=== PATIENT | male | born 1980 ===

== ENCOUNTER 2018-01-29 03:29 | Inpatient (IN) | payer MEDICARE, MEDICAID, OTHER ==
--- NOTE | 2018-01-29 04:37 | ED PDOC ---
Arrival/HPI - General Chief Complaint: Medical Clearance Time Seen by Provider: 01/29/18 03:46 Historian: Patient - History of Present Illness Narrative History of Present Illness (Text): 01/29/18 04:15 37 year old male, whose past medical history includes anxiety, bipolar disorder , depression, hepatitis, and schizophrenia, presents to the emergency department via EMS complaining of feeling weak. Patient was walking around and states that he felt weak. He reports he was suppose to be on Iron pills, but ran out around a month ago. Patient does not recall which clinic he goes to. Patient denies any fever, chills, chest pain, shortness of breath, black/dark stool, nausea, vomiting, diarrhea, urinary symptoms, back pain, neck pain, headache, dizziness, or any other complaints. PMD: None. Symptom Onset: Gradual Symptom Course: Unchanged Activities at Onset: Light Context: Walking Past Medical History - Provider Review Nursing Documentation Reviewed: Yes - Infectious Disease Hx of Infectious Diseases: None - Past Medical History Past Medical History: No Previous - Cardiac Hx Hypertension: No - Pulmonary Hx Respiratory Disorders: No - Neurological Hx Seizures: No - HEENT Hx HEENT Disorder: No - Renal Hx Renal Disorder: No - Endocrine/Metabolic Hx Endocrine Disorders: No - Hematological/Oncological Hx Blood Disorders: No - Integumentary Hx Dermatological Disorder: No - Musculoskeletal/Rheumatological Hx Musculoskeletal Disorders: No - Gastrointestinal Hx Gastrointestinal Disorders: No - Genitourinary/Gynecological Hx Sexually Transmitted Diseases: No - Psychiatric Hx Anxiety: Yes Hx Bipolar Disorder: Yes Hx Depression: Yes Hx Schizophrenia: Yes Hx Substance Use: No - Surgical History Hx Appendectomy: Yes - Anesthesia Hx Anesthesia: Yes Hx Anesthesia Reactions: No - Suicidal Assessment Feels Threatened In Home Enviroment: No Family/Social History - Physician Review Nursing Documentation Reviewed: Yes Family/Social History: No Known Family HX Smoking Status: Never Smoked Hx Alcohol Use: No Hx Substance Use: No Hx Substance Use Treatment: Yes Allergies/Home Meds Allergies/Adverse Reactions: Allergies No Known Allergies Allergy (Verified 01/29/18 03:35) per patient Home Medications: Home Meds Medication Instructions Recorded Confirmed Risperidone [Risperdal] 2 mg PO BID 12/11/16 01/29/18 Benztropine [Cogentin] 1 mg PO DAILY 01/29/18 01/29/18 Review of Systems - Physician Review All systems were reviewed & negative as marked: Yes - Review of Systems Constitutional: absent: Fevers, Other (Chills) Respiratory: absent: SOB Cardiovascular: absent: Chest Pain Gastrointestinal: absent: Diarrhea, Nausea, Vomiting Genitourinary Male: absent: Dysuria, Frequency, Hematuria Musculoskeletal: absent: Back Pain, Neck Pain Neurological: Other (Weakness). absent: Headache, Dizziness Physical Exam Vital Signs Reviewed: Yes Vital Signs Temp Pulse Resp BP Pulse Ox 01/29/18 03:40 98.1 F 81 17 112/57 L 100 Temperature: Afebrile Blood Pressure: Normal Pulse: Regular Respiratory Rate: Normal Appearance: Positive for: Well-Appearing, Non-Toxic, Comfortable Pain Distress: None Mental Status: Positive for: Alert and Oriented X 3 - Systems Exam Head: Present: Atraumatic, Normocephalic Pupils: Present: PERRL Extroacular Muscles: Present: EOMI Conjunctiva: Present: Normal Mouth: Present: Moist Mucous Membranes Neck: Present: Normal Range of Motion Respiratory/Chest: Present: Clear to Auscultation, Good Air Exchange. No: Respiratory Distress, Accessory Muscle Use Cardiovascular: Present: Regular Rate and Rhythm, Normal S1, S2. No: Murmurs Abdomen: Present: Normal Bowel Sounds. No: Tenderness, Distention, Peritoneal Signs Back: Present: Normal Inspection Upper Extremity: Present: Normal Inspection. No: Cyanosis, Edema Lower Extremity: Present: Normal Inspection. No: Edema Neurological: Present: GCS=15, CN II-XII Intact, Speech Normal Skin: Present: Warm, Dry, Normal Color. No: Rashes Psychiatric: Present: Alert, Oriented x 3, Normal Insight, Normal Concentration Medical Decision Making ED Course and Treatment: 01/29/18 04:15 Impression: 37 year old male presents for feeling weak. Patient is suppose to be taking Iron pills, but ran out. Plan: -- Labs -- Reassess and disposition Progress Notes: - Lab Interpretations Lab Results: 01/29/18 05:30 01/29/18 05:30 Lab Results 01/29/18 05:30: Sodium 145, Potassium 3.9, Chloride 108 H, Carbon Dioxide 27, Anion Gap 13, BUN 12, Creatinine 0.7 L, Est GFR ( Amer) > 60, Est GFR ( Non-Af Amer) > 60, Random Glucose 93, Calcium 9.3, Total Bilirubin 0.4, AST 46, ALT 20, Alkaline Phosphatase 82, Total Protein 6.5, Albumin 3.7, Globulin 2.8, Albumin/Globulin Ratio 1.3 01/29/18 05:30: WBC 5.4, RBC 2.59 L, Hgb 3.1 L*, Hct 13.2 L*, MCV 51.0 L, MCH 12.0 L, MCHC 23.5 L, RDW 22.0 H, Plt Count 355, Gran % 67.6, Lymph % (Auto) 20.9 L, [place] % (Auto) 7.2 H, Eos % (Auto) 3.0, Baso % (Auto) 1.3, Gran # 3.65, Lymph # (Auto) 1.1 L, [place] # (Auto) 0.4, Eos # (Auto) 0.2, Baso # (Auto) 0.07 I have reviewed the lab results: Yes - Transfer of Care Patient signed out to Dr:: Adrianna Pending Labs:: labs - Scribe Statement The provider has reviewed the documentation as recorded by the Irina Roca Provider Scribe Attestation: All medical record entries made by the Khariibchris were at my direction and personally dictated by me. I have reviewed the chart and agree that the record accurately reflects my personal performance of the history, physical exam, medical decision making, and the department course for this patient. I have also personally directed, reviewed, and agree with the discharge instructions and disposition. Disposition/Present on Arrival - Present on Arrival Any Indicators Present on Arrival: No History of DVT/PE: No History of Uncontrolled Diabetes: No Urinary Catheter: No History of Decub. Ulcer: No History Surgical Site Infection Following: None - Disposition Have Diagnosis and Disposition been Completed?: Yes Diagnosis: Weakness Disposition: HOME/ ROUTINE Disposition Time: 07:00 Condition: UNKNOWN Discharge Instructions (ExitCare): Weakness (ED) Referrals: PCP,NO [Primary Care Provider] - Follow up with primary Forms: ADMET[employer] ([place]qi)
[2018-01-29 05:51] LABS: ALB/GLOB RATIO 1.3 (1.1-1.8); ALBUMIN 3.7 g/dL (3.0-4.8); ALT/SGPT 20 U/L (7-56); AST/SGOT 46 U/L (17-59); BLOOD UREA NITROGEN 12 mg/dL (7-21); CALCIUM 9.3 mg/dL (8.4-10.5); GFR AFRICAN-AMERICAN > 60; GFR NON-AFRICAN AMERICAN > 60
[2018-01-29 05:58] LABS: BASO # 0.07 K/mm3 (0.0-2.0); BASO % 1.3 % (0.0-3.0); EOS # 0.2 (0.0-0.7); GRAN # 3.65 (1.4-6.5); GRAN % 67.6 % (50.0-68.0); LYMPH # 1.1 (1.2-3.4); LYMPH % 20.9 % (22.0-35.0); MEAN CORPUSCULAR HGB CONC 23.5 g/dl (31.0-37.0); MONO # 0.4 (0.1-0.6); MONO % 7.2 % (1.0-6.0); PLATELET COUNT 355 10^3/uL (120.0-450.0); RBC 2.59 10^6/uL (3.5-6.1); WHITE BLOOD COUNT 5.4 10^3/ul (4.5-11.0)
[2018-01-29 06:09] LABS: HEMOGLOBIN 3.1 g/dL (14.0-18.0)
[2018-01-29 06:34] LABS: INR 1.1 (0.93-1.08); PARTIAL THROMBOPLASTIN TIME 26.8 Seconds (25.1-36.5); PROTHROMBIN TIME 12.7 SECONDS (9.4-12.5)
[2018-01-29 06:41] LABS: MEAN CELL VOLUME 50.7 fl (80.0-105.0); MEAN CORPUSCULAR HEMOGLOBIN 11.7 pg (25.0-35.0); MEAN CORPUSCULAR HGB CONC 23.1 g/dl (31.0-37.0); PLATELET COUNT 364 10^3/uL (120.0-450.0); RBC 2.82 10^6/uL (3.5-6.1); RED CELL DISTRIBUTION WIDTH 21.8 % (11.5-14.5); WHITE BLOOD COUNT 5.7 10^3/ul (4.5-11.0)
[2018-01-29] MEDS ORDERED: Sodium Chloride 0.9% 1,000 ML IV ONE (06:46)
[2018-01-29 06:49] LABS: HEMOGLOBIN 3.3 g/dL (14.0-18.0)
[2018-01-29 11:00] LABS: IRON < 10 ug/dL (45-180); TOTAL IRON BINDING CAPACITY 394 ug/dL (261-462)
[2018-01-29 12:25] LABS: FERRITIN 1.9 ng/mL
[2018-01-29 12:55] LABS: FOLATE 13.1 ng/mL
[2018-01-29 13:38] LABS: T4 6.8 ug/dL (5.5-11.0)
[2018-01-29 13:51] LABS: T3 1.41 ng/mL (0.97-1.69)
[2018-01-29 14:03] LABS: MEAN CELL VOLUME 60.1 fl (80.0-105.0); MEAN CORPUSCULAR HEMOGLOBIN 16.8 pg (25.0-35.0); MEAN CORPUSCULAR HGB CONC 27.9 g/dl (31.0-37.0); PLATELET COUNT 321 10^3/uL (120.0-450.0); RBC 3.28 10^6/uL (3.5-6.1); WHITE BLOOD COUNT 5.4 10^3/ul (4.5-11.0)
[2018-01-29 14:04] LABS: HEMOGLOBIN 5.5 g/dL (14.0-18.0)
[2018-01-29 15:40] VITALS: BMI 25.0
[2018-01-29] MEDS ORDERED: Influenza Vaccine 60 mcg/0.5 mL SYR (4YR UP) IM ONE (15:40)
[2018-01-29] MEDS ORDERED: Pneumococcal 23-Valent Vaccine IM ONE (15:40)
--- NOTE | 2018-01-29 16:48 | CARD ---
APPROVED REPORT EKG Measurement Heart [id number] <Conclusion> Normal sinus rhythm Normal ECG
[2018-01-29 22:03] LABS: BASO # 0.06 K/mm3 (0.0-2.0); BASO % 0.8 % (0.0-3.0); EOS # 0.2 (0.0-0.7); EOS % 2.5 % (1.5-5.0); GRAN # 5.13 (1.4-6.5); GRAN % 72.7 % (50.0-68.0); LYMPH % 13.9 % (22.0-35.0); MEAN CORPUSCULAR HEMOGLOBIN 18.8 pg (25.0-35.0); MEAN CORPUSCULAR HGB CONC 29.4 g/dl (31.0-37.0); MONO # 0.7 (0.1-0.6); MONO % 10.1 % (1.0-6.0); PLATELET COUNT 322 10^3/uL (120.0-450.0); RBC 3.72 10^6/uL (3.5-6.1); WHITE BLOOD COUNT 7.1 10^3/ul (4.5-11.0)
--- NOTE | 2018-01-29 23:59 | HP ---
DATE; 01/29/2018 HISTORY OF PRESENT ILLNESS: This 37-year-old male with longstanding history of schizophrenia and psychosis was admitted to the critical care unit earlier today with advanced anemia and weakness. He presented to the ER complaining of shortness of breath and fatigue and was noted to have a hemoglobin of 3.1 and a hematocrit of 13.2 that on repeat showed a hemoglobin of 3.3 and a hematocrit of 14.3. I discussed this case with Dr. Zackary Patel from the emergency room who performed a rectal exam and stated that the patient had guaiac-negative stool; however, given the severity of his anemia, he was admitted to critical care and is in the process of receiving packed red blood cell transfusion at this time. PAST MEDICAL HISTORY: The patient states past medical history is significant for longstanding anemia that was never further evaluated with either GI workup or blood testing for which he was simply told to take iron pills as an outpatient with which he was noncompliant. He also states he has a history of a fractured left jaw and has had a blood cell transfusion in the past for history for anemia as well. He also has a longstanding history of schizophrenia and psychosis and denied any history of IV drug misuse or abuse. FAMILY HISTORY: Noncontributory. SOCIAL HISTORY: He states he is a current nondrinker and nonsmoker. REVIEW OF SYSTEMS: Constitutional: Denied fever or chills. Head: Denied any headache or seizures. Eye review: No change in visual acuity. Ear review: No hearing loss. Throat review: No swallowing difficulty. Neck review: No stiffness. Cardiac review: No knowledge of myocardial infarction. No knowledge of hypertension. Pulmonary: No cough. No hemoptysis. GI: No hematemesis. No melena. : No dysuria. Skin: No rash. Vascular: No claudication. Psychological: Chronic schizophrenia and psychosis. MEDICATIONS: He states outpatient medications included Cogentin and Risperdal. PHYSICAL EXAMINATION: GENERAL: The patient was lying in ICU, bed 6. VITAL SIGNS: Temperature of 98.4, respirations 18, pulse 85 and blood pressure 103/48 with a pulse ox of 100% on room air. HEENT: Head normocephalic, atraumatic. Eyes: No icterus. Ears: Clear. Throat: Noninjected. NECK: Supple. HEART: Regular S1, S2. LUNGS: Clear. ABDOMEN: Soft. EXTREMITIES: No edema. SKIN: Without rash. NEUROLOGICAL: Intact. PSYCHOLOGICAL: Alert. VASCULAR: Legs warm to touch. LABORATORY DATA: White count 5400, hemoglobin 5.5, hematocrit 19.7, platelets 221,000. PT/INR 1.1, PTT 26.8. Sodium 145, K 3.9, chloride 108, bicarb 27, BUN 12, creatinine 0.7, random blood sugar 93. Iron level less than 10, TIBC 394. Ferritin level 1.9, low. Bilirubin 0.4, AST 46, ALT 20 and alk phos 82. Vitamin B12 level 214. Folic acid level 13.1, T4 of 6.8, T3 of 1.41, TSH 1.45 normal. IMPRESSION: A 37-year-old male with severe anemia, most likely iron deficiency and history of psychosis and schizophrenia in his past. PLAN: The plan at the present time will be to maintain this patient in critical care while continuing blood cell transfusion and the patient is scheduled to have Cogentin 1 mg p.o. daily and Risperdal 2 mg p.o. b.i.d. while awaiting psychiatric evaluation from Dr. Vasques and hematological evaluation with Dr. Geo Trivedi. The patient is scheduled for a repeat CBC in a.m. He has been ordered to receive Venofer 200 mg IV daily x3 days as per Dr. Geo Trivedi from Hematology. He will continue on Pepcid 40 mg p.o. at bedtime and is ordered to have a soft bland diet. Once the patient is stabilized with a sufficient hemoglobin and hematocrit, he will be ordered to have consultation with GI, Dr. Louise Butcher for scheduling of endoscopy and colonoscopy. Greater than 75 minutes was spent in the care and management, review of x-rays, labs and medication for this patient today in critical care. This case was also reviewed with Dr. Rodger Hernandez, lone lead lineman. Genia Pang MD [facility]
[2018-01-30 06:15] LABS: HEMOGLOBIN 8.6 g/dL (14.0-18.0); MEAN CELL VOLUME 65.7 fl (80.0-105.0); MEAN CORPUSCULAR HEMOGLOBIN 19.8 pg (25.0-35.0); MEAN CORPUSCULAR HGB CONC 30.1 g/dl (31.0-37.0); PLATELET COUNT 288 10^3/uL (120.0-450.0); RBC 4.35 10^6/uL (3.5-6.1); WHITE BLOOD COUNT 8.1 10^3/ul (4.5-11.0)
--- NOTE | 2018-01-30 09:19 | PN ---
DATE: 01/30/2018 PAINTER SPRAY NOTE SUBJECTIVE: The patient is resting comfortably with O2 via nasal cannula. He has less shortness of breath and has been given several units of packed red blood cells. Latest hemoglobin is approximately 8.9. The patient had no complaints of pain, nausea, vomiting or diarrhea. No abdominal pain. No fever, chills. PHYSICAL EXAMINATION VITAL SIGNS: Note that his temperature is 98.5, his pulse is 62, respirations are 22 and BP is 112/70. SKIN: Warm and dry. HEENT: Head, atraumatic and normocephalic. Eyes, reactive to light. Ear, nose and throat seemed to be within normal limits. NECK: Supple. No JVD. No thyroid enlargement, no lymph nodes. HEART: Has regular rate and rhythm. Normal S1, S2. LUNGS: Reveal good breath sounds bilaterally. ABDOMEN: Soft. Decreased bowel sounds. GENITALIA: Deferred. RECTAL: Deferred. MUSCULOSKELETAL: No joint deformities. EXTREMITIES: Reveal slight lower extremity edema. NEUROLOGIC: He seemed to be grossly intact. DATA: As far as his laboratories are concerned, his white count is 8.1, hemoglobin is 8.6, hematocrit 28.6 with platelets of 288,000 and this patient's CMP is pending. IMPRESSION: As far as my impression, this patient presented with symptomatic anemia, etiology unclear. The patient has a history of schizophrenia and bipolar disease as well as hepatitis. PLAN: As far as our plan, we will follow up with Psychiatry as well as GI and Hematology/Oncology. The patient is getting Cogentin as well as iron. He is on Pepcid, Risperdal, Tylenol and Zofran. We will continue to treat aggressively along with the other consultants and the primary care doctor. Rodger Hernandez MD
[2018-01-30 11:24] LABS: MCH 13.1 pg (27.0-33.0); MCV 48.2 fL (80.0-100.0)
--- NOTE | 2018-01-30 19:36 | PN ---
DATE: 01/30/2018 SUBJECTIVE: This on 37-year-old male was examined in ICU, critical care bed #6, and this case was reviewed in detail with his nurse, Ginger, and himself. The patient to date has had multiple blood cell transfusions and remains persistently anemic. On further questioning of the patient, he states several months ago, he did have bright red blood per rectum and melena but did not pursue any medical intervention at that time. At present, his blood work is showing severe iron-deficiency anemia and he is receiving both packed red blood cell transfusions and IV Venofer under the direction of Dr. Goe Trivedi from Oncology. At present, he denies any fever, chills, chest pain, or shortness of breath, and is wearing nasal O2. PHYSICAL EXAMINATION: VITAL SIGNS: His temperature is 98.6, respirations 21, pulse 68, and blood pressure 109/51 with a pulse ox of 99%. HEENT: Head: Normocephalic, atraumatic. Eyes: No icterus. Ears: Clear. Throat: Noninjected. NECK: Supple. HEART: Regular S1, S2. LUNGS: Clear. ABDOMEN: Soft. EXTREMITIES: No edema. SKIN: Without rash. NEUROLOGICAL: Intact. PSYCHOLOGICAL: Alert. VASCULAR: Legs warm to touch. LABORATORY DATA: White count 8100, hemoglobin 8.6, hematocrit 28.6, platelets 288,000. On admission, hemoglobin 3.1, hematocrit 13.2, and platelets 355,000. PT/INR 1.10, PTT 26.8. Sodium 145, K 3.9, chloride 108, bicarb 27, BUN 12, creatinine 0.7, random blood sugar 93. Iron level less than 10, percent saturation test not performed, ferritin 1.9, low. Bilirubin 0.4, AST 46, ALT 20, and alkaline phosphatase 82. Vitamin B12 level low, 214. Folic acid 13.1, normal. TFTs normal including TSH 1.45, T3 of 1.41, and T4 of 6.8. IMPRESSION: This is a 37-year-old male with severe iron-deficiency anemia who presented with weakness and shortness of breath, history of psychosis and longstanding schizophrenia, now with advanced anemia despite multiple packed red blood cell transfusions. 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 daily, Risperdal 2 mg p.o. b.i.d. while awaiting psychiatric evaluation by Dr. Vasques from Psychiatry. The patient is ordered to receive 1000 mcg intramuscularly of B12 and also 1000 mcg p.o. daily of B12. He is ordered to have Zofran 4 mg IV q. 6 hours p.r.n. nausea or vomiting, Venofer 200 mg IV daily for a total of 3 doses, Pepcid 40 mg p.o. at bedtime. Ultimate plan will be to have full endoscopy and colonoscopy scheduled by GI when medically stable. The patient is tolerating a soft bland hepatic diet. Stool for occult blood has been requested and the patient is ordered to have CBC in the a.m. Greater than 60 minutes was spent in the care, management, review of labs, meds, orders, and discussion with the patient at his bedside today with intensive care nursing present. All questions were answered. Genia Pang MD [facility]
--- NOTE | 2018-01-31 05:19 | CON ---
DATE: HISTORY OF PRESENT ILLNESS: Patient is a single 37-year-old male with a history of schizoaffective disorder and multiple hospitalizations most recently at [facility] about two years ago, who is in outpatient treatment with Dr. Cruz and prescribed Risperdal and Cogentin, which patient reports he has been compliant with, who was admitted to ICU after he presented to the ER complaining about weakness. Laboratory work revealed profoundly low hemoglobin and hematocrit in the range of 3.1 and 13.2 respectively. Patient was admitted in the ICU as a precaution, and Psychiatry was called, consulted as patient has a history of schizophrenia. I met this patient at bedside, and he is cooperative and well oriented to circumstances, month, and year. This provider took care of the patient a few years ago at [facility] and patient remembers this provider from that hospitalization. Patient is consistent and coherent and responses to relevant questions. He indicates that he has been taking his medications, Risperdal and Cogentin, and denies any current side effects from them and has been following up with Dr. Cruz most recently last month at [facility]. He denies any major stressors except for current homelessness. He lives at a residential; however, he does have a voucher for section 8 housing, and I think the patient will be able to move into own apartment within a month. Patient is looking forward to this move. He denies feeling depressed, feels hopeful. He denies any conflicts with anybody or thoughts to harm anybody. Patient does not appear paranoid or hypervigilant. Delusions were not elicited, and he is not hallucinating. Presently, the patient is in good control and denies any major concerns. Patient reports that he will cooperate with treatment team regarding their recommendations while he is hospitalized on the unit as he wants to get better and be discharged. PSYCHIATRIC HISTORY: Patient reports that his first hospitalization occurred about three to four years ago at [facility] after he had a suicide attempt. Patient was treated by this provider at that time. Patient also reports that he was admitted two years ago at [facility] as that was the most recent hospitalization. Patient is currently following up with Dr. Cruz at [facility] and most recent followup this last month. Patient reports that he is prescribed Risperdal and Cogentin for his symptoms. SOCIAL HISTORY: Patient was born and raised in [place]. He is single. He denies having any children. He lives in a residential but is in the process of getting voucher for a section 8 housing, and indicates that he should get his own apartment within a month. He is not working and he is on social security, disability. Regarding legal history, patient reports that he was actually in half-way recently for supposedly making the terrorist threats at the residential. Patient indicates that he was cutting a steak and cheeses down with his knife, security systems technician saw him with the knife, thought that the patient was threatening or might be a danger because he had a knife on his purse, and police were called. Patient was arrested, but released on probation for "terrorist threat;" however, patient returned to half-way after he was caught on the right rail without a ticket and was recently released a few months ago. Patient denies having any plan to harm anybody or kill anybody and does not appear to be particularly angry or irritable or edgy or guarded during my interview today. VITAL SIGNS: Vital signs were reviewed at 5:00 p.m. [facility]. Today they are temperature 98.6, pulse 91, blood pressure 111/63, and respirations 22. LABORATORY DATA: Labs were also reviewed, and most recent labs at 6:00 a.m. this morning show hemoglobin and hematocrit of 8.6 and 28.6 respectively. This is much improved from presenting values of 3.1 and 13.2 yesterday at 5:30 a.m. Of course, the patient had transfusions in the interim. Hemoglobin workup is pending. CURRENT PSYCHIATRIC MEDICATIONS: Include Cogentin 1 mg daily, Risperdal 2 mg p.o. b.i.d. IMPRESSION: Schizoaffective disorder in control, currently asymptomatic. RECOMMENDATION: Patient to continue with current medications. He does not appear to show any acute symptoms at this time, and there is no indication for change his medication. Review of history does not indicate that Risperdal is associated with anemia and unlikely cause of patient's presentation. Psychiatry will follow up one more time tomorrow to ensure stability; and if he continues to remain stable, we will sign off for patient to follow up with his outpatient psychiatrist, Dr. Cruz at the time. Carlos Marx MD [facility] # [id number]
[2018-01-31 06:14] LABS: MEAN CORPUSCULAR HEMOGLOBIN 21.3 pg (25.0-35.0); MEAN CORPUSCULAR HGB CONC 30.6 g/dl (31.0-37.0); PLATELET COUNT 329 10^3/uL (120.0-450.0); RBC 5.22 10^6/uL (3.5-6.1); WHITE BLOOD COUNT 9.3 10^3/ul (4.5-11.0)
[2018-01-31 06:27] LABS: HEMOGLOBIN 11.1 g/dL (14.0-18.0); MEAN CELL VOLUME 69.5 fl (80.0-105.0)
--- NOTE | 2018-01-31 09:15 | CON ---
DATE: 01/29/2018 NURSE PRIVATE DUTY CONSULTATION REQUESTING PHYSICIAN: Genia Pang MD CHIEF COMPLAINT: The patient presented with weakness and shortness of breath. HISTORY OF PRESENT ILLNESS: The patient is a 37-year-old male with a history of anxiety, bipolar disease, depression, and hepatitis as well as schizophrenia. The patient states that he has been feeling weak as well as some shortness of breath with mild exertion. He also states that he has been on iron pills and he has not taken his iron pills over the last month because he ran out. He has had one episode of anemia in the past where he needed transfusions that was fairly severe episode as per the patient. No fever or chills. No nausea or vomiting. No diarrhea. No chest pain. No abdominal pain. No cough or congestion. PAST MEDICAL HISTORY: Is as above. ALLERGIES: HE HAS NO KNOWN ALLERGIES. MEDICATIONS: His current medications can be evaluated as per the nurse's intake form. SOCIAL HISTORY: He is a nonsmoker. No alcohol. No present history of substance abuse. He does have a history of substance use and treatment in the past. REVIEW OF SYSTEMS: CONSTITUTIONAL: All negative. HEENT: All negative. RESPIRATORY: The patient did present with some shortness of breath on exertion. CARDIOVASCULAR: All negative. GASTROINTESTINAL: All negative. GENITOURINARY: All negative. MUSCULOSKELETAL: All negative. NEUROPSYCHIATRIC: All negative. HEMATOLOGIC: The patient presents with severe anemia. IMMUNOLOGIC: All negative. INTEGRITY: All negative. ENDOCRINE: All negative. PHYSICAL EXAMINATION: VITAL SIGNS: Temperature is 98.1, his pulse is 81, respirations are 17 and BP is 112/57. O2 saturation is 100%. HEENT: Head is atraumatic, normocephalic. Eyes reactive to light. Ears, nose and throat seem to be within normal limits. NECK: Supple. No JVD. No thyroid enlargement. No lymph nodes. HEART: Has regular rate and rhythm. Normal S1 and S2. LUNGS: Reveal good breath sounds bilaterally. ABDOMEN: Abdomen is soft, nontender. Normal bowel sounds. No organomegaly noted. GENITALIA AND RECTAL: Deferred. MUSCULOSKELETAL: No joint deformities. EXTREMITIES: Reveal 1+ lower extremity edema. NEUROLOGICALLY: He seemed to be grossly intact. LABORATORY DATA: As far as his laboratories are concerned, his white count is 5.4, hemoglobin is 3.1, hematocrit 13.2, with platelets of 355,000. Sodium is 145, potassium 4.9, chloride is 108, CO2 of 27, with a BUN of 12, creatinine of 0.7, and a glucose 93. IMPRESSION: As far as my impression, this patient has symptomatic anemia with weakness and shortness of breath on exertion. He has a history of bipolar disease with anxiety and depression as well as schizophrenia. The patient has a history of hepatitis as well. He does have a past history of anemia and requiring blood transfusions as well. PLAN: The patient has been typed and crossmatched for 4 units, and when available, he will get the transfusion. He is on IV fluids, O2 support as well. Hematology Oncology consult has been called with Dr. Trivedi, and Psychiatry consult has been called as well. We will monitor closely and continue to treat aggressively along with the other consultants and the primary care doctor. Rodger Hernandez MD
--- NOTE | 2018-01-31 10:25 | CP.CCUPN ---
<Calderon Tompkins - Last Filed: 01/31/18 10:31> CCU Subjective - Physician Review Subjective (Free Text): Patient seen and evaluated bedside in the ICU. patient says he is doing better. no acute issues overnight. No acute complaints at this time. Denies shortness of breath, weakness, chest pain or dizziness. 01/31/18 10:22 Critical Care Time Spent (in minutes): 35 CCU Objective - Vital Signs / Intake & Output Intake and Output (Last 8hrs): Intake & Output 01/30/18 01/31/18 01/31/18 22:59 06:59 14:59 Intake Total 2535 Output Total 2650 Balance -115 Intake: IV 750 Right Antecubital 750 Oral 1080 Blood Product 650 Red Blood Cells Cpd As1 325 Lr Unit [id number] Red Blood Cells Cpd As1 325 Lr Unit [id number] Other 55 Red Blood Cells Cpd As1 55 Lr Unit [id number] Output: Urine 2650 Urine, Voided 2650 - Physical Exam Head: Positive for: Atraumatic, Normocephalic Pupils: Positive for: PERRL Extroacular Muscles: Positive for: EOMI Conjunctiva: Positive for: Normal Mouth: Positive for: Moist Mucous Membranes. Negative for: Drooling Neck: Positive for: Normal Range of Motion Respiratory/Chest: Positive for: Clear to Auscultation, Good Air Exchange. Negative for: Respiratory Distress, Accessory Muscle Use Cardiovascular: Positive for: Regular Rate and Rhythm, Normal S1, S2. Negative for: Murmurs Abdomen: Positive for: Normal Bowel Sounds. Negative for: Tenderness, Distention, Peritoneal Signs Back: Positive for: Normal Inspection Upper Extremity: Positive for: Normal Inspection. Negative for: Cyanosis, Edema Lower Extremity: Positive for: Normal Inspection. Negative for: Edema Neurological: Positive for: GCS=15, CN II-XII Intact, Speech Normal Skin: Positive for: Warm, Dry, Normal Color. Negative for: Rashes Psychiatric: Positive for: Alert, Oriented x 3, Normal Insight, Normal Concentration - Medications Active Medications: Active Medications Generic Name Dose Route Start Last Admin Trade Name Freq PRN Reason Stop Dose Admin Acetaminophen 650 mg 01/29/18 07:13 Tylenol 325mg Tab PO Q6H PRN Fever >100.4 F Benztropine Mesylate 1 mg 01/29/18 10:00 01/30/18 09:46 Cogentin PO 1 mg DAILY DARREN Administration Cyanocobalamin 1,000 mcg 01/31/18 10:00 Vitamin B12 1000 Mcg Tab PO DAILY DARREN Famotidine 40 mg 01/29/18 22:00 01/31/18 05:14 Pepcid PO Not Given HS DARREN Iron Sucrose 200 mg/ Sodium 110 mls @ 110 mls/hr 01/29/18 12:30 01/30/18 09: 46 Chloride IVPB 01/31/18 10:59 110 mls/hr DAILY DARREN Administration Ondansetron HCl 4 mg 01/29/18 07:13 Zofran Inj IVP Q6H PRN Nausea/Vomiting Risperidone 2 mg 01/29/18 10:00 01/30/18 17:22 Risperdal Tab PO 2 mg BID DARREN Administration Protocol - Patient Studies Lab Studies: Microbiology Studies 01/29/18 08:35 MRSA Culture (Admit) - Final Naris MRSA NOT DETECTED Lab Studies 01/31/18 Range/Units 05:16 WBC 9.3 (4.5-11.0) 10^3/ul RBC 5.22 (3.5-6.1) 10^6/uL Hgb 11.1 L D (14.0-18.0) g/dL Hct 36.3 L (42.0-52.0) % MCV 69.5 L D (80.0-105.0) fl MCH 21.3 L (25.0-35.0) pg MCHC 30.6 L (31.0-37.0) g/dl Plt Count 329 (120.0-450.0) 10^3/uL Laboratory Results - last 24 hr 01/31/18 05:16 WBC 9.3 RBC 5.22 Hgb 11.1 L D Hct 36.3 L MCV 69.5 L D MCH 21.3 L MCHC 30.6 L Plt Count 329 EKG/Cardiology Studies: Cardiology / EKG Studies 01/30/18 16:17 EKG [ELECTROCARDIOGRAM] Urgent Comment: Reason For Exam: questionable junctional beats? Review of Systems - Constitutional Constitutional: absent: Chills - EENT Eyes: UNREMARKABLE - Cardiovascular Cardiovascular: UNREMARKABLE - Respiratory Respiratory: UNREMARKABLE - Gastrointestinal Gastrointestinal: UNREMARKABLE - Genitourinary Genitourinary: UNREMARKABLE - Neurological Neurological: UNREMARKABLE Critical Care Progress Note - Nutrition Nutrition: Nutrition Category Date Time Status Altered GI/Hepatic Diet [DIET] Diets 01/29/18 Breakfast Ordered Assessment/Plan - Assessment and Plan (Free Text) Assessment: 37 year old male with past medical history of anemia, schizophrenia and psychosis presented with anemia. Patient was monitored and treated for anemia. Plan: 1. Anemia -currently stable continue to monitor -Hgb: 11.1, Hct 36.3 -venofer -B12 -continue to monitor 2. Schizophrenia/ Psychosis -management per psyche GI Prophylaxis: Pepcid <Alhaji Luevano - Last Filed: 01/31/18 12:37> CCU Objective - Vital Signs / Intake & Output Intake and Output (Last 8hrs): Intake & Output 01/30/18 01/31/18 01/31/18 22:59 06:59 14:59 Intake Total 2535 Output Total 2650 Balance -115 Intake: IV 750 Right Antecubital 750 Oral 1080 Blood Product 650 Red Blood Cells Cpd As1 325 Lr Unit [id number] Red Blood Cells Cpd As1 325 Lr Unit [id number] Other 55 Red Blood Cells Cpd As1 55 Lr Unit [id number] Output: Urine 2650 Urine, Voided 2650 - Medications Active Medications: Active Medications Generic Name Dose Route Start Last Admin Trade Name Freq PRN Reason Stop Dose Admin Acetaminophen 650 mg 01/29/18 07:13 Tylenol 325mg Tab PO Q6H PRN Fever >100.4 F Benztropine Mesylate 1 mg 01/29/18 10:00 01/31/18 10:30 Cogentin PO 1 mg DAILY DARREN Administration Cyanocobalamin 1,000 mcg 01/31/18 10:00 01/31/18 10:30 Vitamin B12 1000 Mcg Tab PO 1,000 mcg DAILY DARREN Administration Famotidine 40 mg 01/29/18 22:00 01/31/18 05:14 Pepcid PO Not Given HS DARREN Ondansetron HCl 4 mg 01/29/18 07:13 Zofran Inj IVP Q6H PRN Nausea/Vomiting Risperidone 2 mg 01/29/18 10:00 01/31/18 10:30 Risperdal Tab PO 2 mg BID DARREN Administration Protocol - Patient Studies Lab Studies: Microbiology Studies 01/29/18 08:35 MRSA Culture (Admit) - Final Naris MRSA NOT DETECTED Lab Studies 01/31/18 Range/Units 05:16 WBC 9.3 (4.5-11.0) 10^3/ul RBC 5.22 (3.5-6.1) 10^6/uL Hgb 11.1 L D (14.0-18.0) g/dL Hct 36.3 L (42.0-52.0) % MCV 69.5 L D (80.0-105.0) fl MCH 21.3 L (25.0-35.0) pg MCHC 30.6 L (31.0-37.0) g/dl Plt Count 329 (120.0-450.0) 10^3/uL Laboratory Results - last 24 hr 01/31/18 05:16 WBC 9.3 RBC 5.22 Hgb 11.1 L D Hct 36.3 L MCV 69.5 L D MCH 21.3 L MCHC 30.6 L Plt Count 329 EKG/Cardiology Studies: Cardiology / EKG Studies 01/30/18 16:17 EKG [ELECTROCARDIOGRAM] Urgent Comment: Reason For Exam: questionable junctional beats? Critical Care Progress Note - Nutrition Nutrition: Nutrition Category Date Time Status Altered GI/Hepatic Diet [DIET] Diets 01/29/18 Breakfast Ordered Assessment/Plan - Assessment and Plan (Free Text) Plan: Patient seen and examined on rounds with resident, agree with note with following additions/exceptions: Pt is 37yo male presented with symptomatic anemia, s/p PRBC transfusion, with appropriate response in HH. Hgb stable, afebrile, HD stable, comfortable in NAD. Folow up GI, PPI. Transfer to floor.
--- NOTE | 2018-01-31 14:56 | PN ---
DATE: 01/31/2018 CRITICAL CARE PROGRESS NOTE SUBJECTIVE: This 37-year-old male who was examined in ICU bed 6 where he is receiving an IV Venofer iron infusion for severe iron-deficiency anemia. The patient was admitted with a hemoglobin of 3.1 and required approximately 8 units of blood cell transfusion. At present, his hemoglobin is 11.1 with a hematocrit of 36.3. He is out of bed to chair. He is calm. He was seen by Psychiatry and they concur with the continued use of Risperdal and Cogentin for his longstanding history of paranoid schizophrenia. PHYSICAL EXAMINATION: VITAL SIGNS: At present, he remains in a normal sinus rhythm on the child monitor. Temperature is 98.5, respirations 19, pulse 62 and blood pressure 106/64 with pulse ox 98% on room air. HEENT: Head normocephalic, atraumatic. Eyes: No icterus. Ears: Clear. Throat: Noninjected. NECK: Supple. HEART: Regular S1, S2. LUNGS: Clear. ABDOMEN: Soft. EXTREMITIES: No edema. SKIN: Without ulcers. VASCULAR: Legs warm to touch. NEURO: Intact. PSYCHOLOGICAL: Calm. LABORATORY DATA: White count 9300, hemoglobin 11.1, hematocrit 36.3, platelets 329,000. PT/INR 1.10, PTT 26.8. Sodium 145, K 3.9, chloride 108, bicarb 27, BUN 12, creatinine 0.7, random blood sugar 93. Iron level less than 10. Ferritin level low 1.9. Bilirubin 0.4, AST 46, ALT 20 and alk phos 82. B12 low 214. Folic acid normal 13.1. All thyroid function testing was normal including TSH 1.45, T3 of 1.41 and T4 of 6.8. Nasal swab, no MRSA detected. IMPRESSION: A 37-year-old male with severe iron-deficiency anemia, admitted with shortness of breath and marked weakness, history of longstanding paranoid schizophrenia and psychosis and low levels of vitamin B12. PLAN: The plan as discussed with the patient, nursing, hematology, Dr. Geo Trivedi and lighting engineer will be to continue IV iron infusion. The patient was admitted with stools that were guaiac negative, but he will still need a GI evaluation for endoscopy and colonoscopy when medically stable. He is ordered to have Cogentin 1 mg p.o. daily, Pepcid 40 mg p.o. at bedtime, Risperdal 2 mg p.o. b.i.d., vitamin B12 of 1000 mcg p.o. daily and Zofran 4 mg IV q. 6 hours p.r.n. nausea, vomiting. He is tolerating a soft bland diet. I will order a consultation with GI and a 2-D echocardiogram for completeness sake. Greater than 35 minutes was spent in the critical care management, review of labs, orders and discussion of this patient's care today. All questions were answered. Genia Pang MD MTDD
--- NOTE | 2018-01-31 16:59 | CON ---
DATE: HEMATOLOGY CONSULTATION HISTORY OF PRESENT ILLNESS: This is a 37-year-old man with severe anemia. The patient gives a poor history. He states that he was noted to be iron deficient before and ran out of his iron pills. PHYSICAL EXAMINATION: SKIN: No petechiae. No bruises. HEENT: Anicteric. NODES: Nonpalpable in axillary, cervical, supraclavicular, or inguinal regions. LUNGS: Clear at present. HEART: S1, S2. ABDOMEN: Shows no liver, no spleen, no tenderness, no rebound, no ascites. EXTREMITIES: No edema. CENTRAL NERVOUS SYSTEMS: No focal findings. LABORATORY DATA: On admission, the patient's hemoglobin is 3.3 with an MCV of 50 and ferritin was less than 2. His hemoglobin is now up to 11. He was given IV iron as well as transfusions and he says he feels better. The second thing is the B12 was 214 which was slightly low and when I reordered the B12 with homocysteine level, anti-parietal antibodies just to recheck before we decide to treat him. So at this point, he needs the GI workup to evaluate for the iron deficiency and could be on iron pills, I would suggest ferrous fumarate with Kira-Sequels to be given to him as an outpatient for at least six months to build back his iron levels and his bone marrow or as an outpatient could be arranged for him to get the iron infusions. Geo Trivedi MD
--- NOTE | 2018-01-31 17:05 | PCM.PYCHPN ---
Psychiatric Progress Note - Psychiatric Progress Note Patient seen today, length of contact: 25 Patient Chief Complaint: Patient had been admitted to the ICU in a weakened condition after being significantly anemic. He has a psychiatric history of an apparent schizoaffective disorder. Initial psychiatric consultation of Dr. michaels twice a day and reviewed. Chart reviewed. Patient interviewed. The patient has been under the care of his private psychiatrist, Dr. finn STEWART for none defined period of time. Indicates that this is not a [facility]. Patient has been hospitalized approximately 5 times. Presently does not appear to be in any acute distress. Has long here and bearded. He also has multiple tattoos. Patient indicates that he is a participant in the [facility] program and attends an [facility] 2 hours a day 2 days a week. Lives also in a assisted living situation. Does not presently appear to be in any acute distress. Not overtly homicidal suicidal or psychotic. Problems Identified/Issues Discussed: As noted above. Patient has a psychiatric history of approximately 5-6 years duration ( according to the patient). His maintained on Pep[place] and Cogentin by his psychiatrist Dr. suarez Medical Problems: Patient admitted with significant anemia. His hemoglobin and hematocrit have increased significantly since admission. Laboratory results reviewed. Diagnostic Results: Hemoglobin now 11.1 hematocrit 36.3. This is a significant improvement from his time of admission. 0. A urine drug screen was negative. DSM 5 Symptoms Update: Alert, oriented to 3 spheres. Somewhat constricted in affect. Here long, ritually Brown. Bearded. Multiple he tattooed. Denies homicidal or suicidal thoughts. Denies auditory or visual hallucinations at this time. Insight and judgment debatable. Medication Change: No Medical Record Reviewed: Yes Consults ordered or reviewed: Reviewed Mental Status Examination - Cognitive Function Orientation: Person, Place, Situation, Time Memory: Intact Attention: WNL Concentration: WNL Association: WNL Fund of Knowledge: [facility] Decription of patient's judgement and insights: Aware of reasons why he is presently hospitalized. Presents a reasonably concise psychiatric history. - Mood Mood: Neutral - Affect Affect: Constricted - Speech Speech: Appropriate, Soft - Formal Thought Process Formal Thought Process: No Impairment - Suicidal Ideation Suicidal Ideation: No - Homicidal Ideation Homicidal Ideation: No Goal/Treatment Plan - Goal/Treatment Plan Progress Toward Problem(s) and Goals/Treatment Plan: Will have social work contact his rash worker with regard to informing them of his present status and preparation for his ultimate discharge and return to their IOP program. - Smoking Cessation Smoking Cessation Initiated: No Reason for not providing: Dealing with multiple medical problems presently.
[2018-02-01 06:46] LABS: HEMOGLOBIN 11.5 g/dL (14.0-18.0); MEAN CELL VOLUME 71.8 fl (80.0-105.0); MEAN CORPUSCULAR HEMOGLOBIN 21.5 pg (25.0-35.0); MEAN CORPUSCULAR HGB CONC 29.9 g/dl (31.0-37.0); PLATELET COUNT 328 10^3/uL (120.0-450.0); RBC 5.35 10^6/uL (3.5-6.1); WHITE BLOOD COUNT 10.2 10^3/ul (4.5-11.0)
[2018-02-01] MEDS ORDERED: Sodium Chloride 0.9% 1,000 ML IV SCH (14:00)
[2018-02-01] MEDS ORDERED: Propofol 10 mg/ml Inj (20 ML) ONE ×2 (14:43→15:07)
--- NOTE | 2018-02-01 15:53 | CARD ---
APPROVED REPORT EXAM: Two-dimensional and M-mode echocardiogram with Doppler and color Doppler. INDICATION CARDIAC FUNCTION 2D DIMENSIONS Left Atrium (2D)3.8 (1.6-4.0cm)IVSd1.2 (0.7-1.1cm) LVDd5.3 (3.9-5.9cm)PWd1.2 (0.7-1.1cm) LVDs3.9 (2.5-4.0cm)FS (%) 26.8 % LVEF (%)51.8 (>50%) M-Mode DIMENSIONS Aortic Root2.70 (2.2-3.7cm)Aortic Cusp Exc.2.00 (1.5-2.0cm) Aortic Valve AoV Peak Tkxzqqog601.0cm/Sudha Peak GR.12mmHg Mitral Valve E/A ratio0.0 TDI E/Lateral E'0.0E/Medial E'0.0 Tricuspid Valve TR Peak [id number]/sRAP [id number] Peak Gr.23mmHg [id number] LEFT VENTRICLE The left ventricle is normal size. There is mild concentric left ventricular hypertrophy. The left ventricular function is normal. The left ventricular ejection fraction is within the normal range. There is normal LV segmental wall motion. RIGHT VENTRICLE The right ventricle is normal size. The right ventricular systolic function is normal. ATRIA The left atrium size is normal. The right atrium size is normal. The interatrial septum is intact with no evidence for an atrial septal defect. AORTIC VALVE The aortic valve is normal in structure. No aortic regurgitation is present. There is no aortic valvular stenosis. MITRAL VALVE The mitral valve is normal in structure. Mitral regurgitation is trace. TRICUSPID VALVE The tricuspid valve is normal in structure. There is mild tricuspid regurgitation. PULMONIC VALVE The pulmonary valve is normal in structure. GREAT VESSELS The aortic root is normal in size. The IVC is normal in size and collapses >50% with inspiration. PERICARDIAL EFFUSION There is no pleural effusion. There is no pericardial effusion. <Conclusion> Normal chamber size. Mild concentric LVH. Normal LV systolic function. Mild TR.
--- NOTE | 2018-02-01 17:37 | PN ---
DATE: 02/01/2018 SUBJECTIVE: This 37-year-old male is on schedule for upper endoscopy in the setting of severe iron-deficiency anemia which required multiple blood cell transfusions and parenteral Venofer infusion. At present, the patient remains calm despite longstanding history of paranoid schizophrenia and is cooperative with his psychotropic medication as outlined including Risperdal and Cogentin. The patient denies any fever, chills, chest pain, shortness of breath, although he was admitted with marked fatigue and shortness of breath. Of note, his 2D echocardiogram remains pending. PHYSICAL EXAMINATION: VITAL SIGNS: Temperature is 97.9, respirations 20, pulse 55, and blood pressure 103/52 with a pulse ox of 97%. HEENT: Head: Normocephalic, atraumatic. Eyes: No icterus. Ears: Clear. Throat: Noninjected. NECK: Supple. HEART: Regular, S1 and S2. LUNGS: Clear. ABDOMEN: Soft. EXTREMITIES: No edema. SKIN: Without rash. NEUROLOGIC: Intact. PSYCHOLOGIC: Calm. VASCULAR: Legs warm to touch. LABORATORY DATA: Show white count 10,200, hemoglobin 11.5, hematocrit 38.4, and platelets 328,000. PT/INR 1.10, PTT 26.8. Sodium 145, K 3.9, chloride 108, bicarb 27. BUN 12, creatinine 0.7. Random blood sugar 93. Iron level less than 10, ferritin low at 1.9. All liver function testing was normal including bilirubin 0.4, AST 46, ALT 20, and alk phos 82. Vitamin B12 level after B12 administration 996. Folic acid 13.1. All TFTs were normal and homocysteine level is normal at 10.7. IMPRESSION: A 37-year-old male with longstanding history of paranoid schizophrenia, now admitted with pronounced iron-deficiency anemia with history of gastrointestinal bleeding in his past, who has completed a successful blood transfusion and IV Venofer protocol infusion. He is on schedule to undergo endoscopy, colonoscopy, and additional testings as deemed necessary by GI. He is scheduled to receive Cogentin 1 mg p.o. daily, Pepcid 40 mg p.o. at bedtime, Risperdal 2 mg p.o. b.i.d., vitamin B12 of 1000 mcg p.o. daily, and is being followed by Dr. Vasques from Psychiatry, Dr. Butcher from GI, and Dr. Trivedi from Hematology/Oncology. Greater than 35 minutes was spent in the care management, review of labs, orders, and outlining of medication and treatment for this patient today as well as discussion with his nurse, Jackie. All questions were answered. Genia Pang MD MTDSanya
[2018-02-01] MEDS ORDERED: Peg-Electrolyte Oral Soln 4L (Golytely) PO ONE (20:03)
--- NOTE | 2018-02-02 01:29 | PN ---
DATE: SUBJECTIVE: Patient is a 37-year-old male with a prior psychiatric history that appears to be of a schizoaffective disorder, who is admitted in a state of anemia. He has been under the care of his private psychiatrist, Dr. Cruz. He has been maintained on risperidone and Cogentin in the past. Presently, psychotropically, he is being maintained on Cogentin 1 mg daily and Risperdal 2 mg b.i.d. He is alert, oriented to three spheres, cooperative, soft spoken, and provides little insight into his thought, but denies suicidality, homicidality or psychotic ideation. Nursing notes that the patient has been comfortable. The patient is scheduled for colonoscopy tomorrow under the care of Dr. Butcher. Dr. Pang's note has been reviewed. His case was reviewed with his nurse. Blood pressure 93/57, pulse 53, temperature 98.5, respiratory rate 18. His hemoglobin today has been 11.5, hematocrit 38.4. We will continue to monitor with you. Andrew Vasques MD/ PhD
--- NOTE | 2018-02-02 05:18 | PN ---
DATE: 02/01/2018 SUBJECTIVE: This is a 37-year-old patient with a past medical history of schizoaffective disorder, admitted with severe anemia, with a hemoglobin of 3.3, patient did have transfusions. He is now with hemoglobin stable at 11.5. He did not have any melena or bleeding per rectum while in the hospital. No complaints of any abdominal pain. Patient underwent an upper GI endoscopy, which showed multiple antral ulcers and also pyloric channel ulcer. PHYSICAL EXAMINATION: VITAL SIGNS: Stable. ABDOMEN: Soft. There is no tenderness. HEART si s2 heard regular LUNG Bilateral air entry present normal vesicular EXTREMITIES: No edema. No cyanosis. NEUROLOGIC: Alert. Oriented. IMPRESSION: 1. Gastric ulcers and pyloric channel ulcers. 2. Severe anemia, status post transfusion. Other comorbidities include schizoaffective disorder. The likely cause for this patient with severe anemia could be the gastrointestinal bleeding from the ulcerations. However, in view of the severity of the anemia, it is reasonable to consider colonoscopic evaluation. He may also benefit from CT evaluation of the abdomen and pelvis after the colonoscopic evaluation. I will continue the high dose proton pump inhibitor. We will continue to closely follow up his care and suggest further management based on the clinical course. Louise Butcher MD MTDSanya
[2018-02-02 06:57] LABS: HEMOGLOBIN 11.3 g/dL (14.0-18.0)
[2018-02-02 07:11] LABS: BLOOD UREA NITROGEN 12 mg/dL (7-21); CALCIUM 9.6 mg/dL (8.4-10.5); GFR AFRICAN-AMERICAN > 60; GFR NON-AFRICAN AMERICAN > 60
[2018-02-02] MEDS ORDERED: Magnesium Citrate Oral SOL (300 ml) PO STA (08:28)
[2018-02-02] MEDS ORDERED: Bisacodyl 5mg EC Tab PO STA (08:28)
--- NOTE | 2018-02-02 09:49 | CP.PCM.CON ---
History of Present Illness - History of Present Illness History of Present Illness: 02/01/18 GI Consult Note CC: Weakness Fatgiue HPI: 37 year old male with past medical history of anemia, schizophrenia and psychosis presented to [facility] with complaints of weakness. Patient states he was trying to ambulate when he became short of breath and profoundly exhausted and weak. Pt does take iron supplements at home for anemia, but has been without medications for approximately a month ago. Patient denies any fever, chills, chest pain, shortness of breath, black/dark stool, nausea, vomiting, diarrhea, urinary symptoms, back pain, neck pain, headache, dizziness, or any other complaints. In ED, pt was found to be profoundly anemic. PMHx: As above PSHx: appendectomy, jaw reduction FamHx: Denied SHx: + tobacco, +etoh socially, denied illicit substances Meds; MAR reviewed Allergies: NKDA Review of Systems - Review of Systems Review of Systems: as per HPI otherwise negative Past Patient History - Infectious Disease Hx of Infectious Diseases: None - Past Medical History & Family History Past Medical History?: No - Past Social History Smoking Status: Light Smoker < 10 Cigarettes Daily - CARDIAC Hx Hypertension: No - PULMONARY Hx Respiratory Disorders: No - NEUROLOGICAL Hx Seizures: No - HEENT Hx HEENT Problems: No - RENAL Hx Chronic Kidney Disease: No - ENDOCRINE/METABOLIC Hx Endocrine Disorders: No - HEMATOLOGICAL/ONCOLOGICAL Hx Blood Transfusions: Yes Hx Blood Transfusion Reaction: No - INTEGUMENTARY Hx Dermatological Problems: No - MUSCULOSKELETAL/RHEUMATOLOGICAL Hx Falls: Yes - GASTROINTESTINAL Hx Gastrointestinal Disorders: No - GENITOURINARY/GYNECOLOGICAL Hx Sexually Transmitted Disorders: No - PSYCHIATRIC Hx Anxiety: Yes Hx Bipolar Disorder: Yes Hx Depression: Yes Hx Schizophrenia: Yes - SURGICAL HISTORY Hx Surgeries: Yes (REPAIR FX OF RIGHT ORBIT; APPENDECTOMY; FX JAW S/P CLOSED REDUCTION ) - ANESTHESIA Hx Anesthesia Reactions: No Hx Malignant Hyperthermia: No Meds Allergies/Adverse Reactions: Allergies Allergy/AdvReac Type Severity Reaction Status Date / Time No Known Allergies Allergy Verified 01/29/18 03:35 - Medications Medications: Current Medications Acetaminophen (Tylenol 325mg Tab) 650 mg PO Q6H PRN PRN Reason: Fever >100.4 F Benztropine Mesylate (Cogentin) 1 mg PO DAILY [facility] Last Admin: 02/01/18 09:32 Dose: 1 mg Cyanocobalamin (Vitamin B12 1000 Mcg Tab) 1,000 mcg PO DAILY [facility] Last Admin: 02/01/18 09:32 Dose: 1,000 mcg Famotidine (Pepcid) 40 mg PO HS [facility] Last Admin: 02/01/18 21:36 Dose: 40 mg Ondansetron HCl (Zofran Inj) 4 mg IVP Q6H PRN PRN Reason: Nausea/Vomiting Risperidone (Risperdal Tab) 2 mg PO BID [facility] PRN Reason: Protocol Last Admin: 02/01/18 18:28 Dose: 2 mg Physical Exam - Constitutional Appears: No Acute Distress - Head Exam Head Exam: ATRAUMATIC, NORMAL INSPECTION, NORMOCEPHALIC - Eye Exam Eye Exam: EOMI, Normal appearance, PERRL Pupil Exam: NORMAL ACCOMODATION, PERRL - ENT Exam ENT Exam: Mucous Membranes Moist, Normal Exam - Neck Exam Neck exam: Positive for: Normal Inspection - Respiratory Exam Respiratory Exam: Clear to Auscultation Bilateral, NORMAL BREATHING PATTERN - Cardiovascular Exam Cardiovascular Exam: REGULAR RHYTHM, +S1, +S2 - GI/Abdominal Exam GI & Abdominal Exam: Normal Bowel Sounds, Soft. absent: Tenderness - Back Exam Back exam: NORMAL INSPECTION - Neurological Exam Neurological exam: Alert, CN II-XII Intact, Normal Gait, Oriented x3, Reflexes Normal - Psychiatric Exam Psychiatric exam: Normal Affect, Normal Mood - Skin Skin Exam: Dry, Intact, Normal Color, Warm Results - Vital Signs Recent Vital Signs: Last Vital Signs Temp 98.1 F 02/02/18 07:35 Pulse 51 L 02/02/18 07:35 Resp 20 02/02/18 07:35 BP 108/59 L 02/02/18 07:35 Pulse Ox 99 02/02/18 07:35 - Labs Result Diagrams: 02/02/18 06:15 02/02/18 06:15 Labs: Laboratory Results - last 24 hr 01/31/18 02/02/18 02/02/18 06:30 06:15 06:15 Hgb 11.3 L Hct 38.0 L Sodium 140 Potassium 4.4 Chloride 105 Carbon Dioxide 23 Anion Gap 17 BUN 12 Creatinine 0.8 Est GFR ( Amer) > 60 Est GFR (Non-Af Amer) > 60 Random Glucose 87 Calcium 9.6 Anti-Parietal Cell Ab Negative Assessment & Plan - Assessment and Plan (Free Text) Assessment: profound anemia schizoaffective disorder anxiety hepatitis Plan: Transfuse hgb of 3.3, 8 total units, stable currently EGD planned high dose ppi eventual colonoscopy diet as tolerated, npo prior to colonoscopy
[2018-02-02] MEDS ORDERED: Sodium Chloride 0.9% 1,000 ML IV SCH (13:45)
[2018-02-02] MEDS ORDERED: Propofol 10 mg/ml Inj (20 ML) ONE ×2 (13:46→14:03)
--- NOTE | 2018-02-02 14:23 | PN ---
DATE: 02/02/2018 SUBJECTIVE: This 37-year-old male was examined at the bedside and this case was reviewed in detail with him and his nurse, Deuce Dumont, registered nurse present. The patient is being readied for colonoscopy. He completed an endoscopy that was yesterday with Dr. Louise Butcher that was consistent with gastric ulcers. The patient is being followed by Dr. Andrew Vasques from Psychiatry because of chronic paranoid schizophrenia. He does take his Risperdal and Cogentin and remains calm. PHYSICAL EXAMINATION: VITAL SIGNS: Temperature is 98.1, respirations 20, pulse 51 and blood pressure 108/59 with a pulse ox of 99% on room air. HEENT: Head normocephalic, atraumatic. Eyes: No icterus. Ears: Clear. Throat: Noninjected. NECK: Supple. HEART: Regular S1, S2. LUNGS: Clear. ABDOMEN: Soft. EXTREMITIES: No edema. SKIN: Without rash. NEUROLOGICAL: Intact. PSYCHOLOGICAL: Alert and calm. VASCULAR: Legs warm to touch. LABORATORY DATA: Hemoglobin 11.3, hematocrit 38.0. Sodium 140, K 4.4, chloride 105, bicarb 23, BUN 12, creatinine 0.8, random blood sugar 87. B12 level 996. Homocysteine 10.7, normal. All thyroid function testing was normal including T4 6.8, T3 of 1.41, TSH 1.45, ferritin level low at 1.9. Antiparietal cell antibody negative. IMPRESSION: A 37-year-old male admitted with severe iron-deficiency anemia, who required blood cell transfusion and now is being readied for colonoscopy and was found to have gastric ulcers on upper endoscopy. PLAN: The plan will be to continue Cogentin 1 mg p.o. daily, Risperdal 2 mg p.o. b.i.d. He continues on 40 mg of Pepcid at bedtime, vitamin B12 of 1000 mcg p.o. daily and will need ferrous gluconate 324 mg p.o. t.i.d. upon discharge. I have discussed with the patient and nurse, Deuce Dumont to clarify if the patient is to be discharged with Dr. Louise Butcher, what H2 sedrick and dose he wants and what duration and for him to outline followup regarding his gastric ulcer findings on endoscopy. Also, the patient will need to have psychotropic medication written until he gets back to his psychiatrist as an outpatient and also social service is arranging for him to return to his [facility] where he lived previously. The patient was also advised that he will need to take [id number] vitamin B12 of 1000 mcg p.o. daily along with ferrous gluconate 324 mg p.o. t.i.d. and to have his blood work monitored as an outpatient when he returns to his physician in [place], [place]. Hopefully, he will be compliant with the above recommendations and greater than 35 minutes was spent in the care and management, review of labs, medication and orders with his nurse present at the bedside. All questions were answered. Genia Pang MD MTDD
[2018-02-02 16:09] LABS: HEPATITIS B SURFACE AG Negative (NEGATIVE)
[2018-02-02 16:18] LABS: HEPATITIS A IGM NEGATIVE (NEGATIVE); HEPATITIS B CORE AB NEGATIVE (NEGATIVE)
[2018-02-02 16:26] LABS: HEPATITIS C ANTIBODY NEGATIVE (NEGATIVE)
--- NOTE | 2018-02-03 02:30 | PN ---
DATE: SUBJECTIVE: The patient is a 37-year-old white male with a schizoaffective disorder. His chart was reviewed and case discussed with Dr. Butcher. A medical/psychiatric problem is moving because the patient has been found to have a large gastrointestinal tumor. His social supports and medical supportive network could be further evaluated. He has been under the recent care of Dr. Cruz; I believe he has recently retired. He had also been treated at the [facility]. His psychiatric history requiring inpatient care started about 3 to 4 years ago at [facility] at which time he had made a suicide attempt. The patient, at the time of my present interview with him, seems unaware of the seriousness of his condition. He is flat in affect, without overt psychotic ideation or without overt mood disturbance. He remains on Cogentin 1 mg daily and Risperdal 2 mg b.i.d. Blood pressure 111/66, pulse 60, temperature 98.4, respiratory rate 20. Hemoglobin today has been 11.3 and hematocrit 38.0, certainly improvement from the severe anemia noted on 01/29/2018 (5.5/19.7). Will get social work involved with regard to the preparation for subsequent health decision making, physical and psychiatric care. Andrew Vasques MD/ PhD
[2018-02-03] MEDS ORDERED: Barium Sulfate Susp 2.1% w/v, 2.0% w/w 450 mL Bottle PO ONE (07:33)
--- NOTE | 2018-02-03 13:01 | CT ---
PROCEDURE: CT abdomen/ pelvis triple phase liver protocol HISTORY: anemia/colonic mass. R/O cancer. Liver protocol COMPARISON: None. TECHNIQUE: Axial images of the abdomen were obtained in the pre contrast, hepatic arterial and portal venous phases of enhancement. Coronal and sagittal reformats were generated. Contrast dose: 150 mL Omnipaque 350 1104.56 Radiation dose: Total exam DLP = 1104.56 mGy-cm. This CT exam was performed using one or more of the following dose reduction techniques: Automated exposure control, adjustment of the mA and/or kV according to patient size, and/or use of iterative reconstruction technique. FINDINGS: LOWER THORAX: Densely calcified 10 mm pleural-based nodule at extreme posterior left lung base. Nonspecific. Possibly granulomatous. LIVER: Normal size, contour and attenuation. Nonspecific 10 mm low-attenuation mass in the superior right hepatic lobe. The mass does not demonstrate enhancement. Possible cyst. No other hepatic mass identified. No abnormal arterial phase enhancement appreciated. Smooth contour. Normal attenuation. No biliary dilatation. GALLBLADDER AND BILE DUCTS: Gallbladder contracted. No calcified gallstones identified. No mural thickening or pericholecystic fluid. PANCREAS: Unremarkable. No gross lesion or ductal dilatation. SPLEEN: Minimal splenomegaly. The spleen measures approximately 13 cm in greatest dimension. No focal mass. ADRENALS: Unremarkable. No mass. KIDNEYS AND URETERS: Unremarkable. No hydronephrosis. No solid mass. VASCULATURE: Unremarkable. No aortic aneurysm. BOWEL: Questionable focal mural thickening of mid rectum, versus focal lack of distension. Correlate with colonoscopic findings. No other abnormal bowel loops identified. No bowel obstruction. APPENDIX: Normal appendixGo not visualized. No secondary findings of concern. . PERITONEUM: Unremarkable. No free fluid. No free air. LYMPH NODES: Unremarkable. No enlarged lymph nodes. BLADDER: Unremarkable. REPRODUCTIVE: Unremarkable prostate BONES: No acute fracture. OTHER FINDINGS: None. IMPRESSION: Nonspecific 10 mm low-density mass in right hepatic lobe. Possible cyst. Questionable focal mural thickening in the mid rectum. Please correlate with colonoscopic findings. Minimal splenomegaly. No additional abnormality identified.
--- NOTE | 2018-02-03 13:49 | PN ---
DATE: 02/03/2018. SUBJECTIVE: This 37-year-old male was examined at the bedside and this case was reviewed in detail with himself and nurse, Deuce Alejandre, registered nurse Dr. Louise Butcher from GI and Dr. Andrew Vasques from Psychiatry. The patient was diagnosed with a left descending colon carcinoma on yesterday's colonoscopy. At present, he is awaiting a triple-phase liver protocol CT to further evaluate this colonic mass and to rule out metastatic cancer. I have placed a consultation with Dr. Kem Oliver from Surgery regarding the above findings and at present, the patient was reevaluated by Dr. Vasques who has also counseled the patient regarding the above. PHYSICAL EXAMINATION: VITAL SIGNS: His temperature is 97.9, respirations 20, pulse 65 and blood pressure 101/40 with pulse ox of 97%. HEENT: Head: Normocephalic, atraumatic. Eyes: No icterus. Ears: Clear. Throat: Noninjected. NECK: Supple. HEART: Regular S1, S2. LUNGS: Clear. ABDOMEN: Soft. EXTREMITIES: No edema. SKIN: Without rash. NEUROLOGICAL: Unchanged. PSYCHOLOGICAL: Calm. VASCULAR: Legs warm to touch. LABORATORY DATA: Hemoglobin 11.3, hematocrit 38.0. Sodium 140, K 4.4, chloride 105, bicarb 23, BUN 12, creatinine 0.8, random blood sugar 87. Anti-parietal cell antibody negative. Hepatitis A, B, C serologies are negative. IMPRESSION: A 37-year-old male with colon cancer, gastric ulcers admitted with severe iron-deficiency anemia requiring multiple blood cell transfusions and comorbidities of paranoid schizophrenia. The plan at present as discussed with the patient, nursing, GI and Psychiatry and Hematology/Oncology will be to await surgical evaluation. He continues on heart healthy soft bland diet. He is ordered to have nasal O2 p.r.n. and is awaiting a triple-phase liver protocol CT. He continues on vitamin B12 1000 mcg p.o. daily, Risperdal 2 mg p.o. b.i.d., Cogentin 1 mg p.o. daily, Pepcid 40 mg p.o. at bedtime and ultimate plan will be to assess this patient for surgical intervention and then monitor his postoperative course and set up a social network for care upon discharge. All of the above was explained in detail to the patient, nursing and and discussed with co-consultants. Greater than 35 minutes was spent in the care management, review of labs, medicines and orders for this patient today. All questions were answered. Genia Pang MD MTDSanya
--- NOTE | 2018-02-03 13:52 | CP.PCM.CON ---
History of Present Illness - History of Present Illness History of Present Illness: Surgery consult note for Dr. Oliver Patient is a 37 year old male with a past medical history of schizophrenia and anemia. He presented to the ED with complaints of shortness of breath and weakness. The patient was brought to the ED by an ambulance after he found himself feeling week upon ambulation. In the ED the patient was found to be severely anemic with a Hgb of 3. The patient had an endoscopy procedure following admission and it was found that he has gastric ulcers.The patient also had a colonoscopy done and it was found that he has a mass in distal ascending colon. Surgery was consulted for colonic mass. Denies fevers, chills, nausea, vomiting,melena, hematemesis, hematochezia, abd pain. The patient reports a weight loss of 20 lbs over the last six months. Pt received 8 unites of PRBC and feel better PMH: schizophrenia, anemia PSH: appendectomy, facial surgery for fractured left jaw Family Hx: patient denies any history of cancer in the family Allergies: NKDA Social Hx: patient smokes 1-2 cigarettes a day since he was 19 yrs old, denies alcohol, denies illicit drug use Review of Systems - Review of Systems Review of Systems: See HPI - Constitutional Constitutional: Weight Loss Additional comments: patient reports 20 lb weight loss over the 6 months - Gastrointestinal Gastrointestinal: Constipation Past Patient History - Infectious Disease Hx of Infectious Diseases: None - Past Medical History & Family History Past Medical History?: No - Past Social History Smoking Status: Light Smoker < 10 Cigarettes Daily - CARDIAC Hx Hypertension: No - PULMONARY Hx Respiratory Disorders: No - NEUROLOGICAL Hx Seizures: No - HEENT Hx HEENT Problems: No - RENAL Hx Chronic Kidney Disease: No - ENDOCRINE/METABOLIC Hx Endocrine Disorders: No - HEMATOLOGICAL/ONCOLOGICAL Hx Blood Transfusions: Yes Hx Blood Transfusion Reaction: No - INTEGUMENTARY Hx Dermatological Problems: No - MUSCULOSKELETAL/RHEUMATOLOGICAL Hx Falls: Yes - GASTROINTESTINAL Hx Gastrointestinal Disorders: No - GENITOURINARY/GYNECOLOGICAL Hx Sexually Transmitted Disorders: No - PSYCHIATRIC Hx Anxiety: Yes Hx Bipolar Disorder: Yes Hx Depression: Yes Hx Schizophrenia: Yes - SURGICAL HISTORY Hx Surgeries: Yes (REPAIR FX OF RIGHT ORBIT; APPENDECTOMY; FX JAW S/P CLOSED REDUCTION ) - ANESTHESIA Hx Anesthesia Reactions: No Hx Malignant Hyperthermia: No Meds Allergies/Adverse Reactions: Allergies Allergy/AdvReac Type Severity Reaction Status Date / Time No Known Allergies Allergy Verified 01/29/18 03:35 - Medications Medications: Current Medications Acetaminophen (Tylenol 325mg Tab) 650 mg PO Q6H PRN PRN Reason: Fever >100.4 F Benztropine Mesylate (Cogentin) 1 mg PO DAILY [facility] Last Admin: 02/03/18 09:19 Dose: 1 mg Cyanocobalamin (Vitamin B12 1000 Mcg Tab) 1,000 mcg PO DAILY [facility] Last Admin: 02/03/18 09:19 Dose: 1,000 mcg Famotidine (Pepcid) 40 mg PO HS [facility] Last Admin: 02/02/18 22:01 Dose: 40 mg Ondansetron HCl (Zofran Inj) 4 mg IVP Q6H PRN PRN Reason: Nausea/Vomiting Risperidone (Risperdal Tab) 2 mg PO BID [facility] PRN Reason: Protocol Last Admin: 02/03/18 09:19 Dose: 2 mg Physical Exam - Constitutional Appears: No Acute Distress - Head Exam Head Exam: ATRAUMATIC, NORMAL INSPECTION, NORMOCEPHALIC - Eye Exam Eye Exam: EOMI, Normal appearance - ENT Exam ENT Exam: Mucous Membranes Moist, Normal Exam - Respiratory Exam Respiratory Exam: Clear to Auscultation Bilateral, NORMAL BREATHING PATTERN - Cardiovascular Exam Cardiovascular Exam: REGULAR RHYTHM - GI/Abdominal Exam GI & Abdominal Exam: Normal Bowel Sounds, Soft. absent: Distended, Firm, Guarding, Hernia, Pulsatile Mass, Rigid, Tenderness - Rectal Exam Rectal Exam: NORMAL INSPECTION Additional comments: normal sphincter tone. No rectal mass. no bleeding - Neurological Exam Neurological exam: Alert, CN II-XII Intact, Normal Gait, Oriented x3, Reflexes Normal - Psychiatric Exam Psychiatric exam: Normal Affect, Normal Mood - Skin Skin Exam: Dry, Intact, Normal Color, Warm Results - Vital Signs Recent Vital Signs: Last Vital Signs Temp 97.9 F 02/03/18 07:27 Pulse 65 02/03/18 07:27 Resp 20 02/03/18 07:27 BP 101/40 L 02/03/18 07:27 Pulse Ox 97 02/03/18 07:27 - Labs Result Diagrams: 02/02/18 06:15 02/02/18 06:15 Labs: Laboratory Results - last 24 hr 02/02/18 11:20 Hepatitis A IgM Ab Negative Hep Bs Antigen Negative Hep B Core IgM Ab Negative Hepatitis C Antibody Negative Assessment & Plan - Assessment and Plan (Free Text) Assessment: Patient is a 37 year old male with colon mass and anemia. Plan: Plan on OR on Mon F/u pathology results of biopsy Transfuse pRBCs GI on board hemeonc consulted Monitor CBC DW Dr. Oliver
--- NOTE | 2018-02-03 17:34 | CP.PCM.PN ---
Subjective - Date & Time of Evaluation Date of Evaluation: 02/03/18 Time of Evaluation: 10:00 - Subjective Subjective: Seen and examined at the bedside earlier this morning, chart review. No acute overnight events reported. Patient status post colonoscopy yesterday found to have a descending colon lesion, awaiting to go for CT scan with triple phase. Objective - Vital Signs/Intake and Output Vital Signs (last 24 hours): Temp Pulse Resp BP Pulse Ox 98.1 F 63 18 95/50 L 98 02/03/18 14:00 02/03/18 14:00 02/03/18 14:00 02/03/18 14:00 02/03/18 14:00 Intake and Output: 02/03/18 02/03/18 06:59 18:59 Intake Total 900 Output Total 4 Balance 896 - Medications Medications: Current Medications Acetaminophen (Tylenol 325mg Tab) 650 mg PO Q6H PRN PRN Reason: Fever >100.4 F Benztropine Mesylate (Cogentin) 1 mg PO DAILY [facility] Last Admin: 02/03/18 09:19 Dose: 1 mg Cyanocobalamin (Vitamin B12 1000 Mcg Tab) 1,000 mcg PO DAILY [facility] Last Admin: 02/03/18 09:19 Dose: 1,000 mcg Erythromycin (Erythromycin) 1,000 mg PO ONCE ONE PRN Reason: Protocol Stop: 02/06/18 13:01 Erythromycin (Erythromycin) 1,000 mg PO ONCE ONE PRN Reason: Protocol Stop: 02/06/18 21:01 Famotidine (Pepcid) 40 mg PO [facility] Last Admin: 02/02/18 22:01 Dose: 40 mg Neomycin Sulfate (Neomycin Tab) 1,000 mg PO ONCE ONE Stop: 02/06/18 14:01 Neomycin Sulfate (Neomycin Tab) 1,000 mg PO ONCE ONE Stop: 02/06/18 13:01 Neomycin Sulfate (Neomycin Tab) 1,000 mg PO ONCE ONE Stop: 02/06/18 21:01 Ondansetron HCl (Zofran Inj) 4 mg IVP Q6H PRN PRN Reason: Nausea/Vomiting Risperidone (Risperdal Tab) 2 mg PO BID [facility] PRN Reason: Protocol Last Admin: 02/03/18 09:19 Dose: 2 mg - Labs Labs: 02/02/18 06:15 02/02/18 06:15 PT 12.7 SECONDS (9.4-12.5) H 01/29/18 05:30 INR 1.10 (0.93-1.08) H 01/29/18 05:30 APTT 26.8 Seconds (25.1-36.5) 01/29/18 05:30 - Constitutional Appears: No Acute Distress - Head Exam Head Exam: NORMOCEPHALIC - Eye Exam Eye Exam: Normal appearance. absent: Scleral icterus - ENT Exam ENT Exam: Mucous Membranes Moist - Neck Exam Neck Exam: Normal Inspection - Respiratory Exam Respiratory Exam: NORMAL BREATHING PATTERN. absent: Respiratory Distress - Cardiovascular Exam Cardiovascular Exam: +S1, +S2 - GI/Abdominal Exam GI & Abdominal Exam: Soft, Normal Bowel Sounds. absent: Guarding, Tenderness, Organomegaly, Rebound - Extremities Exam Extremities Exam: Normal Capillary Refill. absent: Calf Tenderness, Pedal Edema - Neurological Exam Neurological Exam: Alert, Awake, Oriented x3 Assessment and Plan - Assessment and Plan (Free Text) Assessment: Assessment: Symptomatic anemia, status post EGD/colon, found to have peptic ulcer disease, ascending colonic lesion Schizoaffective disorder Anxiety Hepatitis C Plan: Monitor H&H and transfuse as necessary Follow-up: Pathology Pending CT scan with triple phase continue high-dose PPI Recommend surgical evaluation diet as tolerated Seen and discussed with Dr. Butcher
--- NOTE | 2018-02-03 21:36 | PCM.PYCHPN ---
Psychiatric Progress Note - Psychiatric Progress Note Patient seen today, length of contact: 25 Patient Chief Complaint: Patient had been admitted to the ICU in a weakened condition after being significantly anemic. He has a psychiatric history of an apparent schizoaffective disorder. Initial psychiatric consultation of Dr. michaels twice a day and reviewed. Chart reviewed. Patient interviewed. The patient has been under the care of his private psychiatrist, Dr. finn STEWART for none defined period of time. Indicates that [facility] not a [facility]. Patient has been hospitalized approximately 5 times. Presently does not appear to be in any acute distress. Has long here and bearded. He also has multiple tattoos. Patient indicates that he is a participant in the [facility] program and attends an IOP 2 hours a day 2 days a week. Lives also in a assisted living situation. Does not presently appear to be in any acute distress. Not overtly homicidal suicidal or psychotic. Problems Identified/Issues Discussed: As noted above. Patient has a psychiatric history of approximately 5-6 years duration ( according to the patient). His maintained on [facility] by his psychiatrist Dr. suarez On February 03 discussed with patient with patient who is recently diagnosed colon cancer. Patient appears appropriate and concerned. Discussed with him the probable need for postsurgical care greater than is presently available to him has no family around. Does have siblings in the area but is not speaking to them. That is homeless and living in a homeless halfway. I think the patient will need to be in some sort of a convalescent or supervised or assisted living situation during the recovery phase of his surgery for his abdominal tumor. The patient is surprisingly accepting and appropriately dealing with this new diagnosis. Medical Problems: Patient admitted with significant anemia. His hemoglobin and hematocrit have increased significantly since admission. Laboratory results reviewed. Diagnostic Results: Hemoglobin now 11.1 hematocrit 36.3. This is a significant improvement from his time of admission. 0. A urine drug screen was negative. DSM 5 Symptoms Update: Alert, oriented to 3 spheres, quiet as is his nature. Not overtly homicidal suicidal or psychotic. Reviewed with patient the probable attempt that we will make to facilitate whatever social work services he needs it would regarding his dealing with the any legal problems he may be having A, and for supervised/assisted recuperative services. Medication Change: No Medical Record Reviewed: Yes Mental Status Examination - Cognitive Function Orientation: Person, Place, Situation, Time Memory: Intact Attention: WNL Concentration: WNL Association: WNL Fund of Knowledge: [facility] Decription of patient's judgement and insights: Aware of reasons why he is presently hospitalized. Presents a reasonably concise psychiatric history. - Mood Mood: Neutral - Affect Affect: Blunted - Speech Speech: Appropriate, Soft - Formal Thought Process Formal Thought Process: No Impairment - Suicidal Ideation Suicidal Ideation: No - Homicidal Ideation Homicidal Ideation: No Goal/Treatment Plan - Goal/Treatment Plan Progress Toward Problem(s) and Goals/Treatment Plan: Will have social work contact his rash worker with regard to informing them of his present status and preparation for his ultimate discharge and return to their IOP program. We'll redouble efforts to get social work involved in case management feeling with his postsurgical recovery. A. Otherwise he will be going to a halfway living by himself and not able to care for himself.
--- NOTE | 2018-02-04 04:45 | CON ---
DATE: Byron Garnica is seen on the floor at the request of Dr. Pang. HISTORY OF PRESENT ILLNESS: This is a healthy 37-year-old who felt weak, tired and short of breath when he came into the hospital. Hemoglobin was noted to be markedly low at 5, with indices that were low at MCV of 60, platelet count of normal. The patient received a total of 8 units of packed cells to bring it up to normal. Colonoscopy was done today that showed a large mass in the ascending colon. Biopsies are pending. Reviewed and examined the patient, never been operated. ALLERGIES: NO ALLERGIES. MEDICATIONS: No medications, except for his I believe the psychiatric medication. PHYSICAL EXAMINATION: The abdomen is soft. CAT scan of the liver is unremarkable. PLAN: We will plan laparoscopic right hemicolectomy pending pathology, thereafter. This will probably done on Wednesday, although the timing is unclear at this time. Bowel prep is started. Kem Oliver MD
--- NOTE | 2018-02-04 09:43 | CP.PCM.PN ---
Subjective - Date & Time of Evaluation Date of Evaluation: 02/04/18 Time of Evaluation: 09:39 - Subjective Subjective: Surgery: Dr. Oliver Patient doing well today. Denies n/v/f/c. Denies bloody bowel movements. Denies SOB or chest pain. Objective - Vital Signs/Intake and Output Vital Signs (last 24 hours): Temp Pulse Resp BP Pulse Ox 97.8 F 52 L 20 104/60 97 02/04/18 07:55 02/04/18 07:55 02/04/18 07:55 02/04/18 07:55 02/04/18 07:55 Intake and Output: 02/04/18 02/04/18 06:59 18:59 Intake Total 1140 Balance 1140 - Medications Medications: Current Medications Acetaminophen (Tylenol 325mg Tab) 650 mg PO Q6H PRN PRN Reason: Fever >100.4 F Benztropine Mesylate (Cogentin) 1 mg PO DAILY [facility] Last Admin: 02/03/18 09:19 Dose: 1 mg Cyanocobalamin (Vitamin B12 1000 Mcg Tab) 1,000 mcg PO DAILY [facility] Last Admin: 02/03/18 09:19 Dose: 1,000 mcg Erythromycin (Erythromycin) 1,000 mg PO ONCE ONE PRN Reason: Protocol Stop: 02/06/18 13:01 Erythromycin (Erythromycin) 1,000 mg PO ONCE ONE PRN Reason: Protocol Stop: 02/06/18 21:01 Famotidine (Pepcid) 40 mg PO HS [facility] Last Admin: 02/03/18 22:37 Dose: 40 mg Neomycin Sulfate (Neomycin Tab) 1,000 mg PO ONCE ONE Stop: 02/06/18 14:01 Neomycin Sulfate (Neomycin Tab) 1,000 mg PO ONCE ONE Stop: 02/06/18 13:01 Neomycin Sulfate (Neomycin Tab) 1,000 mg PO ONCE ONE Stop: 02/06/18 21:01 Ondansetron HCl (Zofran Inj) 4 mg IVP Q6H PRN PRN Reason: Nausea/Vomiting Risperidone (Risperdal Tab) 2 mg PO BID [facility] PRN Reason: Protocol Last Admin: 02/03/18 17:33 Dose: 2 mg - Labs Labs: 02/02/18 06:15 02/02/18 06:15 PT 12.7 SECONDS (9.4-12.5) H 01/29/18 05:30 INR 1.10 (0.93-1.08) H 01/29/18 05:30 APTT 26.8 Seconds (25.1-36.5) 01/29/18 05:30 - Constitutional Appears: Non-toxic, No Acute Distress - Head Exam Head Exam: ATRAUMATIC, NORMOCEPHALIC - Eye Exam Eye Exam: EOMI, Normal appearance - ENT Exam ENT Exam: Mucous Membranes Moist - Respiratory Exam Respiratory Exam: NORMAL BREATHING PATTERN. absent: Respiratory Distress - Cardiovascular Exam Cardiovascular Exam: REGULAR RHYTHM. absent: Tachycardia - GI/Abdominal Exam GI & Abdominal Exam: Soft. absent: Distended, Tenderness - Extremities Exam Extremities Exam: Normal Inspection. absent: Calf Tenderness - Neurological Exam Neurological Exam: Alert, Awake, Oriented x3 - Skin Skin Exam: Dry, Normal Color, Warm Assessment and Plan - Assessment and Plan (Free Text) Assessment: 37 y/o male with right sided colon mass s/p scope with biopsy Plan: -plan for surgical resection on Wednesday -can cont reg diet for now -CLD on wednesday with Golytely bowel prep -cont bowel prep on Wednesday and NPO PMN -will start oral ABX, Neomycin and Erythromycin on Wednesday preoperatively -f/u pathology results -medical management per primary -further recs per Dr. Benito Lockhart PGY3
[2018-02-04 10:46] LABS: HEMOGLOBIN A 97.7 Percent (>96.0); HEMOGLOBIN A2 1.3 Percent (1.8-3.5)
--- NOTE | 2018-02-04 11:30 | CP.PCM.PN ---
Subjective - Date & Time of Evaluation Date of Evaluation: 02/04/18 Time of Evaluation: 10:10 - Subjective Subjective: Seen and examined at the bedside this morning, chart review. Patient denies nausea, vomiting, or abdominal pain. Reports having BMs but reports they are loose. No reports of melena or bright red blood per rectum. Tolerating oral intake. He went for liver CT scan yesterday, the report was reviewed, showed 10 mm [id number] mass in the right hepatic lobe probable cyst, questionable mural thickening in the mid rectum, minimal splenomegaly, no enlarged lymph nodes, and 2 mm nonobstructing calculi in the left renal pole. Patient was evaluated by surgical team and plans for right hemicolectomy on Wednesday. Patient is aware of plan. Objective - Vital Signs/Intake and Output Vital Signs (last 24 hours): Temp Pulse Resp BP Pulse Ox 97.8 F 52 L 20 104/60 97 02/04/18 07:55 02/04/18 07:55 02/04/18 07:55 02/04/18 07:55 02/04/18 07:55 Intake and Output: 02/04/18 02/04/18 06:59 18:59 Intake Total 1140 Balance 1140 - Medications Medications: Current Medications Acetaminophen (Tylenol 325mg Tab) 650 mg PO Q6H PRN PRN Reason: Fever >100.4 F Benztropine Mesylate (Cogentin) 1 mg PO DAILY [facility] Last Admin: 02/04/18 10:40 Dose: 1 mg Cyanocobalamin (Vitamin B12 1000 Mcg Tab) 1,000 mcg PO DAILY [facility] Last Admin: 02/04/18 10:40 Dose: 1,000 mcg Erythromycin (Erythromycin) 1,000 mg PO ONCE ONE PRN Reason: Protocol Stop: 02/06/18 13:01 Erythromycin (Erythromycin) 1,000 mg PO ONCE ONE PRN Reason: Protocol Stop: 02/06/18 21:01 Famotidine (Pepcid) 40 mg PO HS [facility] Last Admin: 02/03/18 22:37 Dose: 40 mg Neomycin Sulfate (Neomycin Tab) 1,000 mg PO ONCE ONE Stop: 02/06/18 14:01 Neomycin Sulfate (Neomycin Tab) 1,000 mg PO ONCE ONE Stop: 02/06/18 13:01 Neomycin Sulfate (Neomycin Tab) 1,000 mg PO ONCE ONE Stop: 02/06/18 21:01 Ondansetron HCl (Zofran Inj) 4 mg IVP Q6H PRN PRN Reason: Nausea/Vomiting Polyethylene Glycol/Electrolytes (Golytely) 4,000 ml PO ONCE ONE Stop: 02/05/18 08:01 Risperidone (Risperdal Tab) 2 mg PO BID [facility] PRN Reason: Protocol Last Admin: 02/04/18 10:40 Dose: 2 mg - Labs Labs: 02/02/18 06:15 02/02/18 06:15 PT 12.7 SECONDS (9.4-12.5) H 01/29/18 05:30 INR 1.10 (0.93-1.08) H 01/29/18 05:30 APTT 26.8 Seconds (25.1-36.5) 01/29/18 05:30 - Constitutional Appears: No Acute Distress - Head Exam Head Exam: NORMOCEPHALIC - Eye Exam Eye Exam: Normal appearance. absent: Scleral icterus - ENT Exam ENT Exam: Mucous Membranes Moist - Neck Exam Neck Exam: Normal Inspection - Respiratory Exam Respiratory Exam: NORMAL BREATHING PATTERN. absent: Respiratory Distress - Cardiovascular Exam Cardiovascular Exam: +S1, +S2 - GI/Abdominal Exam GI & Abdominal Exam: Soft, Normal Bowel Sounds. absent: Guarding, Tenderness, Organomegaly, Rebound - Extremities Exam Extremities Exam: Normal Capillary Refill. absent: Calf Tenderness, Pedal Edema - Neurological Exam Neurological Exam: Alert, Awake, Oriented x3 - Skin Skin Exam: Dry, Warm Assessment and Plan - Assessment and Plan (Free Text) Assessment: Assessment: Symptomatic anemia, status post EGD/colon, found to have peptic ulcer disease, ascending colonic lesion, s/p ct scan report rectal was thickening NOn obstructing 2mm calculi 10 mm non low density mass right hepatic lobe, possible cyst Schizoaffective disorder Anxiety Hepatitis C?, hepatitis panel negative Plan: Monitor H&H and transfuse as necessary Follow-up Pathology continue high-dose PPI diet as tolerated surgical team plan for hemicolectomy Wednesday, prep as per surgery. Seen and discussed with Dr. Butcher
--- NOTE | 2018-02-04 16:02 | PN ---
DATE: 02/04/2018 SUBJECTIVE: This 37-year-old male remains hospitalized. He was noted to have a colon cancer on recent colonoscopy and is being readied for colon cancer surgery with Dr. Kem Oliver on 02/07/2018. The patient at present remains weak and deconditioned and was admitted with shortness of breath and fatigue in the setting of advanced iron-deficiency anemia that required approximately 8 units of packed red blood cell transfusion. At present, he remains calm. He is being followed by Dr. Andrew Vasques from Psychiatry and denies any fever, chills, chest pain or shortness of breath. 2-D echocardiogram was reviewed and shows normal wall motion and no significant valvular pathology. PHYSICAL EXAMINATION: VITAL SIGNS: Temperature is 97.8, respirations 20, pulse 52 and blood pressure 104/60 with a pulse ox of 97% on room air. HEENT: Head normocephalic, atraumatic. Eyes: No icterus. Ears: Clear. Throat: Noninjected. NECK: Supple. HEART: Regular S1, S2. LUNGS: Clear. ABDOMEN: Soft. EXTREMITIES: No edema. SKIN: Without rash. NEUROLOGICAL: Intact. PSYCHOLOGICAL: Alert and calm. VASCULAR: Legs warm to touch. NEURO: Intact. LABORATORY DATA: Hemoglobin 11.3, hematocrit 38.0. PT/INR 1.10. Sodium 140, K 4.4, chloride 105, bicarb 23, BUN 12, creatinine 0.8, random blood sugar 87. Hepatitis A, B, C serology negative. Antiparietal cell antibody negative. IMPRESSION: A 37-year-old male admitted with shortness of breath, fatigue, weakness in the setting of advanced iron-deficiency anemia that required packed red blood cell transfusion and that on endoscopy, he was noted to have gastric ulcers and on colonoscopy colon cancer. PLAN: The plan as discussed with the patient and nursing including nurse, Jackie Rahman, registered nurse will be to continue orders of Cogentin 1 mg p.o. daily, GoLYTELY to start on 02/05/2018; Pepcid 40 mg p.o. at bedtime, Risperdal 2 mg p.o. b.i.d., vitamin B12 of 1000 mcg p.o. daily, 2 L of nasal O2 p.r.n. Heart healthy diet at present and a clear liquid diet to start on 02/06/2018. The patient will be monitored by oncology and GI perioperatively and all of the above was reviewed in detail with the patient, co-consultants and nursing. Greater than 35 minutes was spent in the care and review of orders, labs, medication and testings for this patient today. All questions were answered. Genia Pang MD MTDD
--- NOTE | 2018-02-04 17:04 | CP.PCM.CON ---
History of Present Illness - History of Present Illness History of Present Illness: 37 yo man readmitted with weakness, found to have severe anemia, work up showing right colon mass, scheduled for surgery, path still pending. The patient is aware of the possibility of malignancy. Denies any family history that he is aware of. Past Patient History - Infectious Disease Hx of Infectious Diseases: None - Past Medical History & Family History Past Medical History?: No - Past Social History Smoking Status: Light Smoker < 10 Cigarettes Daily - CARDIAC Hx Hypertension: No - PULMONARY Hx Respiratory Disorders: No - NEUROLOGICAL Hx Seizures: No - HEENT Hx HEENT Problems: No - RENAL Hx Chronic Kidney Disease: No - ENDOCRINE/METABOLIC Hx Endocrine Disorders: No - HEMATOLOGICAL/ONCOLOGICAL Hx Blood Transfusions: Yes Hx Blood Transfusion Reaction: No - INTEGUMENTARY Hx Dermatological Problems: No - MUSCULOSKELETAL/RHEUMATOLOGICAL Hx Falls: Yes - GASTROINTESTINAL Hx Gastrointestinal Disorders: No - GENITOURINARY/GYNECOLOGICAL Hx Sexually Transmitted Disorders: No - PSYCHIATRIC Hx Anxiety: Yes Hx Bipolar Disorder: Yes Hx Depression: Yes Hx Schizophrenia: Yes - SURGICAL HISTORY Hx Surgeries: Yes (REPAIR FX OF RIGHT ORBIT; APPENDECTOMY; FX JAW S/P CLOSED REDUCTION ) - ANESTHESIA Hx Anesthesia Reactions: No Hx Malignant Hyperthermia: No Meds Allergies/Adverse Reactions: Allergies Allergy/AdvReac Type Severity Reaction Status Date / Time No Known Allergies Allergy Verified 01/29/18 03:35 - Medications Medications: Current Medications Acetaminophen (Tylenol 325mg Tab) 650 mg PO Q6H PRN PRN Reason: Fever >100.4 F Benztropine Mesylate (Cogentin) 1 mg PO DAILY [facility] Last Admin: 02/04/18 10:40 Dose: 1 mg Cyanocobalamin (Vitamin B12 1000 Mcg Tab) 1,000 mcg PO DAILY [facility] Last Admin: 02/04/18 10:40 Dose: 1,000 mcg Erythromycin (Erythromycin) 1,000 mg PO ONCE ONE PRN Reason: Protocol Stop: 02/06/18 13:01 Erythromycin (Erythromycin) 1,000 mg PO ONCE ONE PRN Reason: Protocol Stop: 02/06/18 21:01 Famotidine (Pepcid) 40 mg PO HS [facility] Last Admin: 02/03/18 22:37 Dose: 40 mg Neomycin Sulfate (Neomycin Tab) 1,000 mg PO ONCE ONE Stop: 02/06/18 14:01 Neomycin Sulfate (Neomycin Tab) 1,000 mg PO ONCE ONE Stop: 02/06/18 13:01 Neomycin Sulfate (Neomycin Tab) 1,000 mg PO ONCE ONE Stop: 02/06/18 21:01 Ondansetron HCl (Zofran Inj) 4 mg IVP Q6H PRN PRN Reason: Nausea/Vomiting Polyethylene Glycol/Electrolytes (Golytely) 4,000 ml PO ONCE ONE Stop: 02/05/18 08:01 Risperidone (Risperdal Tab) 2 mg PO BID [facility] PRN Reason: Protocol Last Admin: 02/04/18 10:40 Dose: 2 mg Results - Vital Signs Recent Vital Signs: Last Vital Signs Temp 97.7 F 02/04/18 14:00 Pulse 57 L 02/04/18 14:00 Resp 20 02/04/18 14:00 BP 139/60 02/04/18 14:00 Pulse Ox 97 02/04/18 14:00 - Labs Result Diagrams: 02/02/18 06:15 02/02/18 06:15 Assessment & Plan (1) Colonic mass Assessment and Plan: 37 yo man with ascending colon mass, seemingly localized, found as part of work up for severe anemia, scheduled for surgery, testing for microsatellite instability pending, patient not aware of any family history. Briefly discussed with patient regarding genetic testing for Cuello syndrome and staging of disease, if pathology shows adenocarcinoma. Will follow, check CEA level once path available Status: Acute
[2018-02-05] MEDS ORDERED: Peg-Electrolyte Oral Soln 4L (Golytely) PO ONE (08:00)
--- NOTE | 2018-02-05 08:31 | CP.PCM.PN ---
Subjective - Date & Time of Evaluation Date of Evaluation: 02/05/18 Time of Evaluation: 08:26 - Subjective Subjective: Surgery: Dr. Oliver Pt seen and examined. Resting comfortably in bed. No acute events overnight. No complaints. Objective - Vital Signs/Intake and Output Vital Signs (last 24 hours): Temp Pulse Resp BP Pulse Ox 98 F 52 L 20 99/56 L 96 02/04/18 23:08 02/04/18 23:08 02/04/18 23:08 02/04/18 23:08 02/04/18 23:08 Intake and Output: 02/05/18 02/05/18 06:59 18:59 Intake Total 960 Balance 960 - Medications Medications: Current Medications Acetaminophen (Tylenol 325mg Tab) 650 mg PO Q6H PRN PRN Reason: Fever >100.4 F Benztropine Mesylate (Cogentin) 1 mg PO DAILY [facility] Last Admin: 02/04/18 10:40 Dose: 1 mg Cyanocobalamin (Vitamin B12 1000 Mcg Tab) 1,000 mcg PO DAILY [facility] Last Admin: 02/04/18 10:40 Dose: 1,000 mcg Erythromycin (Erythromycin) 1,000 mg PO ONCE ONE PRN Reason: Protocol Stop: 02/06/18 13:01 Erythromycin (Erythromycin) 1,000 mg PO ONCE ONE PRN Reason: Protocol Stop: 02/06/18 21:01 Famotidine (Pepcid) 40 mg PO HS [facility] Last Admin: 02/04/18 22:10 Dose: 40 mg Neomycin Sulfate (Neomycin Tab) 1,000 mg PO ONCE ONE Stop: 02/06/18 14:01 Neomycin Sulfate (Neomycin Tab) 1,000 mg PO ONCE ONE Stop: 02/06/18 13:01 Neomycin Sulfate (Neomycin Tab) 1,000 mg PO ONCE ONE Stop: 02/06/18 21:01 Ondansetron HCl (Zofran Inj) 4 mg IVP Q6H PRN PRN Reason: Nausea/Vomiting Risperidone (Risperdal Tab) 2 mg PO BID [facility] PRN Reason: Protocol Last Admin: 02/04/18 17:04 Dose: 2 mg - Labs Labs: 02/02/18 06:15 02/02/18 06:15 PT 12.7 SECONDS (9.4-12.5) H 01/29/18 05:30 INR 1.10 (0.93-1.08) H 01/29/18 05:30 APTT 26.8 Seconds (25.1-36.5) 01/29/18 05:30 - Constitutional Appears: Non-toxic, No Acute Distress - Head Exam Head Exam: ATRAUMATIC, NORMOCEPHALIC - Eye Exam Eye Exam: EOMI - ENT Exam ENT Exam: Mucous Membranes Moist - Neck Exam Neck Exam: Full ROM - Respiratory Exam Respiratory Exam: NORMAL BREATHING PATTERN. absent: Accessory Muscle Use, Respiratory Distress - GI/Abdominal Exam GI & Abdominal Exam: Soft. absent: Distended, Firm, Guarding, Rigid, Tenderness , Rebound - Extremities Exam Extremities Exam: absent: Calf Tenderness, Pedal Edema - Neurological Exam Neurological Exam: Alert, Awake, Oriented x3 - Psychiatric Exam Psychiatric exam: Normal Affect, Normal Mood - Skin Skin Exam: Dry, Intact Assessment and Plan - Assessment and Plan (Free Text) Assessment: 37M w. R side colon mass Plan: -f/u AM labs -Plan on OR wednesday for colectomy -CLD starting tomorrow -Bowel prep to start tomorrow, Golytely / neomycin / erythromycin -d/w attending Zemaitis PGY3
[2018-02-05 08:37] LABS: MEAN CELL VOLUME 73.2 fl (80.0-105.0); MEAN CORPUSCULAR HGB CONC 30.1 g/dl (31.0-37.0); PLATELET COUNT 340 10^3/uL (120.0-450.0); RBC 5.45 10^6/uL (3.5-6.1); WHITE BLOOD COUNT 6.8 10^3/ul (4.5-11.0)
[2018-02-05 09:18] LABS: BLOOD UREA NITROGEN 19 mg/dL (7-21); CALCIUM 10.1 mg/dL (8.4-10.5); GFR AFRICAN-AMERICAN > 60; GFR NON-AFRICAN AMERICAN > 60
--- NOTE | 2018-02-06 | PN ---
DATE: 02/05/2018 SUBJECTIVE: This patient was seen and evaluated earlier today. The patient is comfortable. No complaints of any abdominal pain. PHYSICAL EXAMINATION: VITAL SIGNS: Temperature is 97.8, pulse is 60, blood pressure 128/66, respirations 20, O2 saturation 97%. HEENT: Atraumatic, anicteric. NECK: Supple. HEART: S1 and S2 heard. LUNGS: Bilateral air entry present. ABDOMEN: Soft. There is no mass palpable. EXTREMITIES: No edema. No cyanosis. LABORATORY DATA: Hemoglobin 12, hematocrit 39.9, WBC 6.8, platelets 340. The patient has a B12 deficiency. Serum B12 was only 214. The duodenal biopsy shows villous blunting. There is a focal increase in intraepithelial lymphocytes noticed. IMPRESSION: 1. History of iron-deficiency anemia. 2. B12 deficiency. 3. Duodenal biopsy showed a focal increase in CD3 lymphocytes. Rule out celiac disease. 4. Gastric ulcers. 5. Helicobacter pylori positive gastritis. 6. Ulcerated mass lesion in the right colon, in the distal ascending colon. RECOMMENDATIONS: 1. Elective treatment for H. pylori. 2. Request for a celiac disease profile. 3. Abnormal CAT scan showing some focal thickening in the rectum, which was not visualized during the colonoscopy. We will discuss with the surgical team regarding the sigmoidoscopic examination just before the scheduled colon resection. Thank you very much for allowing us to participate in the care of the patient. Louise Butcher MD [facility]
--- NOTE | 2018-02-06 07:29 | CP.PCM.PN ---
Subjective - Date & Time of Evaluation Date of Evaluation: 02/06/18 Time of Evaluation: 07:26 - Subjective Subjective: Surgery: Dr. Oliver Pt seen and examined. Resting comfortably in bed. Pain controlled. No complaints. Objective - Vital Signs/Intake and Output Vital Signs (last 24 hours): Temp Pulse Resp BP Pulse Ox 97.8 F 80 18 108/60 96 02/05/18 22:00 02/05/18 22:00 02/05/18 22:00 02/05/18 22:00 02/05/18 22:00 Intake and Output: 02/06/18 02/06/18 06:59 18:59 Intake Total 900 Balance 900 - Medications Medications: Current Medications Acetaminophen (Tylenol 325mg Tab) 650 mg PO Q6H PRN PRN Reason: Fever >100.4 F Benztropine Mesylate (Cogentin) 1 mg PO DAILY [facility] Last Admin: 02/05/18 10:12 Dose: 1 mg Cyanocobalamin (Vitamin B12 1000 Mcg Tab) 1,000 mcg PO DAILY [facility] Last Admin: 02/05/18 10:12 Dose: 1,000 mcg Erythromycin (Erythromycin) 1,000 mg PO ONCE ONE PRN Reason: Protocol Stop: 02/06/18 13:01 Erythromycin (Erythromycin) 1,000 mg PO ONCE ONE PRN Reason: Protocol Stop: 02/06/18 21:01 Famotidine (Pepcid) 40 mg PO [facility] Last Admin: 02/05/18 21:27 Dose: 40 mg Neomycin Sulfate (Neomycin Tab) 1,000 mg PO ONCE ONE Stop: 02/06/18 14:01 Neomycin Sulfate (Neomycin Tab) 1,000 mg PO ONCE ONE Stop: 02/06/18 13:01 Neomycin Sulfate (Neomycin Tab) 1,000 mg PO ONCE ONE Stop: 02/06/18 21:01 Ondansetron HCl (Zofran Inj) 4 mg IVP Q6H PRN PRN Reason: Nausea/Vomiting Polyethylene Glycol/Electrolytes (Golytely) 4,000 ml PO ONCE ONE Stop: 02/06/18 08:01 Risperidone (Risperdal Tab) 2 mg PO BID [facility] PRN Reason: Protocol Last Admin: 02/05/18 17:06 Dose: 2 mg - Labs Labs: 02/05/18 08:27 02/05/18 08:27 PT 12.7 SECONDS (9.4-12.5) H 01/29/18 05:30 INR 1.10 (0.93-1.08) H 01/29/18 05:30 APTT 26.8 Seconds (25.1-36.5) 01/29/18 05:30 - Constitutional Appears: Non-toxic, No Acute Distress - Head Exam Head Exam: ATRAUMATIC, NORMOCEPHALIC - Eye Exam Eye Exam: EOMI - ENT Exam ENT Exam: Mucous Membranes Moist - Neck Exam Neck Exam: Full ROM - Respiratory Exam Respiratory Exam: NORMAL BREATHING PATTERN. absent: Accessory Muscle Use, Respiratory Distress - GI/Abdominal Exam GI & Abdominal Exam: Soft. absent: Distended, Firm, Guarding, Rigid, Tenderness , Rebound - Extremities Exam Extremities Exam: absent: Calf Tenderness, Pedal Edema - Neurological Exam Neurological Exam: Alert, Awake, Oriented x3 Assessment and Plan - Assessment and Plan (Free Text) Assessment: 37M w. R colon mass Plan: -Will plan for OR tomorrow pending path results for microsatellite instability which will determine type of surgery -bowel prep today -CLD during the day -npo at midnight -d/w attending Zemaitis PGY3
[2018-02-06] MEDS ORDERED: Magnesium Citrate Oral SOL (300 ml) PO ONE ×2 (07:58→16:00)
[2018-02-06] MEDS ORDERED: Peg-Electrolyte Oral Soln 4L (Golytely) PO ONE (08:00)
[2018-02-06] MEDS ORDERED: ERYthromycin Base 250 MG DR Cap PO ONE (14:00)
--- NOTE | 2018-02-06 22:01 | RAD ---
HISTORY: pre op COMPARISON: No prior. TECHNIQUE: Chest PA and lateral FINDINGS: LUNGS: No active pulmonary disease. PLEURA: No significant pleural effusion identified. No pneumothorax apparent. CARDIOVASCULAR: Normal. OSSEOUS STRUCTURES: No significant abnormalities. VISUALIZED UPPER ABDOMEN: Normal. OTHER FINDINGS: None. IMPRESSION: No active disease.
--- NOTE | 2018-02-06 23:54 | PN ---
DATE: 02/06/2018 SUBJECTIVE: This 37-year-old male who was examined at the bedside and this case was reviewed with himself and his nurse, Tanisha Nelson, registered nurse. The patient is being bowel prepped for elective partial colectomy tomorrow a.m. for recently diagnosed colon carcinoma. The patient at present denies any fever, chills, chest pain or shortness of breath. PHYSICAL EXAMINATION: VITAL SIGNS: On physical exam, he was noted to have a temperature of 98, respirations 20, pulse 56 and blood pressure 109/56 with a pulse ox 97% room air. HEENT: Head, normocephalic and atraumatic. Eyes, no icterus. Ears, clear. Throat, noninjected. NECK: Supple. HEART: Regular. S1, S2. LUNGS: Clear. ABDOMEN: Soft. EXTREMITIES: No edema. SKIN: Without rash. NEUROLOGIC: Intact. PSYCHOLOGIC: Calm. VASCULAR: Legs warm to touch. LABORATORY DATA: White count is 6800, hemoglobin 12, hematocrit 39.9, platelets 340,000. PT/INR 1.10. PTT 26.8. Sodium 138, K 4.3, chloride 103, bicarb 26, BUN 19, creatinine 0.9, random blood sugar 69 and calcium level 10.1. Hepatitis A, B, C serology negative. A 2D echocardiogram was reviewed and shows adequate left ventricular ejection fraction and normal wall motion. Liver CT was reviewed. There was no evidence of metastatic colon cancer to the liver. It showed a probable right hepatic liver cyst. A chest x-ray has been ordered preop and is pending. IMPRESSION: This is a 37-year-old male with longstanding history of paranoid schizophrenia, admitted with marked advanced anemia, which was found to be secondary to iron-deficiency with gastric ulcer on upper endoscopy and colon cancer on colonoscopy. The patient continues on bowel prep, will be monitored closely perioperatively and all of the above was reviewed in detail with the patient, nursing, Dr. Vasques from Psychiatry, Dr. Kem Oliver from Surgery and Dr. Louise Butcher from GI as well as Dr. Geo Trivedi from Hematology/Oncology. Greater than 35 minutes was spent in the care management, review of x-rays, labs and medication for this patient preoperatively. All questions were answered. Genia Pang MD [facility] # [id number] ALESHA
--- NOTE | 2018-02-07 05:27 | PN ---
DATE: 02/06/2018 SUBJECTIVE: This patient was seen and evaluated earlier today. The patient is comfortable. Tolerating the bowel preparation. PHYSICAL EXAMINATION: VITAL SIGNS: Pulse 99, blood pressure is 121/58, respirations 18. HEENT: Atraumatic and anicteric. NECK: Supple. HEART: S1 and S2 heard. LUNGS: Bilateral air entry present. ABDOMEN: Soft. There is no tenderness. EXTREMITIES: No edema. No cyanosis. LABORATORY DATA: No recent labs today. IMPRESSION: This is a 37-year-old patient with large ulcerated mass in the proximal ascending colon, clinically suspected of adenocarcinoma, status post biopsy, final path pending. But in view of his age, the patient also had a normal colon biopsy taken for a microsatellite instability. The normal tissue biopsy was also sent. This is pending. IMPRESSION: 1. Iron deficiency anemia. 2. B12 deficiency. 3. Rule out celiac disease. There is some focal increase in CD3, lymphocytes present with mild blending of the mucosa. 4. Gastric ulcer. The patient has a history of prepyloric gastric ulcers. The patient's endoscopy showed it. The abnormal CAT scan shows some focal abnormalities in the rectum area, which I did not see during the colonoscopy. PLAN: The patient is cleared for an OR tomorrow. We will discuss with surgical team regarding the intraoperative sigmoidoscopy and evaluate. Would recommend celiac disease profile. The patient is scheduled for an OR tomorrow. flexible sigmoidoscopic examination at that time. The patient had some questionable focal abnormalities in the rectum. We will request the surgical team to consider a sigmoidoscopy prior to the colon resection. Discussed with the nursing staff. We will continue to closely follow up his care and suggest further management based on the clinical course. Thank you very much for allowing me to participate in the care of the patient. Louise Butcher MD
[2018-02-07 07:11] LABS: BASO # 0.04 K/mm3 (0.0-2.0); BASO % 0.6 % (0.0-3.0); EOS # 0.2 (0.0-0.7); EOS % 2.4 % (1.5-5.0); GRAN # 5.67 (1.4-6.5); GRAN % 80.1 % (50.0-68.0); HEMOGLOBIN 12.1 g/dL (14.0-18.0); LYMPH # 0.6 (1.2-3.4); MEAN CELL VOLUME 73.3 fl (80.0-105.0); MEAN CORPUSCULAR HEMOGLOBIN 22.2 pg (25.0-35.0); MEAN CORPUSCULAR HGB CONC 30.3 g/dl (31.0-37.0); MONO # 0.6 (0.1-0.6); MONO % 7.9 % (1.0-6.0); PLATELET COUNT 320 10^3/uL (120.0-450.0); RBC 5.46 10^6/uL (3.5-6.1); WHITE BLOOD COUNT 7.1 10^3/ul (4.5-11.0)
[2018-02-07 07:24] LABS: INR 1.12 (0.93-1.08); PARTIAL THROMBOPLASTIN TIME 28.6 Seconds (25.1-36.5); PROTHROMBIN TIME 12.9 SECONDS (9.4-12.5)
[2018-02-07 07:53] LABS: ALB/GLOB RATIO 1.3 (1.1-1.8); ALBUMIN 4.2 g/dL (3.0-4.8); ALT/SGPT 26 U/L (7-56); AST/SGOT 31 U/L (17-59); BLOOD UREA NITROGEN 17 mg/dL (7-21); CALCIUM 9.9 mg/dL (8.4-10.5); GFR AFRICAN-AMERICAN > 60; GFR NON-AFRICAN AMERICAN > 60
[2018-02-07 08:40] LABS: ANISOCYTOSIS 2+; EOSINOPHIL 3 % (0.0-3.0); LYMPHOCYTE 10 % (22.0-35.0); MICROCYTOSIS 3+; MONOCYTE 3 % (1.0-6.0); NEUTROPHIL 84 % (50.0-70.0); POIKILOCYTOSIS 3+
[2018-02-07 08:41] LABS: OVALOCYTES 1+; TEAR DROP CELLS SLIGHT
[2018-02-07 08:42] LABS: LARGE PLATELETS PRESENT; PLATELET ESTIMATE NORMAL (NORMAL)
--- NOTE | 2018-02-07 08:43 | PN ---
DATE: 02/05/2018 SUBJECTIVE: This 37-year-old male was examined at his bedside and this case was reviewed in detail with his nurse, Lizzette Barfield, registered nurse. The patient is being readied for elective colon surgery for recently diagnosed colon cancer. This will be scheduled for 02/07/2018. The patient denies any fever, chills, chest pain or shortness of breath and recent 2-D echocardiogram showed no significant wall motion abnormalities, nor valvular disturbances. PHYSICAL EXAMINATION: VITAL SIGNS: At present, his temperature is 97.8, respirations 20, pulse 60 and blood pressure 128/66 with a pulse ox of 97% on room air. HEENT: Head: Normocephalic, atraumatic. Eyes: No icterus. Ears: Clear. Throat: Noninjected. NECK: Supple. HEART: Regular S1, S2. LUNGS: Clear. ABDOMEN: Soft. EXTREMITIES: No edema. SKIN: Without rash. NEUROLOGICAL: Intact. PSYCHOLOGICAL: Alert. VASCULAR: Legs warm to touch. LABORATORY DATA: White count 6800, hemoglobin 12, hematocrit 39.9, platelets 340,000. PT/INR 1.10, PTT 26.8. Sodium 138, K 4.3, chloride 103, bicarb 26, BUN 19, creatinine 0.9, random blood sugar 69. Calcium normal 10.1. Antiparietal cell antibody negative. Hepatitis A, B, C serology negative. Liver CT was reviewed. The patient was noted to have a left kidney stone, nonobstructive and a probable right hepatic lobe cyst. Also on surgical specimen obtained during endoscopy, he was noted to have moderate chronic active gastritis with H. pylori positive on further evaluation. This most likely will require Prevpac that will need to be discussed regarding timing given surgery planning for Wednesday a.m. At present, the plan is to continue his heart-healthy bland diet and tomorrow morning, he will be started on clear liquid diet and be made n.p.o. after midnight. At present, he continues on Zofran p.r.n. nausea, vomiting, oral vitamin B12 1000 mcg daily, Risperdal 2 mg p.o. b.i.d. and Cogentin 1 mg daily with Pepcid 40 mg p.o. at bedtime and Tylenol 650 p.o. q.6 hours p.r.n. pain or temperature greater than 101. All of the above was discussed in detail with the patient, Dr. Louise Butcher from GI, Dr. Kem Oliver from Surgery and Dr. Andrew Vasques from Psychiatry. The patient is aware, calm and in agreement with elective surgery. All of the above was discussed in detail with him at bedside. Genia Pang MD [facility]TD[facility]
[2018-02-07] MEDS ORDERED: cefTRIAXone (Rocephin) 1 gm Inj ONE (10:01)
[2018-02-07] MEDS ORDERED: metroNIDAZOLE IV 500 mg/100 ml 500 MG/100 ML BAG ONE (10:01)
[2018-02-07] MEDS ORDERED: Bupivacaine 0.5% Inj(30mL) ONE (10:01)
[2018-02-07] MEDS ORDERED: Propofol 10 mg/ml Inj (20 ML) ONE ×2 (10:23→12:46)
[2018-02-07] MEDS ORDERED: Midazolam 2 MG/2 ML VIAL ONE (10:23)
[2018-02-07] MEDS ORDERED: Succinylcholine 200 mg/10 ml Inj IV ONE (10:24)
[2018-02-07] MEDS ORDERED: Rocuronium 10 mg/ml (5 ml) ONE ×2 (10:24→11:13)
[2018-02-07] MEDS ORDERED: Bupivacaine-Epi 0.25%-1:200,000 PF Inj ONE (10:41)
--- NOTE | 2018-02-07 10:47 | CP.PCM.PN ---
<Ruddy Goode - Last Filed: 02/07/18 10:42> Subjective - Date & Time of Evaluation Date of Evaluation: 02/07/18 Time of Evaluation: 10:43 - Subjective Subjective: Gastroenterology Progress note for Dr. Butcher This 37M was seen and examined this AM at bedside. No acute events reported overnight. Pt has no complaints at this time denies any nausea vomiting chest pain. He is to go for surgery today. Objective - Vital Signs/Intake and Output Vital Signs (last 24 hours): Temp Pulse Resp BP Pulse Ox 97.9 F 74 20 119/60 94 L 02/07/18 07:30 02/07/18 07:30 02/07/18 07:30 02/07/18 07:30 02/07/18 07:30 Intake and Output: 02/07/18 02/07/18 06:59 18:59 Intake Total 960 Balance 960 - Medications Medications: Current Medications Acetaminophen (Tylenol 325mg Tab) 650 mg PO Q6H PRN PRN Reason: Fever >100.4 F Benztropine Mesylate (Cogentin) 1 mg PO DAILY [facility] Last Admin: 02/07/18 09:24 Dose: Not Given Cyanocobalamin (Vitamin B12 1000 Mcg Tab) 1,000 mcg PO DAILY [facility] Last Admin: 02/07/18 09:23 Dose: Not Given Famotidine (Pepcid) 40 mg PO HS [facility] Last Admin: 02/06/18 21:18 Dose: 40 mg Ondansetron HCl (Zofran Inj) 4 mg IVP Q6H PRN PRN Reason: Nausea/Vomiting Risperidone (Risperdal Tab) 2 mg PO BID [facility] PRN Reason: Protocol Last Admin: 02/07/18 09:24 Dose: Not Given - Labs Labs: 02/07/18 06:30 02/07/18 06:30 PT 12.9 SECONDS (9.4-12.5) H 02/07/18 06:30 INR 1.12 (0.93-1.08) H 02/07/18 06:30 APTT 28.6 Seconds (25.1-36.5) 02/07/18 06:30 - Constitutional Appears: Non-toxic, No Acute Distress - Head Exam Head Exam: ATRAUMATIC, NORMOCEPHALIC - Eye Exam Eye Exam: EOMI - ENT Exam ENT Exam: Mucous Membranes Moist - Neck Exam Neck Exam: Full ROM - Respiratory Exam Respiratory Exam: NORMAL BREATHING PATTERN. absent: Accessory Muscle Use, Respiratory Distress - GI/Abdominal Exam GI & Abdominal Exam: Soft. absent: Distended, Firm, Guarding, Rigid, Tenderness , Rebound - Extremities Exam Extremities Exam: absent: Calf Tenderness, Pedal Edema - Neurological Exam Neurological Exam: Alert, Awake, Oriented x3 Assessment and Plan - Assessment and Plan (Free Text) Assessment: Symptomatic anemia, status post EGD/colon, found to have peptic ulcer disease, ascending colonic lesion, s/p ct scan report rectal was thickening NOn obstructing 2mm calculi 10 mm non low density mass right hepatic lobe, possible cyst Schizoaffective disorder Anxiety Hepatitis C?, hepatitis panel negative Plan: Followup MSI testing further recommendations dependent on results Followup possible OR today D/W Dr. Hadley Goode PGY2 <Louise Butcher V - Last Filed: 02/07/18 23:53> Objective - Vital Signs/Intake and Output Vital Signs (last 24 hours): Temp Pulse Resp BP Pulse Ox 97.9 F 61 17 124/73 97 02/07/18 14:45 02/07/18 14:45 02/07/18 14:45 02/07/18 14:45 02/07/18 14:45 - Medications Medications: Current Medications Acetaminophen (Tylenol 325mg Tab) 650 mg PO Q6H PRN PRN Reason: Fever >100.4 F Benztropine Mesylate (Cogentin) 1 mg PO DAILY [facility] Last Admin: 02/07/18 09:24 Dose: Not Given Cyanocobalamin (Vitamin B12 1000 Mcg Tab) 1,000 mcg PO DAILY [facility] Last Admin: 02/07/18 09:23 Dose: Not Given Enoxaparin Sodium (Lovenox) 30 mg SC DAILY [facility] PRN Reason: Protocol Famotidine (Pepcid) 40 mg PO HS [facility] Last Admin: 02/07/18 22:01 Dose: 40 mg Lactated Ringer's (Lactated Ringer's) 1,000 mls @ 120 mls/hr IV .Q8H20M [facility] Ceftriaxone Sodium (Rocephin 1 Gram Ivpb) 1 gm in 100 mls @ 100 mls/hr IVPB DAILY [facility] PRN Reason: Protocol Metronidazole (Flagyl) 250 mg in 50 mls @ 100 mls/hr IVPB Q8 [facility] PRN Reason: Protocol Stop: 02/12/18 22:01 Last Admin: 02/07/18 22:00 Dose: 100 mls/hr Morphine Sulfate (Morphine) 4 mg IVP Q4H PRN PRN Reason: Pain, severe (8-10) Last Admin: 02/07/18 22:09 Dose: 4 mg Ondansetron HCl (Zofran Inj) 4 mg IVP Q6H PRN PRN Reason: Nausea/Vomiting Oxycodone HCl (Oxycodone Immediate Release Tab) 5 mg PO Q4 PRN PRN Reason: Pain, moderate (4-7) Risperidone (Risperdal Tab) 2 mg PO BID [facility] PRN Reason: Protocol Last Admin: 02/07/18 18:32 Dose: Not Given - Labs Labs: 02/07/18 15:20 02/07/18 06:30 PT 12.9 SECONDS (9.4-12.5) H 02/07/18 06:30 INR 1.12 (0.93-1.08) H 02/07/18 06:30 APTT 28.6 Seconds (25.1-36.5) 02/07/18 06:30 Attending/Attestation - Attestation I have personally seen and examined this patient.: Yes I have fully participated in the care of the patient.: Yes I have reviewed all pertinent clinical information, including history, physical exam and plan: Yes Notes (Text): p 02/07/18 23:53
[2018-02-07] MEDS ORDERED: MetroNIDAZOLE 500 mg/100 ml IVPB ONE (11:05)
[2018-02-07] MEDS ORDERED: Bupivacaine 0.25% Inj(30mL) ONE (11:30)
[2018-02-07] MEDS ORDERED: Neostigmine Methylsulfate 3mg/3ml Syringe IV ONE (11:41)
[2018-02-07] MEDS ORDERED: Sevoflurane - Inhalation Anesthetic Liq (250 ml) ONE (12:24)
[2018-02-07] MEDS ORDERED: Morphine 4 mg/ml ISec ONE ×2 (12:45→12:54)
[2018-02-07] MEDS ORDERED: HYDROmorphone 0.5 mg/0.5 ml ISec IVP PRN (13:27)
--- NOTE | 2018-02-07 13:29 | PCM.SURG1 ---
Surgeon's Initial Post Op Note - Surgeon's Notes Surgeon: Dr. Oliver Certified Recreational Therapist: Dr. Arreaga, Dr. King Type of Anesthesia: General Endo Pre-Operative Diagnosis: Ascending Colon Mass Operative Findings: Ascending Colon Mass Post-Operative Diagnosis: Ascending Colon Mass Operation Performed: Right hemicolectomy with anastomosis and sigmoidoscopy Specimen/Specimens Removed: Right Colon Estimated Blood Loss: EBL {In ML}: 100 Blood Products Given: N/A Drains Used: No Drains Post-Op Condition: Good Date of Surgery/Procedure: 02/07/18 Time of Surgery/Procedure: 13:28
[2018-02-07] MEDS ORDERED: Lactated Ringer's 1,000 ML IV SCH (13:30)
[2018-02-07] MEDS ORDERED: Morphine 4 mg/ml ISec IVP PRN (13:37)
[2018-02-07] MEDS ORDERED: Oxycodone/Acetaminophen 5/325 mg Tab PO PRN (13:38)
[2018-02-07] MEDS ORDERED: HYDROmorphone 0.5 mg/0.5 ml ISec ONE (13:49)
[2018-02-07] MEDS ORDERED: metroNIDAZOLE IV 250mg/50 ml 250 MG/50 ML BAG IVPB SCH (14:00)
[2018-02-07 15:31] LABS: HEMOGLOBIN 11.4 g/dL (14.0-18.0); MEAN CELL VOLUME 72.4 fl (80.0-105.0); MEAN CORPUSCULAR HEMOGLOBIN 22.5 pg (25.0-35.0); MEAN CORPUSCULAR HGB CONC 31.1 g/dl (31.0-37.0); PLATELET COUNT 267 10^3/uL (120.0-450.0); RBC 5.07 10^6/uL (3.5-6.1)
--- NOTE | 2018-02-07 19:33 | PN ---
DATE: 02/07/2018 SUBJECTIVE: This 37-year-old male is on schedule for colon cancer surgery with Dr. Kem Oliver today in the setting of severe iron-deficiency anemia after he presented with shortness of breath, weakness and a markedly depressed hemoglobin/hematocrit, that on further workup revealed epigastric ulcer and a colon cancer. PHYSICAL EXAMINATION: VITAL SIGNS: At present, the patient has a temperature of 97.9, respirations 20, pulse 74 and blood pressure 119/60 with pulse ox 94% on room air. HEENT: Head: Normocephalic, atraumatic. Eyes: No icterus. Ears: Clear. Throat: Noninjected. NECK: Supple. HEART: Regular S1, S2. LUNGS: Clear. ABDOMEN: Soft. EXTREMITIES: No edema. SKIN: Without rash. NEUROLOGICAL: Intact. PSYCHOLOGICAL: Alert and calm. VASCULAR: Legs warm to touch. LABORATORY DATA: White count 7100, hemoglobin 12.1, hematocrit 40, platelets 320,000. PT/INR 1.12, PTT 28.6. Sodium 137, K 4.4, chloride 100, bicarb 26, BUN 17, creatinine 0.8, random blood sugar 95. Bilirubin 0.7, AST 31, ALT 26, alkaline phosphatase 93. CEA level was elevated at 4.6. Hepatitis A, B, C panels were negative. Chest x-ray was reviewed from February 06, 2018. It showed no active pulmonary disease, no infiltrate, no effusion, no pneumothorax. IMPRESSION: A 37-year-old male on schedule for partial colectomy for recently diagnosed colon cancer in the setting of advanced iron-deficiency anemia and admission for shortness of breath and weakness with markedly depressed hemoglobin/hematocrit on admission that was treated with blood cell transfusion and GI workup revealing gastric ulcer and colon cancer. PLAN: To proceed with partial colectomy and to monitor the patient's postoperative progress. He will require blood testing perioperatively. Pathology reporting and then follow up with Dr. Geo Trivedi from Oncology regarding treatment plan as outpatient for a newly diagnosed colon cancer. All of the above was discussed in detail with the patient, nursing and co-consultants. All questions were answered. Genia Pang MD [facility] # [id number]
[2018-02-07] MEDS: metroNIDAZOLE IV 250mg/50 ml 250 MG/50 ML BAG IVPB SCH (22:00)
[2018-02-07] MEDS: Morphine 4 mg/ml ISec IVP PRN (22:09)
[2018-02-08] MEDS: Lactated Ringer's 1,000 ML IV SCH ×3 (00:30→23:29)
[2018-02-08] MEDS: Morphine 4 mg/ml ISec IVP PRN ×4 (02:44→23:30)
[2018-02-08] MEDS: metroNIDAZOLE IV 250mg/50 ml 250 MG/50 ML BAG IVPB SCH ×3 (05:47→21:31)
[2018-02-08 07:00] LABS: HEMOGLOBIN 7.7 g/dL (14.0-18.0); MEAN CELL VOLUME 71.7 fl (80.0-105.0); MEAN CORPUSCULAR HEMOGLOBIN 21.8 pg (25.0-35.0); MEAN CORPUSCULAR HGB CONC 30.4 g/dl (31.0-37.0); PLATELET COUNT 276 10^3/uL (120.0-450.0); RBC 3.53 10^6/uL (3.5-6.1); WHITE BLOOD COUNT 9.7 10^3/ul (4.5-11.0)
[2018-02-08 07:51] LABS: BLOOD UREA NITROGEN 23 mg/dL (7-21); CALCIUM 8.8 mg/dL (8.4-10.5); GFR AFRICAN-AMERICAN > 60; GFR NON-AFRICAN AMERICAN > 60
[2018-02-08] MEDS ORDERED: Lactated Ringer's 1,000 ML IV SCH ×2 (08:45)
--- NOTE | 2018-02-08 08:58 | PCM.RRT ---
<Ramiro Lennon - Last Filed: 02/08/18 08:50> API DEVELOPER Nurse Assessment - Situation Date: 02/08/18 Time API DEVELOPER was called: 08:30 API DEVELOPER Responder Arrival Time: 08:32 API DEVELOPER Location:: [address] [place] [address] Room Number: [id number] API DEVELOPER Reason for Call: Change in Mental Status API DEVELOPER Called By: RN - IV IV Inserted during API DEVELOPER?: No - Respiratory Oxygen Delivery Method: Nasal Cannula @L/min Oxygen Flow Rate: 2 Received Nebulizer Treatments:: No Was the Patient Ventilated with Bag/Mask 100% O2?: No Secretions Suctioned?: No Was the Patient Intubated?: No Was the Patient Placed on a Ventilator?: No - Medication Medications Administered During API DEVELOPER: Lactated Ringer bolus - Diagnostic Test Ordered EKG: Yes Chest X-Ray: No CT Scan: No - Stat Labs Ordered API DEVELOPER Stat Labs Ordered: CBC, BMP, PT/PTT, LACTIC ACID, ABG CPR started during API DEVELOPER?: No - Vital Signs Vital Sign: Rapid Response Vital Sign Blood Pressure 130/70 Pulse Rate 120 Respiratory Rate 16 Oxygen Saturation 98 - Finger Stick Blood Glucose Finger Stick Blood Glucose: 178 - [place] Coma Scale Coma Scale Eye Opening: No response - Time API DEVELOPER Ended Time API DEVELOPER Ended: 08:45 - Vital Signs at end of API DEVELOPER Vital Signs at end of API DEVELOPER: Rapid Response End Vital Sign Blood Pressure 120/77 Pulse Rate 86 Respiratory Rate 18 O2 Sat by Pulse Oximetry 98 - Recommendations Notifications: Attending Physician I.Reason for API DEVELOPER - A) Acute Change in Patient: (Select all that apply): Acute change in mental status Subjective: Pt is s/p right hemicolectomy POD #1 for an ascending colon mass. Pt was being assisted by nurse in transferring from bed to chair when patient experienced an acute, sharp onset of abdominal pain. Pt cannot recall events in-between his abdominal pain and being transferred back into bed. According to nurse, after patient experienced abdominal pain, he became unresponsive. Rapid response was called at 8:30 am. On response, patient's eyes were open, but was not responsive to verbal stimuli. Pulses were intact. However, after about a minute of verbal stimuli patient started to become responsive. Pt responded to commands and questioning appropriately. - Neurological Status (Select all that apply): Alert, Responsive, Oriented, Verbal, Follows Commands - Respiratory Oxygen Delivery Method: Nasal Cannula @L/min Oxygen Flow Rate: 2 - Constitutional Additional Comments: Pale - Head Head Exam: NORMAL INSPECTION - Eyes Eye Exam: Normal appearance - Respiratory Exam Respiratory Exam: Clear to Ausculation Bilateral. absent: Rales, Rhonchi, Wheezes, Respiratory Distress - Cardiovascular Exam Cardiovascular Exam: RRR, +S1, +S2. absent: Gallop, Rubs, Murmur - GI/Abdominal Exam GI & Abdominal Exam: Soft. absent: Distended, Guarding, Tenderness, Rebound - Neurological Exam Neurological Exam: Alert, Awake, Oriented x3 - Extremities Exam Extremities Exam: Full ROM Plan - Assessment of Findings&Treatment Plan Assessment: 37 yo male is s/p right hemicolectomy POD #1, API DEVELOPER called due patient being found unresponsive. Plan: - Vital signs stable - Glucose 178 - Labs - 2 units pRBC ordered per surgery - LR bolus - EKG showed inverted T-waves in lateral leads, changed from previous EKG - Cardiac iso ordered - Orthostatics - Transfer to remote telemetry <Erica Villagomez - Last Filed: 02/08/18 15:00> API DEVELOPER Nurse Assessment - Vital Signs Vital Sign: Rapid Response Vital Sign Blood Pressure 130/70 Pulse Rate 120 Respiratory Rate 16 Oxygen Saturation 98 - Vital Signs at end of API DEVELOPER Vital Signs at end of API DEVELOPER: Rapid Response End Vital Sign Blood Pressure 120/77 Pulse Rate 86 Respiratory Rate 18 O2 Sat by Pulse Oximetry 98 Attending/Attestation - Attestation I have personally seen and examined this patient.: Yes I have fully participated in the care of the patient.: Yes I have reviewed all pertinent clinical information, including history, physical exam and plan: Yes Notes (Text): 02/08/18 14:56 Medical record note made by the resident after discussion with my direction and input after the patient was personally seen and examined by me. I have reviewed the chart and agree that the record accurately reflects by personal performance of the history, physical exam, data review, and medical decision-making, in the course for the patient. I have also personally directed the plan of care. Patient was seen and examined during rapid response.He has episode of Presyncope likely due to orthostatic hypotension to anemia, H/O recent surgery, .Patient does not has any focal deficit.He is alert, awake and oriented.He will be getting PRBC and will be transferred to the telemetry floor for close monitoring. 02/08/18 15:00
[2018-02-08 08:59] LABS: BASO # 0.01 K/mm3 (0.0-2.0); BASO % 0.1 % (0.0-3.0); GRAN % 85.9 % (50.0-68.0); HEMOGLOBIN 7.3 g/dL (14.0-18.0); LYMPH # 0.4 (1.2-3.4); LYMPH % 4.6 % (22.0-35.0); MEAN CELL VOLUME 72.2 fl (80.0-105.0); MEAN CORPUSCULAR HEMOGLOBIN 22.1 pg (25.0-35.0); MEAN CORPUSCULAR HGB CONC 30.5 g/dl (31.0-37.0); MONO # 0.8 (0.1-0.6); MONO % 9.4 % (1.0-6.0); PLATELET COUNT 240 10^3/uL (120.0-450.0); RBC 3.31 10^6/uL (3.5-6.1); WHITE BLOOD COUNT 8.9 10^3/ul (4.5-11.0)
[2018-02-08 09:08] LABS: INR 1.27 (0.93-1.08); PARTIAL THROMBOPLASTIN TIME 23.9 Seconds (25.1-36.5); PROTHROMBIN TIME 14.7 SECONDS (9.4-12.5)
[2018-02-08 09:11] LABS: BLOOD UREA NITROGEN 24 mg/dL (7-21); CALCIUM 8.6 mg/dL (8.4-10.5); GFR AFRICAN-AMERICAN > 60; GFR NON-AFRICAN AMERICAN > 60
--- NOTE | 2018-02-08 09:27 | CP.PCM.PN ---
Subjective - Date & Time of Evaluation Date of Evaluation: 02/08/18 Time of Evaluation: 09:23 - Subjective Subjective: Surgery: Dr. Oliver Pt seen and examined this morning and he was resting comfortably in bed w. mild abd pain. Later this morning while pt was trying to go to bed to chair, he passed out and became unresponsive. [employer]WAY [employer] REPAIRER was called and pt was found to be normotensive and tachycardic. Objective - Vital Signs/Intake and Output Vital Signs (last 24 hours): Temp Pulse Resp BP Pulse Ox 97.9 F 80 18 125/74 98 02/07/18 14:45 02/08/18 09:16 02/08/18 09:16 02/08/18 09:16 02/08/18 09:16 Intake and Output: 02/08/18 02/08/18 06:59 18:59 Intake Total 0 Balance 0 - Medications Medications: Current Medications Acetaminophen (Tylenol 325mg Tab) 650 mg PO Q6H PRN PRN Reason: Fever >100.4 F Benztropine Mesylate (Cogentin) 1 mg PO DAILY [facility] Last Admin: 02/07/18 09:24 Dose: Not Given Cyanocobalamin (Vitamin B12 1000 Mcg Tab) 1,000 mcg PO DAILY [facility] Last Admin: 02/07/18 09:23 Dose: Not Given Enoxaparin Sodium (Lovenox) 30 mg SC DAILY [facility] PRN Reason: Protocol Famotidine (Pepcid) 40 mg PO HS [facility] Last Admin: 02/07/18 22:01 Dose: 40 mg Lactated Ringer's (Lactated Ringer's) 1,000 mls @ 120 mls/hr IV .Q8H20M [facility] Last Admin: 02/08/18 06:28 Dose: 120 mls/hr Ceftriaxone Sodium (Rocephin 1 Gram Ivpb) 1 gm in 100 mls @ 100 mls/hr IVPB DAILY [facility] PRN Reason: Protocol Metronidazole (Flagyl) 250 mg in 50 mls @ 100 mls/hr IVPB Q8 [facility] PRN Reason: Protocol Stop: 02/12/18 22:01 Last Admin: 02/08/18 05:47 Dose: 100 mls/hr Lactated Ringer's (Lactated Ringer's) 1,000 mls @ 999 mls/hr IV .Q1H1M [facility] Stop: 02/08/18 09:45 Last Admin: 02/08/18 09:14 Dose: 999 mls/hr Morphine Sulfate (Morphine) 4 mg IVP Q4H PRN PRN Reason: Pain, severe (8-10) Last Admin: 02/08/18 02:44 Dose: 4 mg Ondansetron HCl (Zofran Inj) 4 mg IVP Q6H PRN PRN Reason: Nausea/Vomiting Oxycodone HCl (Oxycodone Immediate Release Tab) 5 mg PO Q4 PRN PRN Reason: Pain, moderate (4-7) Risperidone (Risperdal Tab) 2 mg PO BID [facility] PRN Reason: Protocol Last Admin: 02/07/18 18:32 Dose: Not Given - Labs Labs: 02/08/18 08:50 02/08/18 08:50 PT 14.7 SECONDS (9.4-12.5) H 02/08/18 08:50 INR 1.27 (0.93-1.08) H 02/08/18 08:50 APTT 23.9 Seconds (25.1-36.5) L 02/08/18 08:50 - Constitutional Appears: Non-toxic, No Acute Distress - Eye Exam Eye Exam: EOMI - ENT Exam ENT Exam: Mucous Membranes Moist - Neck Exam Neck Exam: Full ROM - Respiratory Exam Respiratory Exam: NORMAL BREATHING PATTERN. absent: Accessory Muscle Use, Respiratory Distress - Cardiovascular Exam Cardiovascular Exam: Tachycardia - GI/Abdominal Exam GI & Abdominal Exam: Soft, Tenderness (emanuel-incisional). absent: Distended, Firm, Guarding, Rigid, Rebound Additional comments: midline incision C/D/I w. dressing in place and On-Q ball present - Neurological Exam Neurological Exam: Alert, Awake, Oriented x3 - Psychiatric Exam Psychiatric exam: Normal Affect, Normal Mood - Skin Skin Exam: Dry, Intact, Warm Assessment and Plan - Assessment and Plan (Free Text) Assessment: 37M w. R colon mass s/p R hemicolectomy POD#1 w. [employer]AY [employer] REPA[employer]ER this AM Plan: -Drop in H/H, will transfuse 2U PRBC -Repeat CBC later today, if persistent decrease in hgb will order CT -f/u stat labs -c/w pain management -Encourage Is use -d/w attending Gibson PGY3
[2018-02-08 09:38] LABS: TROPONIN I 0.17 ng/mL
--- NOTE | 2018-02-08 09:47 | CARD ---
APPROVED REPORT EKG Measurement Heart [id number] <Conclusion> Normal sinus rhythm ST & T wave abnormality, consider lateral ischemia [facility].
[2018-02-08] MEDS ORDERED: cefTRIAXone 1 gm 1 GM/100 ML BAG IVPB SCH (10:00)
[2018-02-08] MEDS ORDERED: Enoxaparin 30 mg Syringe SC SCH ×2 (10:00)
[2018-02-08 10:17] LABS: ARTERIAL BLOOD GAS HCO3 24.6 mmol/L (21-28); ARTERIAL BLOOD GAS O2 SAT 99.1 % (95-98); ARTERIAL BLOOD GAS PCO2 38 mm/Hg (35-45); ARTERIAL BLOOD GAS PH 7.42 (7.35-7.45); ARTERIAL BLOOD GAS TCO2 25.8 mmol.L (22-28)
--- NOTE | 2018-02-08 11:25 | CP.PCM.PN ---
<Brooke Viveros - Last Filed: 02/08/18 11:21> Subjective - Date & Time of Evaluation Date of Evaluation: 02/08/18 Time of Evaluation: 10:00 - Subjective Subjective: GI Progress Note Dr Butcher Pt was seen and examined at bedside. Pt is s/p rt hemicolectomy POD#1. Pt feeling weak and fatigued. GUIDE [employer]EIGN TOUR was called this morning on account of transient unresponsiveness. Pt was ordered to receive 2units pRBCs. Abdomen dressing clear dry and intact, mild tenderness at site. Pt denied fever, chills, sob, chest pains, nausea, vomiting, dysuria. Objective - Vital Signs/Intake and Output Vital Signs (last 24 hours): Temp Pulse Resp BP Pulse Ox 98.6 F 80 18 125/74 98 02/08/18 07:30 02/08/18 09:16 02/08/18 09:16 02/08/18 09:16 02/08/18 09:16 Intake and Output: 02/08/18 02/08/18 06:59 18:59 Intake Total 0 Balance 0 - Medications Medications: Current Medications Acetaminophen (Tylenol 325mg Tab) 650 mg PO Q6H PRN PRN Reason: Fever >100.4 F Benztropine Mesylate (Cogentin) 1 mg PO DAILY [facility] Last Admin: 02/08/18 11:00 Dose: Not Given Cyanocobalamin (Vitamin B12 1000 Mcg Tab) 1,000 mcg PO DAILY [facility] Last Admin: 02/08/18 11:00 Dose: Not Given Famotidine (Pepcid) 40 mg PO HS [facility] Last Admin: 02/07/18 22:01 Dose: 40 mg Lactated Ringer's (Lactated Ringer's) 1,000 mls @ 120 mls/hr IV .Q8H20M [facility] Last Admin: 02/08/18 06:28 Dose: 120 mls/hr Ceftriaxone Sodium (Rocephin 1 Gram Ivpb) 1 gm in 100 mls @ 100 mls/hr IVPB DAILY [facility] PRN Reason: Protocol Last Admin: 02/08/18 10:12 Dose: 100 mls/hr Metronidazole (Flagyl) 250 mg in 50 mls @ 100 mls/hr IVPB Q8 [facility] PRN Reason: Protocol Stop: 02/12/18 22:01 Last Admin: 02/08/18 05:47 Dose: 100 mls/hr Morphine Sulfate (Morphine) 4 mg IVP Q4H PRN PRN Reason: Pain, severe (8-10) Last Admin: 02/08/18 02:44 Dose: 4 mg Ondansetron HCl (Zofran Inj) 4 mg IVP Q6H PRN PRN Reason: Nausea/Vomiting Oxycodone HCl (Oxycodone Immediate Release Tab) 5 mg PO Q4 PRN PRN Reason: Pain, moderate (4-7) Risperidone (Risperdal Tab) 2 mg PO BID [facility] PRN Reason: Protocol Last Admin: 02/08/18 11:00 Dose: Not Given - Labs Labs: 02/08/18 08:50 02/08/18 08:50 PT 14.7 SECONDS (9.4-12.5) H 02/08/18 08:50 INR 1.27 (0.93-1.08) H 02/08/18 08:50 APTT 23.9 Seconds (25.1-36.5) L 02/08/18 08:50 - Constitutional Appears: No Acute Distress - Head Exam Head Exam: ATRAUMATIC, NORMAL INSPECTION, NORMOCEPHALIC - Eye Exam Eye Exam: EOMI, Normal appearance, PERRL Pupil Exam: NORMAL ACCOMODATION, PERRL - ENT Exam ENT Exam: Mucous Membranes Dry - Respiratory Exam Respiratory Exam: Clear to Ausculation Bilateral, NORMAL BREATHING PATTERN - Cardiovascular Exam Cardiovascular Exam: REGULAR RHYTHM, +S1, +S2. absent: Murmur - GI/Abdominal Exam GI & Abdominal Exam: Soft, Tenderness, Normal Bowel Sounds Additional comments: dressing CDI - Extremities Exam Extremities Exam: Full ROM, Normal Capillary Refill, Normal Inspection. absent : Joint Swelling, Pedal Edema - Neurological Exam Neurological Exam: Alert, Awake, CN II-XII Intact, Normal Gait, Oriented x3 - Psychiatric Exam Psychiatric exam: Normal Affect, Normal Mood - Skin Skin Exam: Dry, Intact, Normal Color, Warm Assessment and Plan - Assessment and Plan (Free Text) Assessment: s/p Rt Hemicolectomy POD1 Symptomatic anemia status post EGD/colon peptic ulcer disease ascending colonic lesion s/p ct scan report rectal was thickening Non obstructing 2mm calculi 10 mm non low density mass right hepatic lobe, possible cyst Schizoaffective disorder Anxiety Hepatitis C?, hepatitis panel negative Plan: transfuse 2u pRBCs Monitor H&H on q ball for pain incentive spirometry Fu MSI testing for further recommendations NPO Rocephin/flagyl D/W Dr. Butcher <Louise Butcher V - Last Filed: 02/08/18 23:39> Objective - Vital Signs/Intake and Output Vital Signs (last 24 hours): Temp Pulse Resp BP Pulse Ox 98.1 F 83 19 142/74 100 02/08/18 19:56 02/08/18 19:56 02/08/18 19:56 02/08/18 19:56 02/08/18 16:00 Intake and Output: 02/08/18 02/09/18 18:59 06:59 Intake Total 325 325 Output Total 200 500 Balance 125 -175 - Medications Medications: Current Medications Acetaminophen (Tylenol 325mg Tab) 650 mg PO Q6H PRN PRN Reason: Fever >100.4 F Benztropine Mesylate (Cogentin) 1 mg PO DAILY [facility] Last Admin: 02/08/18 11:00 Dose: Not Given Cyanocobalamin (Vitamin B12 1000 Mcg Tab) 1,000 mcg PO DAILY [facility] Last Admin: 02/08/18 11:00 Dose: Not Given Famotidine (Pepcid) 40 mg PO HS [facility] Last Admin: 02/08/18 21:26 Dose: 40 mg Lactated Ringer's (Lactated Ringer's) 1,000 mls @ 120 mls/hr IV .Q8H20M [facility] Last Admin: 02/08/18 23:29 Dose: 120 mls/hr Ceftriaxone Sodium (Rocephin 1 Gram Ivpb) 1 gm in 100 mls @ 100 mls/hr IVPB DAILY [facility] PRN Reason: Protocol Last Admin: 02/08/18 10:12 Dose: 100 mls/hr Morphine Sulfate (Morphine) 4 mg IVP Q4H PRN PRN Reason: Pain, severe (8-10) Last Admin: 02/08/18 23:30 Dose: 4 mg Ondansetron HCl (Zofran Inj) 4 mg IVP Q6H PRN PRN Reason: Nausea/Vomiting Oxycodone HCl (Oxycodone Immediate Release Tab) 5 mg PO Q4 PRN PRN Reason: Pain, moderate (4-7) Risperidone (Risperdal Tab) 2 mg PO BID [facility] PRN Reason: Protocol Last Admin: 02/08/18 17:48 Dose: 2 mg - Labs Labs: 02/08/18 22:40 02/08/18 08:50 PT 14.7 SECONDS (9.4-12.5) H 02/08/18 08:50 INR 1.27 (0.93-1.08) H 02/08/18 08:50 APTT 23.9 Seconds (25.1-36.5) L 02/08/18 08:50 Attending/Attestation - Attestation I have personally seen and examined this patient.: Yes I have fully participated in the care of the patient.: Yes I have reviewed all pertinent clinical information, including history, physical exam and plan: Yes Notes (Text): This is an addendum to GI progress report dictated by Leila London APN.The patient was seen and examined earlier. Medical records, lab studies, imagings were reviewed. Last 24 hours events reviewed. Agreed with the above treatment plan as outlined in Leila London APN's notes the with the addition of the following Status post 2 units packed RBC Status post a right hemicolectomy Follow-up with a hemoglobin hematocrit Rule celiac disease follow-up hemoglobin 02/08/18 23:39
--- NOTE | 2018-02-08 21:02 | PN ---
DATE: 02/08/2018 SUBJECTIVE: This 37-year-old male had a rapid response called earlier this morning when he had a near syncopal event after trying to walk in his room postoperatively. He is status post partial colectomy yesterday for colon cancer. Initially postoperatively, he had a hemoglobin of 11.4 and then this morning he was noted to have a hemoglobin of 7.3. Patient was seen by the rapid response team. He was placed back in bed, found to be alert and oriented and was immediately typed and crossed for packed red blood cell transfusion. He was given fluid resuscitation and at present is actively denying any fever, chills, chest pain or shortness of breath and is cooperating with the medical team and is in agreement for blood cell transfusion. PHYSICAL EXAMINATION: VITAL SIGNS: Temperature 97.6, respirations 18, pulse 80, blood pressure 125/74 and pulse ox 98% on room air. HEENT: Head: Normocephalic, atraumatic. Eyes: No icterus. Ears: Clear. Throat: Non-injected. NECK: Supple. HEART: Regular S1 and S2. LUNGS: Clear. ABDOMEN: Soft. EXTREMITIES: No edema. SKIN: Without rash. NEUROLOGIC: Able to move all four extremities. Grossly intact. PSYCHOLOGICAL: Alert and oriented x3. SKIN: No rash. LABORATORY DATA: White count 8900, hemoglobin 7.3, hematocrit 23.9, platelets 240,000. PT/INR 1.27, PTT 23.9. ABG; pH of 7.42, pCO2 of 38, pO2 of 120, bicarb 24.6 on 24% FiO2. Sodium 135, potassium 4.7, chloride 103, bicarbonate 23, BUN 24, creatinine 1.0, random blood sugar 153, calcium 8.6, phosphorus 4.7, magnesium 2.0, CPK normal at 93. CEA 4.6 high. Hepatitis A, B, C serology negative. IMPRESSION: A 37-year-old male status post rapid response where he was found to be markedly anemic after having a near syncopal episode after recent partial colectomy for colon cancer in the setting of longstanding iron deficiency anemia with history of gastrointestinal bleeding and paranoid schizophrenia. PLAN: The plan as discussed with patient, surgical first assistant and nursing will be to maintain this patient on the cardiac unit. He is ordered to have 3 units of packed red blood cells transfused. He continues on Cogentin 1 mg p.o. daily, Pepcid 40 mg p.o. at bedtime, Risperdal 2 mg p.o. b.i.d., Rocephin 1 g IV q. 24, Flagyl 250 mg IV q. 8, Tylenol 650 p.o. q. 6 hours p.r.n. fever, vitamin B12 1000 mcg p.o. daily, and Zofran 4 mg IV q. 6 hours p.r.n. nausea and vomiting. He was instructed as to the use of incentive spirometry; has nasal O2 p.r.n. Remains n.p.o. and will have blood count monitored during blood cell transfusions. He is ordered to have orthostatic vital signs. He is ordered to have physical therapy for bedside range of motion and reconditioning and gait training. He will be scheduled for a basic metabolic panel and CBC for the a.m. and continues to be monitored by Dr. Kem Oliver from Surgery, Dr. Geo Trivedi from Hematology and Dr. Louise Butcher from GI as well as Dr. Andrew Vasques from Psychiatry. Greater than 35 units was spent in the care, management, review of labs, orders and discussion of this patient's care with co-consultants today. All questions were answered. Genia Pang MD MTDSanya
[2018-02-08 22:44] LABS: HEMOGLOBIN 7.2 g/dL (14.0-18.0); MEAN CELL VOLUME 75.5 fl (80.0-105.0); MEAN CORPUSCULAR HEMOGLOBIN 23.8 pg (25.0-35.0); MEAN CORPUSCULAR HGB CONC 31.6 g/dl (31.0-37.0); PLATELET COUNT 211 10^3/uL (120.0-450.0); RBC 3.02 10^6/uL (3.5-6.1); WHITE BLOOD COUNT 8.3 10^3/ul (4.5-11.0)
[2018-02-09] MEDS: Morphine 4 mg/ml ISec IVP PRN ×5 (03:47→20:18)
[2018-02-09 06:40] LABS: MEAN CORPUSCULAR HEMOGLOBIN 24.1 pg (25.0-35.0); MEAN CORPUSCULAR HGB CONC 31.4 g/dl (31.0-37.0); PLATELET COUNT 225 10^3/uL (120.0-450.0); RBC 2.91 10^6/uL (3.5-6.1); WHITE BLOOD COUNT 7.2 10^3/ul (4.5-11.0)
[2018-02-09 06:53] LABS: BLOOD UREA NITROGEN 11 mg/dL (7-21); CALCIUM 8.7 mg/dL (8.4-10.5); GFR AFRICAN-AMERICAN > 60; GFR NON-AFRICAN AMERICAN > 60
[2018-02-09 07:21] LABS: TROPONIN I 0.33 ng/mL
--- NOTE | 2018-02-09 08:11 | CP.PCM.PN ---
Subjective - Date & Time of Evaluation Date of Evaluation: 02/09/18 Time of Evaluation: 08:07 - Subjective Subjective: Surgery: Dr. Oliver Patient appears better today. He reports pain controlled with morphine. Denies n /v/f/c. Denies SOB or chest pain. Denies flatus or BM. Per nursing no acute events overnight. Objective - Vital Signs/Intake and Output Vital Signs (last 24 hours): Temp Pulse Resp BP Pulse Ox 98.1 F 74 19 142/74 100 02/08/18 19:56 02/09/18 06:00 02/08/18 19:56 02/08/18 19:56 02/08/18 16:00 Intake and Output: 02/09/18 02/09/18 06:59 18:59 Intake Total 2725 0 Output Total 500 975 Balance 2225 -975 - Medications Medications: Current Medications Acetaminophen (Tylenol 325mg Tab) 650 mg PO Q6H PRN PRN Reason: Fever >100.4 F Benztropine Mesylate (Cogentin) 1 mg PO DAILY [facility] Last Admin: 02/08/18 11:00 Dose: Not Given Cyanocobalamin (Vitamin B12 1000 Mcg Tab) 1,000 mcg PO DAILY [facility] Last Admin: 02/08/18 11:00 Dose: Not Given Famotidine (Pepcid) 40 mg PO [facility] Last Admin: 02/08/18 21:26 Dose: 40 mg Lactated Ringer's (Lactated Ringer's) 1,000 mls @ 120 mls/hr IV .Q8H20M [facility] Last Admin: 02/08/18 23:29 Dose: 120 mls/hr Morphine Sulfate (Morphine) 4 mg IVP Q4H PRN PRN Reason: Pain, severe (8-10) Last Admin: 02/09/18 03:47 Dose: 4 mg Ondansetron HCl (Zofran Inj) 4 mg IVP Q6H PRN PRN Reason: Nausea/Vomiting Oxycodone HCl (Oxycodone Immediate Release Tab) 5 mg PO Q4 PRN PRN Reason: Pain, moderate (4-7) Risperidone (Risperdal Tab) 2 mg PO BID [facility] PRN Reason: Protocol Last Admin: 02/08/18 17:48 Dose: 2 mg - Labs Labs: 02/09/18 06:10 02/09/18 06:10 PT 14.7 SECONDS (9.4-12.5) H 02/08/18 08:50 INR 1.27 (0.93-1.08) H 02/08/18 08:50 APTT 23.9 Seconds (25.1-36.5) L 02/08/18 08:50 - Constitutional Appears: Non-toxic, No Acute Distress - Head Exam Head Exam: ATRAUMATIC, NORMOCEPHALIC - Eye Exam Eye Exam: EOMI, Normal appearance - Respiratory Exam Respiratory Exam: NORMAL BREATHING PATTERN. absent: Respiratory Distress - Cardiovascular Exam Cardiovascular Exam: REGULAR RHYTHM. absent: Tachycardia - GI/Abdominal Exam GI & Abdominal Exam: Soft. absent: Distended, Tenderness, Rebound - Extremities Exam Extremities Exam: Normal Inspection. absent: Calf Tenderness - Neurological Exam Neurological Exam: Alert, Awake - Psychiatric Exam Psychiatric exam: Normal Affect, Normal Mood - Skin Skin Exam: Dry, Warm Assessment and Plan - Assessment and Plan (Free Text) Assessment: 37 y/o male s/p right hemicolectomy POD2 Plan: Hgb 7.0 today, VSS repeat CBC at noon today -transfuse prn -cont sips and chips until repeat Hgb stabilized -OOB as tolerated -IS use -cont VS Q 4hr -Q4hr output monitoring -monitor for bowel function -SCDs for DVT -further recs per DR. Benito Lockhart PGY3
--- NOTE | 2018-02-09 08:34 | OP ---
PROCEDURE DATE: 02/07/2018 PREOPERATIVE DIAGNOSIS: Carcinoma of the ascending colon. POSTOPERATIVE DIAGNOSIS: Carcinoma of the ascending colon. OPERATION PERFORMED: Right hemicolectomy, radical. SURGEON: Kem Oliver MD ASSISTANTS: Dr. Alexsander DO and Dr. Fernando DO Sigmoidoscopy was obtained in the beginning of the case. It was occluded by stool and was unremarkable and noting that there was a rectal issue seen on the CAT scan, this was not seen by colonoscopy. DESCRIPTION OF PROCEDURE: In any case, the abdomen was prepped and draped in usual manner. After the time-out was consistent, the abdomen was entered through the prepped and then draped skin. Midline incision was made through the skin and subcutaneous tissues and to the fascia and opened. The abdomen was entered and was unremarkable. The entire colon was examined from cecum to rectosigmoid and except for a cecal or ascending colon lesion, there was nothing else untoward. The liver was unremarkable as was the peritoneum and the omentum. Line of Toldt was taken down by sharp dissection followed by cautery. There were lot of adhesions in the right lower quadrant that required lysis and the distal ileum was stuck in the pelvis that required lysis, this was done expeditiously. The appendix could not be visualized, although he claims never operation. Ultimately, I could not find the appendix and could not see this when I open the specimen. In any case, the omentum was pulled up to the transverse colon, which is very mobile and entering the space, it was dissected laterally followed by the line of Toldt. The area after the entire right colon was up in the air and examined both the right colic and middle colic are identified. Going to the right of the middle colic, the mesentery was divided followed by the colon and the omentum. The colon was divided with STAR as was the distal ileum at the point of . The colon was then resected with using harmonic scalpel, the specimen was removed and opened showing no appendix and a very large bleeding lesion in the right lower quadrant. The distal ileum and the transverse colon were lined up, sutured with silk, and mesentery was closed with 3-0 Vicryl after packing. The STAR was run in through a colotomy. It was fired and closed with a using Allis clamps. The lumen was good. There was little bit of bleeding of the muscularis that was cauterized. This was put in its normal position, the abdomen was copiously irrigated and dried, was placed to either sides and the incision was closed with running #1 PDS above and below and tied in the middle, closed with Vicryl, and the skin was closed with farrah. The patient was taken to the recovery room in good condition after sponge and needle counts were declared correct. Kem Oliver MD
[2018-02-09 08:45] LABS: MEAN CELL VOLUME 76.6 fl (80.0-105.0)
--- NOTE | 2018-02-09 11:15 | CARD ---
APPROVED REPORT EKG Measurement Heart [id number] <Conclusion> Normal sinus rhythm T wave abnormality, consider lateral ischemia Abnormal ECG
--- NOTE | 2018-02-09 11:35 | CP.PCM.PN ---
<Ruddy Goode - Last Filed: 02/09/18 11:31> Subjective - Date & Time of Evaluation Date of Evaluation: 02/09/18 Time of Evaluation: 11:31 - Subjective Subjective: GI Progress Note Dr Butcher Pt was seen and examined at bedside. Pt is s/p rt hemicolectomy POD#2. Pain well controlled no acute events overnight. Denies fevers chills chest pain nausea vomiting diarrhea. Objective - Vital Signs/Intake and Output Vital Signs (last 24 hours): Temp Pulse Resp BP Pulse Ox 97.5 F L 72 19 127/63 98 02/09/18 08:33 02/09/18 08:33 02/09/18 08:33 02/09/18 08:33 02/09/18 08:33 Intake and Output: 02/09/18 02/09/18 06:59 18:59 Intake Total 2725 0 Output Total 500 975 Balance 2225 -975 - Medications Medications: Current Medications Acetaminophen (Tylenol 325mg Tab) 650 mg PO Q6H PRN PRN Reason: Fever >100.4 F Benztropine Mesylate (Cogentin) 1 mg PO DAILY [facility] Last Admin: 02/09/18 09:14 Dose: 1 mg Cyanocobalamin (Vitamin B12 1000 Mcg Tab) 1,000 mcg PO DAILY [facility] Last Admin: 02/09/18 09:15 Dose: 1,000 mcg Famotidine (Pepcid) 40 mg PO HS [facility] Last Admin: 02/08/18 21:26 Dose: 40 mg Lactated Ringer's (Lactated Ringer's) 1,000 mls @ 120 mls/hr IV .[id number] [facility] Last Admin: 02/08/18 23:29 Dose: 120 mls/hr Morphine Sulfate (Morphine) 4 mg IVP Q4H PRN PRN Reason: Pain, severe (8-10) Last Admin: 02/09/18 08:33 Dose: 4 mg Ondansetron HCl (Zofran Inj) 4 mg IVP Q6H PRN PRN Reason: Nausea/Vomiting Oxycodone HCl (Oxycodone Immediate Release Tab) 5 mg PO Q4 PRN PRN Reason: Pain, moderate (4-7) Risperidone (Risperdal Tab) 2 mg PO BID [facility] PRN Reason: Protocol Last Admin: 02/09/18 09:14 Dose: 2 mg - Labs Labs: 02/09/18 06:10 02/09/18 06:10 PT 14.7 SECONDS (9.4-12.5) H 02/08/18 08:50 INR 1.27 (0.93-1.08) H 02/08/18 08:50 APTT 23.9 Seconds (25.1-36.5) L 02/08/18 08:50 - Constitutional Appears: Non-toxic, No Acute Distress - Head Exam Head Exam: ATRAUMATIC, NORMOCEPHALIC - Eye Exam Eye Exam: EOMI, Normal appearance - Respiratory Exam Respiratory Exam: NORMAL BREATHING PATTERN. absent: Respiratory Distress - Cardiovascular Exam Cardiovascular Exam: REGULAR RHYTHM. absent: Tachycardia - GI/Abdominal Exam GI & Abdominal Exam: Soft. absent: Distended, Tenderness, Rebound - Extremities Exam Extremities Exam: Normal Inspection. absent: Calf Tenderness - Neurological Exam Neurological Exam: Alert, Awake - Psychiatric Exam Psychiatric exam: Normal Affect, Normal Mood - Skin Skin Exam: Dry, Warm Assessment and Plan - Assessment and Plan (Free Text) Assessment: s/p Rt Hemicolectomy POD2 status post EGD/colon peptic ulcer disease ascending colonic lesion s/p ct scan report rectal was thickening Non obstructing 2mm calculi 10 mm non low density mass right hepatic lobe, possible cyst Schizoaffective disorder Anxiety Hepatitis C?, hepatitis panel negative Plan: Monitor H&H incentive spirometry Fu MSI testing for further recommendations NPO Rocephin/flagyl D/W Dr. Hadley Goode PGY2 <Louise Butcher V - Last Filed: 02/09/18 20:01> Objective - Vital Signs/Intake and Output Vital Signs (last 24 hours): Temp Pulse Resp BP Pulse Ox 98.4 F 72 18 132/85 99 02/09/18 17:10 02/09/18 17:10 02/09/18 17:10 02/09/18 17:10 02/09/18 16:00 Intake and Output: 02/09/18 02/09/18 06:59 18:59 Intake Total 2725 325 Output Total 500 975 Balance 2225 -650 - Medications Medications: Current Medications Acetaminophen (Tylenol 325mg Tab) 650 mg PO Q6H PRN PRN Reason: Fever >100.4 F Benztropine Mesylate (Cogentin) 1 mg PO DAILY [facility] Last Admin: 02/09/18 09:14 Dose: 1 mg Cyanocobalamin (Vitamin B12 1000 Mcg Tab) 1,000 mcg PO DAILY [facility] Last Admin: 02/09/18 09:15 Dose: 1,000 mcg Famotidine (Pepcid) 40 mg PO HS [facility] Last Admin: 02/08/18 21:26 Dose: 40 mg Lactated Ringer's (Lactated Ringer's) 1,000 mls @ 80 mls/hr IV .[id number] [facility] Morphine Sulfate (Morphine) 4 mg IVP Q4H PRN PRN Reason: Pain, severe (8-10) Last Admin: 02/09/18 16:16 Dose: 4 mg Ondansetron HCl (Zofran Inj) 4 mg IVP Q6H PRN PRN Reason: Nausea/Vomiting Oxycodone HCl (Oxycodone Immediate Release Tab) 5 mg PO Q4 PRN PRN Reason: Pain, moderate (4-7) Risperidone (Risperdal Tab) 2 mg PO BID [facility] PRN Reason: Protocol Last Admin: 02/09/18 17:10 Dose: 2 mg - Labs Labs: 02/09/18 11:55 02/09/18 06:10 PT 14.7 SECONDS (9.4-12.5) H 02/08/18 08:50 INR 1.27 (0.93-1.08) H 02/08/18 08:50 APTT 23.9 Seconds (25.1-36.5) L 02/08/18 08:50 Attending/Attestation - Attestation I have personally seen and examined this patient.: Yes I have fully participated in the care of the patient.: Yes I have reviewed all pertinent clinical information, including history, physical exam and plan: Yes Notes (Text): Agreed with the above treatment plan as outlined in [facility] 's notes the with the addition of the following drop in hemoglobin and hematocrit postop no obvious melena or hematemesis Abdomen soft surgical incision noticed Labs reviewed Ordered 2 units of packed RBC being. Being transfused Patient does have some partial blunting also slightly increased in intraepithelial lymphocytes rule out celiac disease serology pending. B12 deficiency the level was 214 supplemented In view of his age and the carcinoma MSI test was requested results still pending status post a right colectomy History of gastric ulcerations,HP positive Recommend elective treatment Would recommend to continue PPI Follow closely hemoglobin and hematocrit and transfuse as needed Surgical followup reg drop in Hct probable post surgical Consider bleeding scan if active bleeding 02/09/18 19:57
[2018-02-09 12:03] LABS: HEMOGLOBIN 7.3 g/dL (14.0-18.0); MEAN CELL VOLUME 77.2 fl (80.0-105.0); MEAN CORPUSCULAR HEMOGLOBIN 24.1 pg (25.0-35.0); MEAN CORPUSCULAR HGB CONC 31.2 g/dl (31.0-37.0); PLATELET COUNT 226 10^3/uL (120.0-450.0); RBC 3.03 10^6/uL (3.5-6.1)
--- NOTE | 2018-02-09 13:58 | CARD ---
APPROVED REPORT EKG Measurement Heart [id number] <Conclusion> Normal sinus rhythm T wave abnormality, consider lateral ischemia Abnormal ECG
[2018-02-09] MEDS ORDERED: Lactated Ringer's 1,000 ML IV SCH (15:13)
--- NOTE | 2018-02-09 17:51 | PN ---
DATE: 02/09/2018 SUBJECTIVE: This 37-year-old male was examined on the cardiac pino in the presence of his nurse Flora Shaffer, registered nurse. The patient has persistent anemia, status post partial colectomy for colon cancer. He received 2 units of packed red blood cells yesterday. He has had no episodes of hematemesis or melena. However, today he has a hemoglobin of 7.3 with hematocrit of 23.4 with yesterday's hemoglobin being 7.0 and hematocrit of 22.3. This is despite 2 units of packed red blood cells infused. The patient was reevaluated by Dr. Louise Butcher from GI today. The patient denies any hematemesis or melena and the patient is also being followed by Dr. Kem Oliver from Surgery. He remains in a normal sinus rhythm on the lunchroom monitor and today's temperature is 98.2, respirations 18, pulse 72, blood pressure 118/70 with a pulse ox of 98%. Yesterday, when he was noted to be anemic, a rapid response was called. He was noted to have a troponin of 0.17 that then reached a peak of 0.51 and this morning is 0.33. He denies any chest pain and on EKG was noted to have nonspecific ST-T wave changes. He was seen in consultation by Dr. Jean Morin from Cardiology this morning, who has ordered a 2-D echocardiogram to evaluate wall motion. It should be noted that the patient had an unremarkable 2-D echo preoperatively. PHYSICAL EXAMINATION: GENERAL: The patient is alert and oriented. Denying any fever, chills, chest pain or shortness of breath. VITAL SIGNS: Normal sinus rhythm, temperature 98.2, respirations 18, pulse 72, blood pressure 118/70 with pulse ox 98%. HEENT: Head: Normocephalic, atraumatic. Eyes: No icterus. Ears: Clear. Throat: Noninjected. NECK: Supple. HEART: Regular S1, S2. LUNGS: Clear. ABDOMEN: Soft. Wound site shows clean, dry. Felix intact and no evidence of skin erythema or infection. EXTREMITIES: No clubbing, cyanosis or edema. SKIN: Without rash. NEUROLOGICAL: Intact. PSYCHOLOGICAL: Alert and calm. VASCULAR: Legs warm to touch. LABORATORY DATA: Sodium 138, K 4.2, chloride 104, bicarb 29, BUN 11, creatinine 0.8, random blood sugar 92. Calcium normal 8.7. White count 7000, hemoglobin 7.3, hematocrit 23.4, platelets 226,000. PT/INR 1.27, PTT 23.9. Hepatitis A, B, C serology is negative. IMPRESSION: A 37-year-old male, admitted with severe anemia, iron-deficiency, treated with red blood cell transfusion, also noted to have low levels of vitamin B12, who was found to have a gastric ulcer on endoscopy and a colon cancer on colonoscopy, who successfully underwent a partial colectomy for colon cancer and postoperatively has required blood cell transfusion for severe anemia and had a rapid response with EKG changes and positive troponins in the absence of any chest pain or shortness of breath. PLAN: The plan at present is to transfuse the patient an additional 2 units. He continues on Cogentin 1 mg p.o. daily, Pepcid 40 mg p.o. at bedtime, Risperdal 2 mg p.o. b.i.d., Cogentin 1 mg p.o. daily, Tylenol 650 p.o. every 6 hours p.r.n. temperature, vitamin B12 at 1000 mcg p.o. daily, Zofran 4 mg IV every 6 hours p.r.n. nausea, vomiting and morphine 4 mg IV every 4 hours p.r.n. severe pain. He was instructed on the use of incentive spirometry, has an order for nasal O2 p.r.n. He has been advanced to a liquid diet by Surgery and will have physical therapy started as able. The patient has been out of bed to chair, is cooperating with nursing, Surgery and co-consultants from Cardiology and GI. The patient will have repeat electrolytes in a.m. and adjustment of orders and workup based on clinical progress. Greater than 35 minutes was spent in the care and management, review of labs, x-rays, orders and discussion of this patient's care with himself, nursing, Surgery, GI and Cardiology. All questions were answered. Genia Pang MD MTDD
--- NOTE | 2018-02-09 23:38 | CON ---
DATE: 02/09/2018 REQUESTING PHYSICIAN: Genia Pang MD. REASON FOR CONSULTATION: Elevated cardiac enzymes. HISTORY: This is a 37-year-old man with a history of schizophrenia and severe anemia who was admitted with recurrent severe anemia and a hemoglobin of 5.5. He underwent GI evaluation and was found to have a large right-sided colonic mass. He underwent hemicolectomy 2 days ago and postoperatively, he was noted to have elevated cardiac enzymes. Cardiac evaluation was requested. He denies any prior cardiac history. He denies any chest pain. He states he is not hypertensive or diabetic. He smokes rarely. His cholesterol is reportedly normal. He states there is no family history of premature heart disease. PAST MEDICAL HISTORY: His past history is notable for schizoaffective disorder. He also has history of chronic anemia and he has undergone transfusion in the past. CURRENT MEDICATIONS: Include Cogentin, IV fluids, morphine p.r.n., oxycodone p.r.n., Pepcid and Risperdal. ALLERGIES: NONE. SOCIAL HISTORY: He smokes occasionally. He denies alcohol use. FAMILY HISTORY: Both parents reportedly alive and well. There is no family history of premature heart disease. REVIEW OF SYSTEMS: A 10-point review of systems is otherwise unremarkable. He does have some postoperative pain. PHYSICAL EXAMINATION: GENERAL: He is a frail-appearing young man. VITAL SIGNS: His blood pressure is 126/62 with a pulse of 72 and sinus respirations 14. He is afebrile. HEENT: Normocephalic, atraumatic. NECK: Supple. No JVD noted. CHEST: Clear breath sounds bilaterally. HEART: PMI in normal position. No pathological murmur or gallops noted. ABDOMEN: Soft with hypoactive bowel sounds and moderate diffuse tenderness. EXTREMITIES: No clubbing, cyanosis or edema. SKIN: Warm and dry. PSYCHIATRIC: Affect appears normal at present. NEUROLOGIC: Alert and oriented x3. No gross motor or sensory is appreciable. DIAGNOSTIC DATA: Potassium is 4.2, BUN and creatinine 11 and 0.8. White count 7.2, hemoglobin and hematocrit 7.0 and 22.3 with an MCV of 76, platelet count 225,000. Initial troponin 0.51, repeat is 0.50 and third set is 0.33. Electrocardiogram reveals sinus rhythm with slight T-wave inversions in inferolateral leads as compared to his baseline tracing, which appeared normal. An echocardiogram performed last week revealed sinus rhythm with mild concentric LVH, normal LV systolic function. IMPRESSION: 1. Mildly elevated troponin in the setting of severe anemia and postoperative state likely due to mild demand ischemia, doubt significant obstructive coronary artery disease as a cause. 2. Adenocarcinoma of the colon, status post hemicolectomy. 3. History of schizoaffective disorder. 4. Rest of problems as noted. RECOMMENDATIONS: Followup electrocardiogram will be planned for the morning. Repeat enzymes will be planned as well. As he appears stable with no symptoms at present, I would not add aspirin or beta sedrick at the present time. An eventual cardiac stress test can be planned after recovery from surgery. Thank you for this consultation. We will be happy to follow along through his hospital course as needed. Jean Morin MD
[2018-02-10] MEDS: Morphine 4 mg/ml ISec IVP PRN ×2 (00:51→05:54)
[2018-02-10 06:37] LABS: BASO # 0.01 K/mm3 (0.0-2.0); BASO % 0.1 % (0.0-3.0); EOS # 0.2 (0.0-0.7); EOS % 2.8 % (1.5-5.0); GRAN # 4.85 (1.4-6.5); GRAN % 72.3 % (50.0-68.0); LYMPH # 0.7 (1.2-3.4); LYMPH % 10.7 % (22.0-35.0); MEAN CELL VOLUME 78.9 fl (80.0-105.0); MEAN CORPUSCULAR HEMOGLOBIN 25.7 pg (25.0-35.0); MEAN CORPUSCULAR HGB CONC 32.5 g/dl (31.0-37.0); MONO % 14.1 % (1.0-6.0); PLATELET COUNT 286 10^3/uL (120.0-450.0); WHITE BLOOD COUNT 6.7 10^3/ul (4.5-11.0)
[2018-02-10 06:39] LABS: HEMOGLOBIN 9.5 g/dL (14.0-18.0)
[2018-02-10 07:28] LABS: BLOOD UREA NITROGEN 6 mg/dL (7-21); CALCIUM 9.7 mg/dL (8.4-10.5); GFR AFRICAN-AMERICAN > 60; GFR NON-AFRICAN AMERICAN > 60; TROPONIN I 0.14 ng/mL
--- NOTE | 2018-02-10 09:23 | CP.PCM.PN ---
Subjective - Date & Time of Evaluation Date of Evaluation: 02/10/18 Time of Evaluation: 07:00 - Subjective Subjective: Stable on 3R. No CP or SOB V/S noted. RSR PE: Lungs: clear Cor.: S1S2 Abd.: soft Ext.: no edema Neuro.: alert I/O= 1790/4300 Labs noted: H/H = 9.5/29, trops noted. Today = 0.14 ECG 02/09: RSR, LVH, ST changes, no change Objective - Vital Signs/Intake and Output Vital Signs (last 24 hours): Temp Pulse Resp BP Pulse Ox 97.3 F L 75 19 126/77 96 02/10/18 01:00 02/10/18 06:00 02/10/18 01:00 02/10/18 01:00 02/10/18 01:00 Intake and Output: 02/10/18 02/10/18 06:59 18:59 Intake Total 1465 Output Total 3400 Balance -1935 - Medications Medications: Current Medications Acetaminophen (Tylenol 325mg Tab) 650 mg PO Q6H PRN PRN Reason: Fever >100.4 F Benztropine Mesylate (Cogentin) 1 mg PO DAILY [facility] Last Admin: 02/09/18 09:14 Dose: 1 mg Cyanocobalamin (Vitamin B12 1000 Mcg Tab) 1,000 mcg PO DAILY [facility] Last Admin: 02/09/18 09:15 Dose: 1,000 mcg Famotidine (Pepcid) 40 mg PO HS [facility] Last Admin: 02/09/18 22:06 Dose: 40 mg Lactated Ringer's (Lactated Ringer's) 1,000 mls @ 80 mls/hr IV .[id number] [facility] Last Admin: 02/10/18 01:25 Dose: 80 mls/hr Morphine Sulfate (Morphine) 4 mg IVP Q4H PRN PRN Reason: Pain, severe (8-10) Last Admin: 02/10/18 05:54 Dose: 4 mg Ondansetron HCl (Zofran Inj) 4 mg IVP Q6H PRN PRN Reason: Nausea/Vomiting Oxycodone HCl (Oxycodone Immediate Release Tab) 5 mg PO Q4 PRN PRN Reason: Pain, moderate (4-7) Risperidone (Risperdal Tab) 2 mg PO BID [facility] PRN Reason: Protocol Last Admin: 02/09/18 17:10 Dose: 2 mg - Labs Labs: 02/10/18 05:45 02/10/18 05:45 PT 14.7 SECONDS (9.4-12.5) H 02/08/18 08:50 INR 1.27 (0.93-1.08) H 02/08/18 08:50 APTT 23.9 Seconds (25.1-36.5) L 02/08/18 08:50 Assessment and Plan - Assessment and Plan (Free Text) Assessment: S/P resection of large colonic mass/adenocarcinoma Severe anemia/S/P transfusions + trops/Abn ECG Schizoaffective disorder Smoker Plan: As per GI, Surgery, Heme, Psych., Dr. Pang Check echo for wall motion abn post op Nuclear ETT electively once stabilized Monitor H/H
--- NOTE | 2018-02-10 10:28 | CP.PCM.PN ---
Subjective - Date & Time of Evaluation Date of Evaluation: 02/10/18 Time of Evaluation: 10:25 - Subjective Subjective: Surgery: Dr. Oliver Patient reports feeling better today. His pain is controlled with medication. He denies n/v/f/c. He denies flatus or BM. He has not been OOB. Objective - Vital Signs/Intake and Output Vital Signs (last 24 hours): Temp Pulse Resp BP Pulse Ox 99.3 F 69 18 114/70 98 02/10/18 09:55 02/10/18 09:55 02/10/18 09:55 02/10/18 09:55 02/10/18 09:55 Intake and Output: 02/10/18 02/10/18 06:59 18:59 Intake Total 1465 Output Total 3400 Balance -1935 - Medications Medications: Current Medications Acetaminophen (Tylenol 325mg Tab) 650 mg PO Q6H PRN PRN Reason: Fever >100.4 F Benztropine Mesylate (Cogentin) 1 mg PO DAILY [facility] Last Admin: 02/10/18 09:46 Dose: 1 mg Cyanocobalamin (Vitamin B12 1000 Mcg Tab) 1,000 mcg PO DAILY [facility] Last Admin: 02/10/18 09:47 Dose: 1,000 mcg Famotidine (Pepcid) 40 mg PO HS [facility] Last Admin: 02/09/18 22:06 Dose: 40 mg Lactated Ringer's (Lactated Ringer's) 1,000 mls @ 80 mls/hr IV .[id number] [facility] Last Admin: 02/10/18 01:25 Dose: 80 mls/hr Morphine Sulfate (Morphine) 4 mg IVP Q4H PRN PRN Reason: Pain, severe (8-10) Last Admin: 02/10/18 05:54 Dose: 4 mg Ondansetron HCl (Zofran Inj) 4 mg IVP Q6H PRN PRN Reason: Nausea/Vomiting Oxycodone HCl (Oxycodone Immediate Release Tab) 5 mg PO Q4 PRN PRN Reason: Pain, moderate (4-7) Risperidone (Risperdal Tab) 2 mg PO BID [facility] PRN Reason: Protocol Last Admin: 02/10/18 09:46 Dose: 2 mg - Labs Labs: 02/10/18 05:45 03/22/18 05:45 PT 14.7 SECONDS (9.4-12.5) H 02/08/18 08:50 INR 1.27 (0.93-1.08) H 02/08/18 08:50 APTT 23.9 Seconds (25.1-36.5) L 02/08/18 08:50 - Constitutional Appears: Non-toxic, No Acute Distress - Head Exam Head Exam: ATRAUMATIC, NORMOCEPHALIC - Eye Exam Eye Exam: EOMI, Normal appearance - ENT Exam ENT Exam: Mucous Membranes Moist - Respiratory Exam Respiratory Exam: NORMAL BREATHING PATTERN. absent: Respiratory Distress - Cardiovascular Exam Cardiovascular Exam: REGULAR RHYTHM. absent: Tachycardia - GI/Abdominal Exam GI & Abdominal Exam: Soft. absent: Distended, Guarding, Tenderness, Rebound Additional comments: Onq removed. Incision CDI with staple closure - Neurological Exam Neurological Exam: Alert, Awake - Skin Skin Exam: Dry, Warm Assessment and Plan - Assessment and Plan (Free Text) Assessment: 37 y/o male s/p right hemicolectomy for colon mass POD3 Plan: -cont CLD -monitoring for return of bowel function -OOB -repeat labs in am -ok for dvt chemo ppx -IS use -further recs per Dr. Benito Lockhart PGY3
[2018-02-10] MEDS ORDERED: Potassium Ch 20mEq in D5-1/2NS 1,000 ML IV SCH (10:45)
[2018-02-10] MEDS: oxyCODONE 5 mg Immediate Release Tab PO PRN (10:48)
[2018-02-10] MEDS: Enoxaparin 40 mg Syringe SC SCH (13:23)
--- NOTE | 2018-02-10 17:25 | PCM.PYCHPN ---
Psychiatric Progress Note - Psychiatric Progress Note Patient seen today, length of contact: 25 Patient Chief Complaint: Patient had been admitted to the ICU in a weakened condition after being significantly anemic. He has a psychiatric history of an apparent schizoaffective disorder. Initial psychiatric consultation of Dr. michaels twice a day and reviewed. Chart reviewed. Patient interviewed. The patient has been under the care of his private psychiatrist, Dr. finn STEWART for none defined period of time. Indicates that this is not a [facility]. Patient has been hospitalized approximately 5 times. Presently does not appear to be in any acute distress. Has long here and bearded. He also has multiple tattoos. Patient indicates that he is a participant in the [facility] program and attends an IOP 2 hours a day 2 days a week. Lives also in a assisted living situation. Does not presently appear to be in any acute distress. Not overtly homicidal suicidal or psychotic. Problems Identified/Issues Discussed: As noted above. Patient has a psychiatric history of approximately 5-6 years duration ( according to the patient). His maintained on [facility] by his psychiatrist Dr. suarez On February 03 discussed with patient with patient who is recently diagnosed colon cancer. Patient appears appropriate and concerned. Discussed with him the probable need for postsurgical care greater than is presently available to him has no family around. Does have siblings in the area but is not speaking to them. That is homeless and living in a homeless prison. I think the patient will need to be in some sort of a convalescent or supervised or assisted living situation during the recovery phase of his surgery for his abdominal tumor. The patient is surprisingly accepting and appropriately dealing with this new diagnosis. Medical Problems: Patient admitted with significant anemia. His hemoglobin and hematocrit have increased significantly since admission. Laboratory results reviewed. Diagnostic Results: Hemoglobin now 11.1 hematocrit 36.3. This is a significant improvement from his time of admission. 0. A urine drug screen was negative. DSM 5 Symptoms Update: Patient alert, oriented to 3 spheres. Does not appear to be agitated or overtly psychotic. He does complain of some physical discomfort of his left abdominal area, explaining to me the tumors that were inserted and causing such discomfort I have discussed with patient what will happen to him upon his discharge. Indicates that he gets along well with the car wash manager of the housing environment that he lives in but I am concerned about the ability of this patient to care for himself postsurgically. I have requested social work to begin more thoroughly to the pending living environment the patient will be entering into upon his discharge here. I would not necessarily take at face value the patient's description that he can take care of himself, that his landlord is trying to accommodate his needs and that there is no concern about his medical or psychiatric) follow-up appointment discharge from the hospital here. Medication Change: No Medical Record Reviewed: Yes Consults ordered or reviewed: Reviewed Have reviewed chart since my last visitation. Mental Status Examination - Cognitive Function Orientation: Person, Place, Situation, Time Memory: Intact Attention: WNL Concentration: WNL Association: [facility] Fund of Knowledge: [facility] Decription of patient's judgement and insights: Aware of reasons why he is presently hospitalized. Presents a reasonably concise psychiatric history. - Mood Mood: Neutral - Affect Affect: Blunted - Speech Speech: Appropriate, Soft - Formal Thought Process Formal Thought Process: No Impairment, Other (Not very insightful. Exhibits much denial) - Suicidal Ideation Suicidal Ideation: No - Homicidal Ideation Homicidal Ideation: No Goal/Treatment Plan - Goal/Treatment Plan Progress Toward Problem(s) and Goals/Treatment Plan: Will have social work contact his rash worker with regard to informing them of his present status and preparation for his ultimate discharge and return to their IOP program. We'll redouble efforts to get social work involved in case management feeling with his postsurgical recovery. A. Otherwise he will be going to a prison living by himself and not able to care for himself.
[2018-02-10] MEDS: oxyCODONE 10 mg Immediate Release Tab PO PRN (20:02)
--- NOTE | 2018-02-10 21:12 | PN ---
DATE: 02/10/2018 SUBJECTIVE: This 37-year-old male was examined on the cardiac pino and this case was reviewed in detail with himself; his nurse Deborah Nugent, registered nurse; Dr. Soren Contreras from Cardiology; and Dr. Oliver from Surgery. The patient remained alert, and cooperative with medical and nursing staff. He denies any fever, chills, chest pain, shortness of breath, and there have been no reports of hematemesis or melena. He stopped drinking his clear liquid diet earlier this morning because of nausea, but denied any vomiting or hematemesis. He did require 4 units of packed red blood cells postoperatively and hemoglobin initially was 7 and today is reported to be 9.5. PHYSICAL EXAMINATION: VITAL SIGNS: Temperature is 98.8, respirations 18, pulse 69, and blood pressure 117/74 with a pulse ox of 100% on room air. HEENT: Head: Normocephalic, atraumatic. Eyes: No icterus. Ears: Clear. Throat: Noninjected. NECK: Supple. HEART: Regular S1, S2. LUNGS: Clear. ABDOMEN: Soft. Wound site, clean and dry. [place] intact. SKIN: Without rash. VASCULAR: Legs warm to touch. PSYCHOLOGICAL: Alert and calm. NEUROLOGICAL: Grossly intact. LABORATORY DATA: White count 6700, hemoglobin 9.5, hematocrit 29.2, platelets 286,000. PT/INR 1.27, PTT 23.9. Sodium 137, K 4.0, chloride 99, bicarb 31, BUN 6, creatinine 0.8, random blood sugar 89. Calcium normal at 9.7. Phosphorous is normal 3.9. Magnesium normal 1.9. Troponin 0.14 today; previous 0.33 yesterday; and 0.51 on 02/08/2018. Patient's serology testing for celiac was reviewed and shows no evidence of celiac disease. Hepatitis A, B, C serologies are negative and a 2-D echocardiogram performed this morning is pending. IMPRESSION: A 37-year-old male admitted with shortness of breath, advanced severe iron-deficiency anemia that required blood cell transfusion and on endoscopy, patient was found to have a gastric ulcer and on colonoscopy, colon cancer that required partial colectomy and postoperative course complicated by severe anemia with rapid response called, which showed EKG changes and elevated troponin with normal CPK in a 37-year-old gentleman with a normal 2-D echo preop. PLAN: The plan as discussed with the patient, nursing, and co-consultants will be to await the results of 2-D echocardiogram and the timing of Persantine thallium stress test by Cardiology. He is scheduled for basic metabolic panel and CBC in the a.m. and stool for C. diff toxin for completeness sake has been received by the microbiology lab. The surgical pathology report from his partial colectomy remains pending and he continues on Cogentin 1 mg p.o. daily, Lovenox 40 mg subcu daily, Pepcid 40 mg p.o. at bedtime, oxycodone 5 mg p.o. every 4hours p.r.n. pain, Risperdal 2 mg p.o. b.i.d., vitamin B12 at 1000 mcg p.o. daily, and Zofran 4 mg IV every 6 hours p.r.n. nausea and vomiting. His diet will be advanced as per Surgery. He continues on incentive spirometry and nasal O2 p.r.n. He has an order for physical therapy for ambulation safety and ultimate plan will be for discharge with outpatient monitoring with wind operations supervisor/oncologist, Dr. Trivedi, for management of colon cancer when stable. The patient will also need a Prevpac of antibiotics for H. Pylori noted on his gastric ulcer biopsy and the timing of this will be discussed with Dr. Louise Butcher given his postoperative ileus and inability to tolerate oral diet and medication at present. Greater than 35 minutes was spent in the care management, review of labs, x-rays, meds, orders, and discussion with co-consultants and nursing as well as the patient. All questions were answered. Genia Pang MD ALESHA
--- NOTE | 2018-02-11 02:36 | PN ---
DATE: 02/10/2018 SUBJECTIVE: This patient was seen and evaluated earlier today. Patient received blood transfusion yesterday. PHYSICAL EXAMINATION: VITAL SIGNS: Patient's temperature is 98.8, pulse 69, blood pressure 117/74, respirations 18, O2 saturation 100%. HEENT: Atraumatic and anicteric. NECK: Supple. HEART: S1 and S2 heard. LUNGS: Bilateral air entry present. ABDOMEN: Soft. Surgical wound noticed. EXTREMITIES: No edema. No cyanosis. NEUROLOGIC: Alert, oriented. Moves all the extremities. LABORATORY DATA: Hemoglobin is 9.5, hematocrit 29.2, WBC 6.7, platelets 286. Chemistry is essentially unremarkable. IMPRESSION: 1. This 37-year-old patient admitted with severe anemia, gastric ulcer. 2. Helicobacter pylori positive. 3. Right hernia present. 4. Colon carcinoma of ascending colon, status post right hemicolectomy. RECOMMENDATIONS: Follow up MSI, follow up of the pathology for the blood test and advance diet as per Surgery. Follow up of the hemoglobin and hematocrit. Continue the PPI. Thank you very much. Louise Butcher MD MTDD
[2018-02-11] MEDS: oxyCODONE 10 mg Immediate Release Tab PO PRN ×2 (06:06→17:25)
[2018-02-11 07:15] LABS: BASO # 0.01 K/mm3 (0.0-2.0); BASO % 0.1 % (0.0-3.0); EOS # 0.1 (0.0-0.7); EOS % 0.5 % (1.5-5.0); GRAN # 7.75 (1.4-6.5); HEMOGLOBIN 11.3 g/dL (14.0-18.0); LYMPH % 10.2 % (22.0-35.0); MEAN CELL VOLUME 79.1 fl (80.0-105.0); MEAN CORPUSCULAR HGB CONC 32.8 g/dl (31.0-37.0); MONO # 0.8 (0.1-0.6); MONO % 8.2 % (1.0-6.0); PLATELET COUNT 443 10^3/uL (120.0-450.0); RBC 4.35 10^6/uL (3.5-6.1); WHITE BLOOD COUNT 9.6 10^3/ul (4.5-11.0)
[2018-02-11 07:50] LABS: BLOOD UREA NITROGEN 13 mg/dL (7-21); CALCIUM 10.1 mg/dL (8.4-10.5); GFR AFRICAN-AMERICAN > 60; GFR NON-AFRICAN AMERICAN > 60
--- NOTE | 2018-02-11 09:13 | CARD ---
APPROVED REPORT EXAM: Two-dimensional and M-mode echocardiogram with Doppler and color Doppler. INDICATION R/O NC LV WALL MOTION 2D DIMENSIONS Left Atrium (2D)4.0 (1.6-4.0cm)IVSd1.1 (0.7-1.1cm) LVDd5.2 (3.9-5.9cm)PWd1.0 (0.7-1.1cm) LVDs3.4 (2.5-4.0cm)FS (%) 33.6 % LVEF (%)62.1 (>50%) M-Mode DIMENSIONS Aortic Root3.00 (2.2-3.7cm)Aortic Cusp Exc.1.70 (1.5-2.0cm) Aortic Valve AoV Peak Uterbchz014.0cm/Sudha Peak GR.14mmHg Mitral Valve MV E Hlaovfhg27.9cm/sMV A Yopejidx04.8cm/sE/A ratio1.2 TDI E/Lateral E'0.0E/Medial E'0.0 Tricuspid Valve TR Peak Opdihljs100zd/sRAP IAXBKLHI61geDhRH Peak Gr.19mmHg [id number] LEFT VENTRICLE The left ventricle is normal size. There is normal left ventricular wall thickness. The left ventricular function is normal. The left ventricular ejection fraction is within the normal range. There is normal LV segmental wall motion. RIGHT VENTRICLE The right ventricle is normal size. The right ventricular systolic function is normal. ATRIA The left atrium is borderline dilated. The right atrium size is normal. The interatrial septum is intact with no evidence for an atrial septal defect. AORTIC VALVE The aortic valve is normal in structure. No aortic regurgitation is present. There is no aortic valvular stenosis. MITRAL VALVE The mitral valve is normal in structure. There is no mitral valve regurgitation noted. TRICUSPID VALVE The tricuspid valve is normal in structure. There is mild tricuspid regurgitation. GREAT VESSELS The aortic root is normal in size. The IVC is normal in size and collapses >50% with inspiration. PERICARDIAL EFFUSION There is no pleural effusion. There is no pericardial effusion. <Conclusion> Borderline LA enlargement. Normal LV size and systolic function. No wall motion abnormalities seen. Mildl TR.
[2018-02-11] MEDS: Enoxaparin 40 mg Syringe SC SCH (09:18)
[2018-02-11] MEDS: oxyCODONE 5 mg Immediate Release Tab PO PRN (09:23)
--- NOTE | 2018-02-11 10:20 | CP.PCM.PN ---
<Brooke Viveros - Last Filed: 02/11/18 10:48> Subjective - Date & Time of Evaluation Date of Evaluation: 02/11/18 Time of Evaluation: 09:25 - Subjective Subjective: GI Progress Note Dr. Butcher Pt was seen and examined at bedside. Pt is POD 4. Pt denied any acute complaints at this time. Pt is tolerating po intake. Admitted BM. IS at bedside. Pt is OOB. Pt is s/p 4 units pRBCs postop. Pt denied fever, chills, sob, chest pains, abdominal pains, nausea, vomiting, dysuria, or signs of active bleeding. Objective - Vital Signs/Intake and Output Vital Signs (last 24 hours): Temp Pulse Resp BP Pulse Ox 98.2 F 68 20 118/81 96 02/11/18 06:00 02/11/18 06:00 02/11/18 06:00 02/11/18 06:00 02/11/18 06:00 Intake and Output: 02/11/18 02/11/18 06:59 18:59 Intake Total 1160 Output Total 1450 Balance -290 - Medications Medications: Current Medications Acetaminophen (Tylenol 325mg Tab) 650 mg PO Q6H PRN PRN Reason: Fever >100.4 F Benztropine Mesylate (Cogentin) 1 mg PO DAILY [facility] Last Admin: 02/11/18 09:18 Dose: 1 mg Chlorpromazine (Thorazine) 25 mg PO Q6 [facility] PRN Reason: Protocol Cyanocobalamin (Vitamin B12 1000 Mcg Tab) 1,000 mcg PO DAILY [facility] Last Admin: 02/11/18 09:19 Dose: 1,000 mcg Enoxaparin Sodium (Lovenox) 40 mg SC DAILY [facility] PRN Reason: Protocol Last Admin: 02/11/18 09:18 Dose: 40 mg Famotidine (Pepcid) 40 mg PO HS [facility] Last Admin: 02/10/18 21:24 Dose: 40 mg Ondansetron HCl (Zofran Inj) 4 mg IVP Q6H PRN PRN Reason: Nausea/Vomiting Oxycodone HCl (Oxycodone Immediate Release Tab) 5 mg PO Q4 PRN PRN Reason: Pain, moderate (4-7) Last Admin: 02/11/18 09:23 Dose: 5 mg Oxycodone HCl (Oxycodone Immediate Release Tab) 10 mg PO Q4 PRN PRN Reason: Pain, severe (8-10) Last Admin: 02/11/18 06:06 Dose: 10 mg Risperidone (Risperdal Tab) 2 mg PO BID [facility] PRN Reason: Protocol Last Admin: 02/11/18 09:18 Dose: 2 mg - Labs Labs: 02/11/18 06:30 02/11/18 06:30 PT 14.7 SECONDS (9.4-12.5) H 02/08/18 08:50 INR 1.27 (0.93-1.08) H 02/08/18 08:50 APTT 23.9 Seconds (25.1-36.5) L 02/08/18 08:50 - Constitutional Appears: No Acute Distress - Head Exam Head Exam: ATRAUMATIC, NORMAL INSPECTION, NORMOCEPHALIC - Eye Exam Eye Exam: EOMI, Normal appearance, PERRL Pupil Exam: NORMAL ACCOMODATION, PERRL - ENT Exam ENT Exam: Mucous Membranes Moist, Normal Exam - Respiratory Exam Respiratory Exam: Clear to Ausculation Bilateral, NORMAL BREATHING PATTERN - Cardiovascular Exam Cardiovascular Exam: REGULAR RHYTHM, +S1, +S2. absent: Murmur - GI/Abdominal Exam GI & Abdominal Exam: Soft, Tenderness (to site of incision), Normal Bowel Sounds Additional comments: CDI to abdomen - Neurological Exam Neurological Exam: Alert, Awake, CN II-XII Intact, Normal Gait, Oriented x3 - Psychiatric Exam Psychiatric exam: Normal Affect, Normal Mood - Skin Skin Exam: Dry, Intact, Normal Color, Warm Assessment and Plan - Assessment and Plan (Free Text) Assessment: s/p Rt Hemicolectomy POD4 positive for H pylori status post EGD/colon peptic ulcer disease ascending colonic lesion s/p ct scan report rectal was thickening Non obstructing 2mm calculi 10 mm non low density mass right hepatic lobe, possible cyst Schizoaffective disorder Anxiety hepatitis panel negative Plan: Monitor H&H, s/p 4 u pRBCs post op, stable FU Cdiff incentive spirometry Fu MSI testing for further recommendations Diet as tolerated as per surgery OOB Triple therapy for H. Pylori once further stable outpt GI/DVT ppx reviewed Rocephin/flagyl Discussed with Dr. Butcher <Louise Butcher V - Last Filed: 02/11/18 23:50> Objective - Vital Signs/Intake and Output Vital Signs (last 24 hours): Temp Pulse Resp BP Pulse Ox 98.3 F 77 18 113/68 94 L 02/11/18 16:00 02/11/18 18:00 02/11/18 16:00 02/11/18 16:00 02/11/18 16:00 Intake and Output: 02/11/18 02/12/18 18:59 06:59 Intake Total 780 Output Total 1500 Balance -720 - Medications Medications: Current Medications Acetaminophen (Tylenol 325mg Tab) 650 mg PO Q6H PRN PRN Reason: Fever >100.4 F Benztropine Mesylate (Cogentin) 1 mg PO DAILY [facility] Last Admin: 02/11/18 09:18 Dose: 1 mg Chlorpromazine (Thorazine) 25 mg PO Q6 [facility] PRN Reason: Protocol Last Admin: 02/11/18 17:25 Dose: 25 mg Cyanocobalamin (Vitamin B12 1000 Mcg Tab) 1,000 mcg PO DAILY [facility] Last Admin: 02/11/18 09:19 Dose: 1,000 mcg Enoxaparin Sodium (Lovenox) 40 mg SC DAILY [facility] PRN Reason: Protocol Last Admin: 02/11/18 09:18 Dose: 40 mg Famotidine (Pepcid) 40 mg PO HS [facility] Last Admin: 02/11/18 21:12 Dose: 40 mg Ondansetron HCl (Zofran Inj) 4 mg IVP Q6H PRN PRN Reason: Nausea/Vomiting Oxycodone HCl (Oxycodone Immediate Release Tab) 5 mg PO Q4 PRN PRN Reason: Pain, moderate (4-7) Last Admin: 02/11/18 09:23 Dose: 5 mg Oxycodone HCl (Oxycodone Immediate Release Tab) 10 mg PO Q4 PRN PRN Reason: Pain, severe (8-10) Last Admin: 02/11/18 17:25 Dose: 10 mg Risperidone (Risperdal Tab) 2 mg PO BID [facility] PRN Reason: Protocol Last Admin: 02/11/18 17:25 Dose: 2 mg - Labs Labs: 02/11/18 06:30 02/11/18 06:30 PT 14.7 SECONDS (9.4-12.5) H 02/08/18 08:50 INR 1.27 (0.93-1.08) H 02/08/18 08:50 APTT 23.9 Seconds (25.1-36.5) L 02/08/18 08:50 Attending/Attestation - Attestation I have personally seen and examined this patient.: Yes I have fully participated in the care of the patient.: Yes I have reviewed all pertinent clinical information, including history, physical exam and plan: Yes Notes (Text): This is an addendum to GI progress report dictated by the Human Resources Specialist.The patient was seen and examined earlier. Medical records, lab studies, imagings were reviewed. Last 24 hours events reviewed. Agreed with the above treatment plan as outlined in Human Resources Specialist 's notes the with the addition of the following 02/11/18 23:49
--- NOTE | 2018-02-11 12:45 | CP.PCM.PN ---
Subjective - Date & Time of Evaluation Date of Evaluation: 02/11/18 Time of Evaluation: 12:43 - Subjective Subjective: Surgery: Dr. Oliver Pt seen and examined. Resting comfortably in bed. Pain controlled. Pt is passing flatus and having BM. No N/V. Objective - Vital Signs/Intake and Output Vital Signs (last 24 hours): Temp Pulse Resp BP Pulse Ox 98.2 F 98 H 20 118/81 96 02/11/18 06:00 02/11/18 10:00 02/11/18 06:00 02/11/18 06:00 02/11/18 06:00 Intake and Output: 02/11/18 02/11/18 06:59 18:59 Intake Total 1160 Output Total 1450 Balance -290 - Medications Medications: Current Medications Acetaminophen (Tylenol 325mg Tab) 650 mg PO Q6H PRN PRN Reason: Fever >100.4 F Benztropine Mesylate (Cogentin) 1 mg PO DAILY [facility] Last Admin: 02/11/18 09:18 Dose: 1 mg Chlorpromazine (Thorazine) 25 mg PO Q6 [facility] PRN Reason: Protocol Last Admin: 02/11/18 11:45 Dose: 25 mg Cyanocobalamin (Vitamin B12 1000 Mcg Tab) 1,000 mcg PO DAILY [facility] Last Admin: 02/11/18 09:19 Dose: 1,000 mcg Enoxaparin Sodium (Lovenox) 40 mg SC DAILY [facility] PRN Reason: Protocol Last Admin: 02/11/18 09:18 Dose: 40 mg Famotidine (Pepcid) 40 mg PO [facility] Last Admin: 02/10/18 21:24 Dose: 40 mg Ondansetron HCl (Zofran Inj) 4 mg IVP Q6H PRN PRN Reason: Nausea/Vomiting Oxycodone HCl (Oxycodone Immediate Release Tab) 5 mg PO Q4 PRN PRN Reason: Pain, moderate (4-7) Last Admin: 02/11/18 09:23 Dose: 5 mg Oxycodone HCl (Oxycodone Immediate Release Tab) 10 mg PO Q4 PRN PRN Reason: Pain, severe (8-10) Last Admin: 02/11/18 06:06 Dose: 10 mg Risperidone (Risperdal Tab) 2 mg PO BID [facility] PRN Reason: Protocol Last Admin: 02/11/18 09:18 Dose: 2 mg - Labs Labs: 02/11/18 06:30 02/11/18 06:30 PT 14.7 SECONDS (9.4-12.5) H 02/08/18 08:50 INR 1.27 (0.93-1.08) H 02/08/18 08:50 APTT 23.9 Seconds (25.1-36.5) L 02/08/18 08:50 - Constitutional Appears: Non-toxic, No Acute Distress - Head Exam Head Exam: ATRAUMATIC, NORMOCEPHALIC - Eye Exam Eye Exam: EOMI - ENT Exam ENT Exam: Mucous Membranes Moist - Neck Exam Neck Exam: Full ROM - Respiratory Exam Respiratory Exam: NORMAL BREATHING PATTERN. absent: Accessory Muscle Use, Respiratory Distress - GI/Abdominal Exam GI & Abdominal Exam: Soft, Tenderness (emanuel-incisional ). absent: Distended, Firm, Guarding, Rigid, Rebound Additional comments: midline incision C/D/I w. farrah in place - Extremities Exam Extremities Exam: absent: Calf Tenderness, Pedal Edema - Neurological Exam Neurological Exam: Alert, Awake, Oriented x3 - Psychiatric Exam Psychiatric exam: Normal Affect, Normal Mood Assessment and Plan - Assessment and Plan (Free Text) Assessment: 37 y/o male s/p right hemicolectomy for colon mass POD4 -Will advance diet to full liquid -continue w. pain meds -encourage OOB to chair -PT/OT as tolerated -d/w attending Zeyaoitis PGY3
--- NOTE | 2018-02-11 12:57 | PN ---
DATE: 02/11/2018 SUBJECTIVE: The patient is seen lying in bed on telemetry. He is feeling better. He has been ambulating. His appetite is improved. He is tolerating solid food. He denies any chest pain. CURRENT MEDICATIONS: Include Cogentin, Lovenox, oxycodone, Pepcid, Risperdal, Thorazine. OBJECTIVE: GENERAL: He is an young man, appears clinically improved. VITAL SIGNS: His blood pressure is 118/80 with a pulse of 90 and sinus, respirations are 16. He is afebrile. HEENT: No JVD. CHEST: Clear to auscultation and percussion. HEART: PMI in normal position. No pathological murmur or gallops noted. ABDOMEN: Soft. Bowel sounds are present. Mild tenderness is noted. EXTREMITIES: No edema. DIAGNOSTIC DATA: Potassium is 4.0, BUN and creatinine 13 and 0.8. White count 9.6, hemoglobin and hematocrit 11.3 and 34.4 with a platelet count of 443,000. Echocardiogram was reviewed and was basically unchanged from before revealing normal LV size and function with no significant valvular abnormalities. No significant wall motion abnormalities noted either. IMPRESSION: 1. Recent mild troponin elevation in the setting of severe anemia and urgent surgery with no clear evidence of significant wall motion abnormalities. Suspect all the above were secondary to demand ischemia. 2. Colon cancer, status post resection. RECOMMENDATIONS: Current management should continue at the present time. Upon recovery from surgery, baseline stress test would be advisable. We will continue to follow and make further recommendations as appropriate. Jean Morin MD
--- NOTE | 2018-02-11 15:54 | PCM.PYCHPN ---
Psychiatric Progress Note - Psychiatric Progress Note Patient seen today, length of contact: 25 Patient Chief Complaint: Patient had been admitted to the ICU in a weakened condition after being significantly anemic. He has a psychiatric history of an apparent schizoaffective disorder. Initial psychiatric consultation of Dr. michaels twice a day and reviewed. Chart reviewed. Patient interviewed. The patient has been under the care of his private psychiatrist, Dr. finn STEWART for none defined period of time. Indicates that this is not a [facility]. Patient has been hospitalized approximately 5 times. Presently does not appear to be in any acute distress. Has long here and bearded. He also has multiple tattoos. Patient indicates that he is a participant in the [facility] program and attends an IOP 2 hours a day 2 days a week. Lives also in a assisted living situation. Does not presently appear to be in any acute distress. Not overtly homicidal suicidal or psychotic. Problems Identified/Issues Discussed: As noted above. Patient has a psychiatric history of approximately 5-6 years duration ( according to the patient). His maintained on [facility] by his psychiatrist Dr. suarez On February 03 discussed with patient with patient who is recently diagnosed colon cancer. Patient appears appropriate and concerned. Discussed with him the probable need for postsurgical care greater than is presently available to him has no family around. Does have siblings in the area but is not speaking to them. That is homeless and living in a homeless longterm. I think the patient will need to be in some sort of a convalescent or supervised or assisted living situation during the recovery phase of his surgery for his abdominal tumor. The patient is surprisingly accepting and appropriately dealing with this new diagnosis. Medical Problems: Patient admitted with significant anemia. His hemoglobin and hematocrit have increased significantly since admission. Laboratory results reviewed. Diagnostic Results: Hemoglobin now 11.1 hematocrit 36.3. This is a significant improvement from his time of admission. 0. A urine drug screen was negative. DSM 5 Symptoms Update: Anus calm. Oriented. No overt signs of psychosis. Case reviewed with nursing and my concern about patient's ability to care for himself independently after discharge. The patient however will be going to the subacute facility which will address his postsurgical needs Medication Change: No Medical Record Reviewed: Yes Mental Status Examination - Cognitive Function Orientation: Person, Place, Situation, Time Memory: Intact Attention: WNL Concentration: WNL Association: WNL Fund of Knowledge: [facility] Decription of patient's judgement and insights: Aware of reasons why he is presently hospitalized. Presents a reasonably concise psychiatric history. - Mood Mood: Neutral - Affect Affect: Blunted - Speech Speech: Appropriate, Soft - Formal Thought Process Formal Thought Process: No Impairment, Other (Not very insightful. Exhibits much denial) - Suicidal Ideation Suicidal Ideation: No - Homicidal Ideation Homicidal Ideation: No Goal/Treatment Plan - Goal/Treatment Plan Progress Toward Problem(s) and Goals/Treatment Plan: Will have social work contact his rash worker with regard to informing them of his present status and preparation for his ultimate discharge and return to their IOP program. We'll redouble efforts to get social work involved in case management feeling with his postsurgical recovery. A. Otherwise he will be going to a longterm living by himself and not able to care for himself. On 823 reviewed patient's clinical condition with nursing Informed the patient will be going to subacute facility; a facility that will take care of his immediate postsurgical convalescent needs.
--- NOTE | 2018-02-11 21:16 | PN ---
DATE: 02/11/2018 SUBJECTIVE: This 37-year-old male was examined at the bedside and this case was reviewed in detail with his nurse, Genia Saunders, registered nurse, as well as outpatient case manager and nurse practitioner, Kera Martinez, registered nurse. The patient remains hospitalized with ongoing problems of postoperative ileus, rectal bleeding, postoperative anemia that required 4 units of packed red blood cells in the setting of colon cancer, history of recent gastric ulcer on endoscopy, and poor p.o. intake postoperatively because of lack of bowel movement and flatus. At present, he denies fever, chills, chest pain, or shortness of breath. He did have a rapid response postoperatively and was noted to have EKG changes and positive troponins; however, a repeat 2-D echocardiogram as reviewed by Dr. Morin from Cardiology on consult shows no acute changes. According to Cardiology, the patient needs to be scheduled for a stress test for completeness sake and he was advised and is in agreement with the above. PHYSICAL EXAMINATION: VITAL SIGNS: At present, his temperature was 98.2, respirations 20, pulse 73, and blood pressure 101/53 with a pulse ox of 97%. HEENT: Head: Normocephalic, atraumatic. Eyes: No icterus. Ears: Clear. Throat: Noninjected. NECK: Supple. HEART: Regular S1, S2. LUNGS: Clear. ABDOMEN: Soft. Wound site clean and dry. EXTREMITIES: Showed no clubbing, no cyanosis, no edema. SKIN: Without rash. NEUROLOGICAL: Intact. PSYCHOLOGICAL: Calm. VASCULAR: Legs warm to touch. LABORATORY DATA: Stool C. diff antigen and toxin are negative. White count 9600, hemoglobin 11.3, hematocrit 34.4, platelets 443,000. Sodium 137, K 4.0, chloride 98, bicarb 30, BUN 13, creatinine 0.8, random blood sugar 108. Previous troponin was 0.33; it is now 0.14. Calcium is normal at 10.1. Random glucose 108. IMPRESSION: A 37-year-old male status post partial colectomy for colon cancer, pathology report pending with postsurgical complications of a rapid response with EKG changes, normal 2D echo, but elevated troponins and postoperative anemia that required an additional 4 units of packed red blood cells in a gentleman with comorbidities of gastric ulcer, paranoid schizophrenia, vitamin D deficiency, and history of iron-deficiency. PLAN: As discussed with patient, nursing, co-consultants from Cardiology, GI and surgery, will be to order physical therapy for reconditioning and gait training while awaiting official pathology report to be reviewed with Dr. Geo Trivedi from Oncology, who will need to outline outpatient chemotherapy plans for this gentleman. At present, he remains on a liquid diet because of hypomotility of bowels. He is ordered to have nasal O2 and incentive spirometry. We will continue on Zofran 4 mg IV every 6 hours p.r.n. nausea or vomiting, vitamin B12 at 1000 mcg p.o. daily, Risperdal 2 mg p.o. b.i.d., Pepcid 40 mg p.o. at bedtime., Lovenox 40 mg subcu daily, and Cogentin 1 mg p.o. daily. As discussed with Psychiatry, patient will need social service intervention regarding placement in [facility] until he can achieve housing given his previous homeless stay and multiple medical problems and deconditioned medical status at present. Greater than 35 minutes was spent in the care, review, discussion, ordering of meds, and discussion with co-consultants and patient today. All questions were answered. Genia Pang MD MTDSanya
--- NOTE | 2018-02-12 08:34 | CP.PCM.PN ---
Subjective - Date & Time of Evaluation Date of Evaluation: 02/12/18 Time of Evaluation: 08:30 - Subjective Subjective: Surgery Pt s&e. NAEON. Report R and pain. Denies F/C/N/V/CP/SOB/dizziness/weakness. Tolerating FLD. + amb. + void. Objective - Vital Signs/Intake and Output Vital Signs (last 24 hours): Temp Pulse Resp BP Pulse Ox 98 F 80 20 121/81 95 02/12/18 08:29 02/12/18 08:29 02/12/18 08:29 02/12/18 08:29 02/12/18 08:29 Intake and Output: 02/12/18 02/12/18 06:59 18:59 Intake Total 780 0 Output Total 1500 Balance -720 0 - Medications Medications: Current Medications Acetaminophen (Tylenol 325mg Tab) 650 mg PO Q6H PRN PRN Reason: Fever >100.4 F Benztropine Mesylate (Cogentin) 1 mg PO DAILY [facility] Last Admin: 02/11/18 09:18 Dose: 1 mg Chlorpromazine (Thorazine) 25 mg PO Q6 [facility] PRN Reason: Protocol Last Admin: 02/12/18 05:10 Dose: 25 mg Cyanocobalamin (Vitamin B12 1000 Mcg Tab) 1,000 mcg PO DAILY [facility] Last Admin: 02/11/18 09:19 Dose: 1,000 mcg Enoxaparin Sodium (Lovenox) 40 mg SC DAILY [facility] PRN Reason: Protocol Last Admin: 02/11/18 09:18 Dose: 40 mg Famotidine (Pepcid) [address] [facility] Last Admin: 02/11/18 21:12 Dose: 40 mg Ondansetron HCl (Zofran Inj) 4 mg IVP Q6H PRN PRN Reason: Nausea/Vomiting Oxycodone HCl (Oxycodone Immediate Release Tab) 5 mg PO Q4 PRN PRN Reason: Pain, moderate (4-7) Last Admin: 02/11/18 09:23 Dose: 5 mg Oxycodone HCl (Oxycodone Immediate Release Tab) 10 mg PO Q4 PRN PRN Reason: Pain, severe (8-10) Last Admin: 02/11/18 17:25 Dose: 10 mg Risperidone (Risperdal Tab) 2 mg PO BID [facility] PRN Reason: Protocol Last Admin: 02/11/18 17:25 Dose: 2 mg - Labs Labs: 02/11/18 06:30 02/11/18 06:30 PT 14.7 SECONDS (9.4-12.5) H 02/08/18 08:50 INR 1.27 (0.93-1.08) H 02/08/18 08:50 APTT 23.9 Seconds (25.1-36.5) L 02/08/18 08:50 - Constitutional Appears: No Acute Distress - Head Exam Head Exam: ATRAUMATIC, NORMAL INSPECTION, NORMOCEPHALIC - Eye Exam Eye Exam: EOMI, Normal appearance, PERRL Pupil Exam: NORMAL ACCOMODATION, PERRL - ENT Exam ENT Exam: Mucous Membranes Moist, Normal Exam - Neck Exam Neck Exam: Full ROM, Normal Inspection. absent: Lymphadenopathy - Respiratory Exam Respiratory Exam: Clear to Ausculation Bilateral, NORMAL BREATHING PATTERN - Cardiovascular Exam Cardiovascular Exam: REGULAR RHYTHM, +S1, +S2. absent: Murmur - GI/Abdominal Exam GI & Abdominal Exam: Soft, Tenderness, Normal Bowel Sounds. absent: Distended, Firm, Guarding, Rigid Additional comments: INcision C/D/I. R abd TTP. - Extremities Exam Extremities Exam: Full ROM, Normal Capillary Refill, Normal Inspection. absent : Joint Swelling, Pedal Edema - Back Exam Back Exam: NORMAL INSPECTION - Neurological Exam Neurological Exam: Alert, Awake, CN II-XII Intact, Normal Gait, Oriented x3 - Psychiatric Exam Psychiatric exam: Normal Affect, Normal Mood - Skin Skin Exam: Dry, Intact, Normal Color, Warm Assessment and Plan - Assessment and Plan (Free Text) Assessment: 37 y/o male s/p right hemicolectomy for colon mass POD5 Path: MLH1 , PMS 2 not expressed. MSH 2, MSH 6 expressed. Microsatelite instability -Will advance diet to Soft -continue w. pain meds -encourage OOB to chair -PT/OT as tolerated -Heme/onc on board -GI on board -Will d/w attending
--- NOTE | 2018-02-12 09:57 | PN ---
DATE: 02/12/2018 SUBJECTIVE: The patient is seen lying in bed on telemetry. He continues to have some incisional pain, but otherwise feels well. MEDICATIONS: His current medications remain Cogentin, Lovenox, oxycodone, Pepcid, risperidone, Thorazine. OBJECTIVE: GENERAL: He is a young man, who appears comfortable at rest. VITAL SIGNS: Blood pressure of 120/80 with pulse of 80, respirations are 14. He is afebrile. HEENT: No JVD. CHEST: Clear to auscultation and percussion. HEART: PMI in normal position. No pathological murmur or gallops noted. ABDOMEN: Soft with mild incisional tenderness. Bowel sounds are present. EXTREMITIES: No edema. DIAGNOSTIC DATA: No blood work pending from this morning. IMPRESSION: 1. Status post recent hemicolectomy for colon cancer. 2. Elevated perioperative cardiac enzymes. Suspect this is due more to demand ischemia and not due to significant coronary artery disease. 3. Recent severe anemia secondary to GI blood loss. RECOMMENDATIONS: His current medications will be continued for now. A pre discharge stress test has been advised. This will be arranged for next week with pharmacologic infusion. At the present time, I believe it is reasonable to withhold any further cardiac medications pending his stress test results. Increased activity is advised. We will follow along as needed. Jean Morin MD
[2018-02-12] MEDS: oxyCODONE 10 mg Immediate Release Tab PO PRN (10:30)
[2018-02-12] MEDS: Enoxaparin 40 mg Syringe SC SCH (10:31)
--- NOTE | 2018-02-12 20:01 | PN ---
DATE: 02/12/2018 SUBJECTIVE: This 37-year-old male was examined at bedside. This case was reviewed in detail with himself and nurse, Jeanne Krishnamurthy, registered nurse. The patient is postoperative a partial colectomy for colon cancer with endoscopy for iron-deficiency anemia revealing a gastric ulcer. His official surgical pathology report remains pending and patient is being scheduled for a Lexiscan stress test on 02/14/2018. The stress test is scheduled because of postoperative rapid response evaluation for shortness of breath with EKG changes and positive troponins in the setting of postoperative anemia. At present, the patient is having his diet advanced by surgery. He has had no fever or chills for 24 hours, and is cooperating with the nursing staff. He denies any chest pain or shortness of breath. PHYSICAL EXAMINATION: VITAL SIGNS: Temperature 98, respirations 20, pulse 80, blood pressure 121/81. Pulse ox 95% on room air. HEENT: Head: Normocephalic, atraumatic. Eyes: No icterus. Ears: Clear. Throat: Noninjected. NECK: Supple. HEART: Regular S1, S2. LUNGS: Clear. ABDOMEN: Soft. EXTREMITIES: No edema. SKIN: Without rash. NEUROLOGICAL: Intact. PSYCHOLOGICAL: Calm. VASCULAR: Legs warm to touch. LABORATORY DATA: White count 9600, hemoglobin 11.3, hematocrit 34.4, platelets 443,000. Sodium 137, K 4.0, chloride 98, bicarb 30, BUN 13, creatinine 0.8, random blood sugar 108. Hepatitis A, B, C panels are negative. Repeat 2-D echocardiogram postoperatively showed normal left ventricular ejection fraction and normal wall motion. IMPRESSION: A 37-year-old male admitted with severe iron-deficiency anemia, shortness of breath, and fatigue. On workup, he was found to have gastric ulcer and colon cancer. He is status post partial colectomy, postoperative blood cell transfusion, postoperative rapid response with EKG changes, elevated troponins, and need for Lexiscan stress testing. Surgical pathology remains pending at present. Patient has history of chronic paranoid schizophrenia and at present will continue on cardiac monitoring, heart-healthy soft bland diet. Lexiscan stress test is scheduled for 02/14/2018. Nasal O2 p.r.n. and incentive spirometry every 1 hour. He continues on Zofran 4 mg IV every 6 hours p.r.n. nausea or vomiting, vitamin B12 1000 mcg p.o. daily, Risperdal 2 mg p.o. b.i.d., Pepcid 40 mg p.o. at bedtime, Lovenox 40 mg subcu daily, Cogentin 1 mg p.o. daily. PLAN: Ultimate plan will be to transfer this patient to a subacute rehab for reconditioning, gait training with outpatient medical followup with Dr. Geo Trivedi from Oncology for management of his colon cancer. He will be started on Prevpac for his H. pylori gastric ulcer and will need iron supplementation when able to tolerate this oral medication. All of the above was reviewed in detail with the patient and nursing. Greater than 35 minutes was spent in the care management, review of labs, echoes, orders, and discussion of this patient's care with co-consultants. All questions were answered. Genia Pang MD MTDSanya
--- NOTE | 2018-02-13 01:27 | PN ---
DATE:02/12/2018 SUBJECTIVE: This patient was seen and evaluated earlier today. The patient is now tolerating the diet. Has bowel movements. PHYSICAL EXAMINATION: VITAL SIGNS: Temperature is 98.3, blood pressure 121/88, pulse 82. HEENT: Atraumatic, anicteric. NECK: Supple. HEART: S1 and S2 heard. LUNGS: Bilateral air entry present. ABDOMEN: Soft. Surgical incision noticed. EXTREMITIES: No edema. No cyanosis. LABORATORY DATA: No labs today. The MSI results were negative for MLH-1 and PMS-2 protein suggestive of test positive for MSI (microsatellite instability). IMPRESSION: This 37-year-old patient is admitted with adenocarcinoma of the right colon status post right hemicolectomy done, the specimen report showed microsatellite instability. This patient may benefit from gene testing and family screening for HNPCC. The patient also has a history of gastric ulcer, Helicobacter pylori positive, we need an elective treatment for the Helicobacter pylori. Diet has been advanced as per the Surgery. Continue close followup. This patient would benefit from yearly colonoscopy and also genetic counseling, and also family member screening. Thank you very much. Louise Butcher MD ALESHA
--- NOTE | 2018-02-13 08:23 | CP.PCM.PN ---
Subjective - Date & Time of Evaluation Date of Evaluation: 02/13/18 Time of Evaluation: 08:22 - Subjective Subjective: Surgery: Dr. Oliver Pt seen and examined. Resting comfortably in bed. Pain controlled. Tolerated regular diet. No N/V. +Flatus and BM. Objective - Vital Signs/Intake and Output Vital Signs (last 24 hours): Temp Pulse Resp BP Pulse Ox 98.1 F 75 18 114/77 97 02/13/18 07:45 02/13/18 07:45 02/13/18 07:45 02/13/18 07:45 02/13/18 07:45 Intake and Output: 02/13/18 02/13/18 06:59 18:59 Intake Total 600 Balance 600 - Medications Medications: Current Medications Acetaminophen (Tylenol 325mg Tab) 650 mg PO Q6H PRN PRN Reason: Fever >100.4 F Amoxicillin (Amoxil 500 Mg Cap) 1,000 mg PO ACBD [facility] Stop: 02/22/18 16:31 Benztropine Mesylate (Cogentin) 1 mg PO DAILY [facility] Last Admin: 02/12/18 10:30 Dose: 1 mg Clarithromycin (Biaxin Filmtab) 500 mg PO ACBD [facility] Stop: 02/22/18 16:31 Cyanocobalamin (Vitamin B12 1000 Mcg Tab) 1,000 mcg PO DAILY [facility] Last Admin: 02/12/18 10:31 Dose: 1,000 mcg Enoxaparin Sodium (Lovenox) 40 mg SC DAILY [facility] PRN Reason: Protocol Last Admin: 02/12/18 10:31 Dose: 40 mg Famotidine (Pepcid) 40 mg PO [facility] Last Admin: 02/12/18 21:07 Dose: 40 mg Ferrous Gluconate (Fergon) 324 mg PO TID [facility] Ondansetron HCl (Zofran Inj) 4 mg IVP Q6H PRN PRN Reason: Nausea/Vomiting Oxycodone HCl (Oxycodone Immediate Release Tab) 5 mg PO Q4 PRN PRN Reason: Pain, moderate (4-7) Last Admin: 02/11/18 09:23 Dose: 5 mg Oxycodone HCl (Oxycodone Immediate Release Tab) 10 mg PO Q4 PRN PRN Reason: Pain, severe (8-10) Last Admin: 02/12/18 10:30 Dose: 10 mg Pantoprazole Sodium (Protonix Ec Tab) 40 mg PO ACBD [facility] Stop: 02/22/18 16:31 Risperidone (Risperdal Tab) 2 mg PO BID [facility] PRN Reason: Protocol Last Admin: 02/12/18 18:53 Dose: 2 mg - Labs Labs: 02/11/18 06:30 02/11/18 06:30 PT 14.7 SECONDS (9.4-12.5) H 02/08/18 08:50 INR 1.27 (0.93-1.08) H 02/08/18 08:50 APTT 23.9 Seconds (25.1-36.5) L 02/08/18 08:50 - Constitutional Appears: Non-toxic, No Acute Distress - Head Exam Head Exam: ATRAUMATIC, NORMOCEPHALIC - Eye Exam Eye Exam: EOMI - ENT Exam ENT Exam: Mucous Membranes Moist - Respiratory Exam Respiratory Exam: NORMAL BREATHING PATTERN. absent: Accessory Muscle Use, Respiratory Distress - GI/Abdominal Exam GI & Abdominal Exam: Soft, Tenderness (emanuel-incisional ). absent: Distended, Firm, Guarding, Rigid, Rebound Additional comments: midline incision C/D/I w. farrah in place. - Extremities Exam Extremities Exam: absent: Calf Tenderness, Pedal Edema - Neurological Exam Neurological Exam: Alert, Awake, Oriented x3 - Psychiatric Exam Psychiatric exam: Normal Affect, Normal Mood - Skin Skin Exam: Dry, Normal Color, Warm Assessment and Plan - Assessment and Plan (Free Text) Assessment: 37M s/p right hemicolectomy for colon mass, POD#6 Plan: -Encourage OOB to chair and ambulation -Encourage IS -Pt is clear for D/C from surgical standpoint -Pt can f/u w. Dr. Oliver 1-2 weeks upon discharge -Surgery will sign off, please re-consult if needed -d/w attending Gibson PGY3
[2018-02-13] MEDS: Pantoprazole 40 mg EC Tab PO SCH ×2 (08:39→17:50)
[2018-02-13] MEDS: Enoxaparin 40 mg Syringe SC SCH (10:09)
[2018-02-13] MEDS: oxyCODONE 10 mg Immediate Release Tab PO PRN (10:10)
--- NOTE | 2018-02-13 11:03 | PN ---
DATE: 02/13/2018 SUBJECTIVE: The patient is seen lying in bed on Telemetry. He is currently comfortable. He has had no chest pain. He continues to have some mild incisional pain. CURRENT MEDICATIONS: Remain amoxicillin, Biaxin, Cogentin, iron supplement, Lovenox, oxycodone, Pepcid, Protonix, Risperdal. OBJECTIVE GENERAL: He is a young man who appears comfortable at rest. Blood pressure is 120/86 with a pulse 76, respirations are 16. He is afebrile. HEENT: No JVD. CHEST: Clear to auscultation and percussion. HEART: PMI in normal position. No pathologic murmurs or gallops noted. ABDOMEN: Soft. Bowel sounds are present. EXTREMITIES: No edema. DIAGNOSTIC DATA: No blood work pending. IMPRESSION 1. Status post urgent hemicolectomy for colon cancer. 2. Mildly elevated perioperative cardiac enzymes, likely due to demand ischemia. 3. Obstructive coronary artery disease, less likely. 4. Recent severe anemia. 5. History of psychiatric disorder. RECOMMENDATIONS: Current medications, he will continue for now. A stress test will be planned for the morning to screen for any residual cardiac ischemia. Further recommendations will be made based upon those results. We will be happy to follow as needed. Jean Morin MD
[2018-02-13] MEDS: TraMADol/Apap 37.5/325 mg Tab PO PRN (18:36)
--- NOTE | 2018-02-13 19:59 | PN ---
DATE: 02/13/2018 SUBJECTIVE: This 37-year-old male was examined at the bedside and this case was reviewed in detail with himself and nurse, Leila Jones, registered nurse, and Dr. Louise Butcher from GI. The patient is being readied for Lexiscan stress test in the a.m. He is status post partial colectomy for colon cancer and postoperatively had a rapid response with EKG changes, positive troponins, an unremarkable echocardiogram, and advanced anemia that required postoperative blood transfusion with 4 units of packed red blood cells. At present, he is denying any hematemesis or melena. There is no chest pain or palpitation. 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 PHYSICAL EXAMINATION: VITAL SIGNS: Temperature 98.1, respirations 18, pulse 75, blood pressure 114/77, pulse ox 97% on room air. HEENT: Head normocephalic, atraumatic. Eyes, no icterus. Ears, clear. Throat, noninjected. NECK: Supple. HEART: Regular S1, S2. LUNGS: Clear. ABDOMEN: Soft. EXTREMITIES: No edema. SKIN: Without rash. NEUROLOGICAL: Intact. PSYCHOLOGICAL: Calm. VASCULAR: Legs warm to touch. LABORATORY DATA: White count 9600, hemoglobin 11.3, hematocrit 34.4, platelets 443,000. Sodium 137, K 4, chloride 98, bicarb 30, BUN 13, creatinine 0.8, random blood sugar 108. Calcium 10.1, normal. Hepatitis A, B, C serologies were negative. A 2-D echocardiogram performed postoperatively showed normal left ventricular wall motion and no changes from preop echocardiogram. IMPRESSION: This is a 37-year-old male admitted with weakness, shortness of breath in the setting of advanced iron-deficiency anemia that required preoperative blood cell transfusion and on endoscopy, he was found to have an Helicobacter Pylori positive gastric ulcer and on colonoscopy, a carcinoma for which he underwent a partial colectomy that was complicated postoperatively by a rapid response with EKG changes, positive troponins, postoperative anemia, and the patient received additional postoperative blood cell transfusion. He is currently having his diet advanced by Surgery and is able to swallow medication and has been started on his Helicobacter Pylori protocol of amoxicillin, Biaxin, and Protonix. He has started ferrous gluconate 324 mg p.o. t.i.d. He continues on Lovenox 40 mg subcu daily. He is receiving Pepcid 40 mg p.o. at bedtime and continues on Risperdal 2 mg p.o. b.i.d. and Cogentin 1 mg p.o. daily for history of chronic paranoid schizophrenia. He also continues on vitamin B12, 1000 mcg p.o. daily for vitamin B12 deficiency as well. I have instructed the patient on using incentive spirometer. He continues on nasal O2 p.r.n. He is on a soft bland, heart-healthy diet and official surgical pathology report remains pending. The patient will need outpatient followup when cleared by Cardiology with Dr. Geo Trivedi from Hematology/Oncology and Dr. Louise Butcher from GI. Greater than 35 minutes was spent in the care, management, review of labs and orders, and discussion of this patient's case with Dr. Louise Butcher from and nurse, Leila Jones, registered nurse as well as the patient. All questions were answered. Genia Pang MD MTDD
--- NOTE | 2018-02-13 20:40 | PN ---
DATE: 02/13/2018 SUBJECTIVE: This patient was seen and evaluated earlier today. The patient is moving his bowel, tolerating the diet. PHYSICAL EXAMINATION: VITAL SIGNS: Temperature is 98.5, pulse 85, blood pressure is 109/66. HEENT: Atraumatic, anicteric. NECK: Supple. HEART: S1 and S2 heard. LUNGS: Bilateral air entry present. ABDOMEN: Soft. Surgical incision noticed. EXTREMITIES: No edema. No cyanosis. IMPRESSION: 1. Status post right hemicolectomy for adenocarcinoma. 2. Patient is microsatellite instability positive, needed genetic counseling, and gene testing. I had a detailed discussion with the patient and recommended to follow up with the board regarding the gene counseling. 3. Gastric ulcer, Helicobacter pylori positive, needs elective treatment for Helicobacter pylori and also recommended repeat endoscopy in 2 months time. 4. The patient would need a close oncological followup and psychiatric followup. I had a detailed discussion with Dr. Pang earlier today. Thank you very much for allowing us to participate in the care of the patient. Louise Butcher MD
[2018-02-14] MEDS: Pantoprazole 40 mg EC Tab PO SCH ×2 (08:00→17:06)
[2018-02-14] MEDS ORDERED: Aminophylline 25 mg/ml Inj ONE (08:38)
[2018-02-14] MEDS: TraMADol/Apap 37.5/325 mg Tab PO PRN (12:08)
[2018-02-14] MEDS: Enoxaparin 40 mg Syringe SC SCH (12:09)
[2018-02-14 12:24] LABS: HEMOGLOBIN 11.6 g/dL (14.0-18.0); MEAN CELL VOLUME 79.6 fl (80.0-105.0); MEAN CORPUSCULAR HEMOGLOBIN 25.8 pg (25.0-35.0); MEAN CORPUSCULAR HGB CONC 32.4 g/dl (31.0-37.0); MEAN PLATELET VOLUME 8.9 fl (7.0-11.0); PLATELET COUNT 655 10^3/uL (120.0-450.0); WHITE BLOOD COUNT 11.4 10^3/ul (4.5-11.0)
[2018-02-14 12:33] LABS: ALB/GLOB RATIO 1.2 (1.1-1.8); ALBUMIN 4.2 g/dL (3.0-4.8); ALT/SGPT 27 U/L (7-56); AST/SGOT 46 U/L (17-59); BLOOD UREA NITROGEN 19 mg/dL (7-21); GFR AFRICAN-AMERICAN > 60; GFR NON-AFRICAN AMERICAN > 60
--- NOTE | 2018-02-14 20:23 | CARD ---
APPROVED REPORT Protocol: LEXISCAN Test Type: Lexiscan Sestamibi Stress Test Attending Physician: Dr. Soren Contreras Referring Physician: Dr. Genia Pang Test Indications: R/O CAD and [place]. Height:6 ft 0 in Weight:178lbs Medications: Amoxil, Cogentin, Biaxin, Vit. B12, Lovenox, Pepcid, Fergon, Protonix, Risperdal, Ultracet Medical History: 37 y/o male with possible NSTEMI in settting of GIB and severe anemia due to PUD and colon carcinoma. Target HR: 184 bpm Resting ECG: RSR, STTW changes Resting Heart Rate: 70 bpm Resting Blood Pressure: 110/68mmHg Submaximum (85%): 156 bpm PROCEDURE Pharmacologic stress testing was performed using 0.4mg per 5ml of regadenoson given intravenously over 7-10 seconds. POST EXERCISE Reason for Termination: Protocol completed Target HR: No Max HR: 93 bpm 57% of Maximum Predicted HR: 184 bpm Exercise duration: 05:10 min:sec, 0 Stage Exercise capacity: 1.0METs Max Blood Pressure: 110/68mmHg Blood Pressure response to exercise: Normal Heart Rate response to exercise: Normal Chest Pain: No, None Angina index: 0 Arrhythmia: No, None ST Change: Yes, No change Deviation: 0 mm TEST SUMMARY [id number]. INFUSIONDOSE 101:[id number]/.0.00:36 Tamiko inj over 10 secs. and Hosea inj at 25 sec. INFUSIONDOSE 201:[id number]/60.0. INFUSIONDOSE 301:[id number]/60.0. INFUSIONDOSE 401:000.00.01.096/.0. INFUSIONDOSE 501:000.00.01.092/.0. INFUSIONDOSE 600:100.00.01.093/.0. INTERPRETATION Stress EKG Conclusion: Lexiscan nuclear stress test which was negative for chest pain, additional ischemic change and arrhythmia. Nuclear scans pending. Signed by Soren Contreras Electronically Approved: 02/14/2018 12:17:00 EXAM: Myocardial Perfusion REST/STRESS Stress Test Type: Pharmacologic Imaging Protocol Rest Spect myocardial perfusion imaging was performed in supine position 45 minutes following the injection of 10.3 mCi of Tc-99 Myoview. At peak stress, the patient was injected intravenously with 30.2mCi of Tc-99 tetrofosmin after an infusion time of 0 minutes and 10 seconds. Gated Stress Spect was performed 65 minutes after intravenous Tc-99 Myoview injection. The images were gated to evaluate regional wall motion and calculate ventricular ejection fraction.Images were reconstructed using backfilter projection method in short horizontal and verticle long axis. Spect slices were generated. LV Perfusion The quality of the study is good. The left ventricle is mildly enlarged in size with thickened myocardium. The right ventricle is prominent. The lung uptake is within normal limits. The distribution of tracer reveals mildly heterogeneous uptake without discrete perfusion defect on the stress study. The rest myocardial perfusion study shows no significant change. Wall Motion Wall motion study shows good contractility of the left ventricle. LVEF = 56%. Conclusion 1. Normal SPECT myocardial perfusion study. 2. Heterogeneous activities are most likely due to soft tissue attenuation. 3. Normal gated wall motion of the left ventricle. LVH.
--- NOTE | 2018-02-15 01:59 | PN ---
DATE: 02/14/2018 SUBJECTIVE: This 37-year-old male remains hospitalized, awaiting thallium stress test for a postop rapid response for shortness of breath, where he was noted to have EKG changes and positive troponins. Of note, a second echocardiogram that was performed postoperatively showed no wall abnormalities and the patient is being followed by Cardiology who has recommended a thallium stress test. PHYSICAL EXAMINATION: VITAL SIGNS: At present, temperature is 98.4, respirations 20, pulse 79, and blood pressure 112/59 with a pulse ox of 96%. HEENT: Head: Normocephalic, atraumatic. Eyes: No icterus. Ears: Clear. Throat: Noninjected. NECK: Supple. HEART: Regular, S1 and S2. LUNGS: Clear. ABDOMEN: Soft. EXTREMITIES: No edema. SKIN: Without rash. NEUROLOGIC: Intact. PSYCHOLOGIC: Calm. VASCULAR: Legs warm to touch. LABORATORY DATA: White count 9600, hemoglobin 11.3, hematocrit 34.4, and platelets 443,000. Sodium 137, K 4.0, chloride 98, bicarb 30, BUN 13, creatinine 0.8. Random blood sugar 108. Hepatitis A, B, and C serologies were negative. A 2D echocardiogram showed normal left ventricular wall motion. IMPRESSION: A 37-year-old male admitted with fatigue and shortness of breath in the setting of advanced iron-deficiency anemia, who on endoscopy was found to have an Helicobacter pylori positive gastric ulcer and on colonoscopy, a colon carcinoma, for which he underwent a partial colectomy and is also being treated for chronic paranoid schizophrenia, iron-deficiency anemia, low levels of vitamin B12, and deconditioning. PLAN: As discussed with patient, Dr. Louise Butcher from GI, Dr. Kem Oliver from surgery, and Dr. Geo Trivedi from hematology/oncology, will be to await the pathology report from his partial colectomy to better understand postoperative oncology followup needs. 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 He continues on a soft bland, heart-healthy diet, amoxicillin 1000 mg b.i.d., Biaxin 500 mg p.o. b.i.d., Protonix 40 mg p.o. b.i.d., Cogentin 1 mg p.o. daily, ferrous gluconate 324 mg p.o. t.i.d., Lovenox 40 mg subq daily, Risperdal 2 mg p.o. b.i.d., Ultracet one tablet p.o. every 12 hours p.r.n. severe pain, and vitamin B12 1000 mcg p.o. daily. He was instructed as to the use of incentive spirometry. He has orders for nasal O2 p.r.n. and is ordered to have physical therapy for reconditioning and gait training. The patient is being readied for a subacute rehab stay when medically cleared and all of the above was reviewed in detail with the patient, nursing, and co-consultants. All questions were answered. Genia Pang MD MTDD
--- NOTE | 2018-02-15 02:00 | PN ---
DATE: SUBJECTIVE: This patient was seen and evaluated earlier today. Tolerating the diet. Ambulating. PHYSICAL EXAMINATION: VITAL SIGNS: Temperature is 98.4, blood pressure is 103/58, pulse 67, respirations 18, O2 saturation 98%. HEENT: Atraumatic, anicteric. NECK: Supple. HEART: S1 and S2 heard. LUNGS: Bilateral air entry present. ABDOMEN: Soft. Surgical incision noticed. EXTREMITIES: No edema. No cyanosis. LABORATORY DATA: Hemoglobin 11.6, hematocrit 35.8, WBC 11.4, platelets 655. Chemistries also essentially unremarkable. Total bilirubin is elevated to 1.9. IMPRESSION: 1 This is a 37-year-old patient with adenocarcinoma of the right colon, status post right hemicolectomy done, microsatellite instability positive, possible hereditary nonpolyposis colorectal cancer to be ruled out for gene testing. Genetic counseling for hereditary nonpolyposis colorectal cancer evaluation, also family counseling, discussed with the patient at length before. 2. Gastric ulcers. Helicobacter pylori positive, on triple therapy. Complete the course. 3. Patient's bilirubin is mildly elevated, we will repeat labs in the a.m. and also direct bilirubin. Hepatitis serologies has been negative. Louise Butcher MD
[2018-02-15 08:12] VITALS: BP 111/64; PULSE 60; RESP 17; TEMP 98.2; O2SAT 96
[2018-02-15] MEDS: Enoxaparin 40 mg Syringe SC SCH (10:13)
[2018-02-15] MEDS: Pantoprazole 40 mg EC Tab PO SCH (10:13)
--- NOTE | 2018-02-15 10:58 | CP.PCM.PN ---
Subjective - Date & Time of Evaluation Date of Evaluation: 02/15/18 Time of Evaluation: 10:00 - Subjective Subjective: Seen and examined at the bedside earlier today, chart reviewed. Patient reports regular soft BMs, no reports of melena or bright red blood per rectum. Patient reports improving abdominal pain. No nausea, vomiting, shortness of breath or chest pain. He had a stress test yesterday which was negative, no acute findings. Patient with no new complaints. Tolerating oral intake. Objective - Vital Signs/Intake and Output Vital Signs (last 24 hours): Temp Pulse Resp BP Pulse Ox 98.2 F 60 17 111/64 96 02/15/18 08:12 02/15/18 08:12 02/15/18 08:12 02/15/18 08:12 02/15/18 08:12 Intake and Output: 02/15/18 02/15/18 06:59 18:59 Intake Total 1200 Output Total 1200 Balance 0 - Medications Medications: Current Medications Acetaminophen (Tylenol 325mg Tab) 650 mg PO Q6H PRN PRN Reason: Pain, Mild (1-3) Amoxicillin (Amoxil 500 Mg Cap) 1,000 mg PO ACBD [facility] Stop: 02/22/18 16:31 Last Admin: 02/15/18 10:12 Dose: 1,000 mg Benztropine Mesylate (Cogentin) 1 mg PO DAILY [facility] Last Admin: 02/15/18 10:15 Dose: 1 mg Clarithromycin (Biaxin Filmtab) 500 mg PO ACBD [facility] Stop: 02/22/18 16:31 Last Admin: 02/15/18 10:12 Dose: 500 mg Cyanocobalamin (Vitamin B12 1000 Mcg Tab) 1,000 mcg PO DAILY [facility] Last Admin: 02/15/18 10:14 Dose: 1,000 mcg Enoxaparin Sodium (Lovenox) 40 mg SC DAILY [facility] PRN Reason: Protocol Last Admin: 02/15/18 10:13 Dose: 40 mg Ferrous Gluconate (Fergon) 324 mg PO TID [facility] Last Admin: 02/15/18 10:13 Dose: 324 mg Ondansetron HCl (Zofran Inj) 4 mg IVP Q6H PRN PRN Reason: Nausea/Vomiting Pantoprazole Sodium (Protonix Ec Tab) 40 mg PO ACBD [facility] Stop: 02/22/18 16:31 Last Admin: 02/15/18 10:13 Dose: 40 mg Risperidone (Risperdal Tab) 2 mg PO BID [facility] PRN Reason: Protocol Last Admin: 02/15/18 10:13 Dose: 2 mg Tramadol/Acetaminophen (Ultracet 37.5/325 Mg) 1 tab PO Q12H PRN PRN Reason: Pain, severe (8-10) Stop: 02/16/18 19:00 Last Admin: 02/14/18 12:08 Dose: 1 tab - Labs Labs: 02/14/18 12:10 02/14/18 12:10 PT 14.7 SECONDS (9.4-12.5) H 02/08/18 08:50 INR 1.27 (0.93-1.08) H 02/08/18 08:50 APTT 23.9 Seconds (25.1-36.5) L 02/08/18 08:50 - Constitutional Appears: No Acute Distress - Head Exam Head Exam: NORMOCEPHALIC - Eye Exam Eye Exam: Normal appearance. absent: Scleral icterus - ENT Exam ENT Exam: Mucous Membranes Moist - Neck Exam Neck Exam: Normal Inspection - Respiratory Exam Respiratory Exam: Clear to Ausculation Bilateral, NORMAL BREATHING PATTERN. absent: Respiratory Distress - Cardiovascular Exam Cardiovascular Exam: +S1, +S2 - GI/Abdominal Exam GI & Abdominal Exam: Soft, Normal Bowel Sounds. absent: Guarding, Tenderness, Organomegaly, Rebound Additional comments: midline incision on the abdomen with farrah intact and opens into air, no erythema, drainage or tenderness. - Extremities Exam Extremities Exam: absent: Calf Tenderness, Pedal Edema - Neurological Exam Neurological Exam: Alert, Awake, Oriented x3 - Skin Skin Exam: Dry, Warm Assessment and Plan - Assessment and Plan (Free Text) Assessment: Assessment: s/p Rt Hemicolectomy positive for H pylori Anemia, s/p blood transufsion on admission and post op status post EGD/colon:peptic ulcer disease & ascending colonic lesion s/p ct scan report rectal was thickening Non obstructing 2mm calculi 10 mm non low density mass right hepatic lobe, possible cyst Schizoaffective disorder Anxiety hepatitis panel negative Plan: Monitor H&H, stable incentive spirometry Diet as tolerated as per surgery OOB Triple therapy for H. Pylori , on Amoxil, Biaxin and PPI, patient should complete the 10day course. GI/DVT ppx Discussed with patient that he will need repeat endoscopy. At least 2 months for further follow-up of gastric ulcers. We also discussed about him contacting his siblings for gene testing, patient states that he has not had any contact with them for at least 10 years. He will make contact. He is to be discharged to rehab when medically stable. Seen and discussed with Dr. Butcher
--- NOTE | 2018-02-15 17:14 | DS ---
DATE OF EVALUATION: 02/15/2018 FINAL DIAGNOSES: Severe iron-deficiency anemia, Helicobacter pylori positive gastric ulcer, adenocarcinoma of the colon status post partial colectomy, anemia of iron deficiency requiring blood cell transfusion, chronic paranoid schizophrenia, low levels of vitamin B12. DISPOSITION: [facility]. CONSULTANTS: Dr. Geo Trivedi from Hematology/Oncology, Dr. Louise Butcher from GI, Dr. Kem Oliver from Surgery, Dr. Vasques from Psychiatry. DISCHARGE DIET: Heart-healthy soft bland. DISCHARGE MEDICATIONS: Amoxicillin 1000 mg p.o. b.i.d. for total of 10 days, Biaxin 500 mg p.o. b.i.d. for a total of 10 days, Prevacid 30 mg p.o. b.i.d. for a total of 10 days, Cogentin 1 mg p.o. daily, ferrous gluconate 324 mg p.o. t.i.d., Risperdal 2 mg p.o. b.i.d., vitamin B12 1000 mcg p.o. daily, and Tylenol 650 p.o. every 6 hours p.r.n. severe pain. The patient was advised to have office followup with Dr. Geo Trivedi, Hematology/Oncology; Dr. Louise Butcher, GI; Dr. Vasques, Psychiatry; Dr. Kem Oliver, Surgery. SUMMARY: This 37-year-old male was admitted to [facility] with severe anemia in the setting of shortness of breath and fatigue that required blood cell transfusion and on workup, he was noted to have H. Pylori positive gastric ulcer as well as adenocarcinoma of the colon. He underwent a partial colectomy with pathology report showing a [id number] differentiated adenocarcinoma of the colon on resection that measured 5.5 x 4.5 x 0.9 cm with infiltration through the muscularis propria but no obvious lymph invasion with 48 lymph nodes negative for carcinoma. This was reviewed with Dr. Geo Trivedi who will see the patient in his office for followup but states the patient will not require any chemotherapy given absence of lymph node involvement. The patient also will be transferred to [facility] for snf care. 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 Also, the patient will need follow up with Dr. Kem Oliver regarding suture removal, Dr. Andrew Vasques regarding monitoring of his psychotropic medication, and Dr. Louise Butcher for repeat endoscopy and surveillance colonoscopy given H. pylori gastric ulcer and also history of colon carcinoma. All of the above was reviewed in detail with the patient, nursing, case management. Greater than 35 minutes was spent in the care, review of orders, and outlining of medical therapy for this patient when he goes to the [facility]. All questions were answered. Genia Pang MD MTDSanya
== END 2018-02-15 15:47 | DRG 330 ==
LOC: ED 03:29 → ERH 07:09 → ICU 08:16 → 5RNO 01-31 12:11 → 3RNO 02-08 11:43
PROVIDERS: ADMIT Internal Medicine; ATTEND Internal Medicine
PROC: 30233N1 Transfusion of Nonautologous Red Blood Cells into Peripheral Vein, Percutaneous Approach (ICD-10-PCS; 2018-01-29)
PROC: 0DB98ZX Excision of Duodenum, Via Natural or Artificial Opening Endoscopic, Diagnostic (ICD-10-PCS; 2018-02-01)
PROC: 0DB68ZX Excision of Stomach, Via Natural or Artificial Opening Endoscopic, Diagnostic (ICD-10-PCS; 2018-02-01)
PROC: 0DBK8ZX Excision of Ascending Colon, Via Natural or Artificial Opening Endoscopic, Diagnostic (ICD-10-PCS; 2018-02-02)
PROC: 0DTF0ZZ Resection of Right Large Intestine, Open Approach (ICD-10-PCS; principal; 2018-02-07 10:00)
DX: C18.2 Malignant neoplasm of ascending colon (principal); F20.0 Paranoid schizophrenia; K56.7 Ileus, unspecified; F25.9 Schizoaffective disorder, unspecified; D50.0 Iron deficiency anemia secondary to blood loss (chronic); F17.210 Nicotine dependence, cigarettes, uncomplicated; K91.89 Other postprocedural complications and disorders of digestive system; B96.81 Helicobacter pylori [H. pylori] as the cause of diseases classified elsewhere; K25.9 Gastric ulcer, unspecified as acute or chronic, without hemorrhage or perforation; K44.9 Diaphragmatic hernia without obstruction or gangrene; K29.80 Duodenitis without bleeding; K64.8 Other hemorrhoids; K29.70 Gastritis, unspecified, without bleeding; B19.20 Unspecified viral hepatitis C without hepatic coma; E53.8 Deficiency of other specified B group vitamins; E55.9 Vitamin D deficiency, unspecified; Y83.6 Removal of other organ (partial) (total) as the cause of abnormal reaction of the patient, or of later complication, without mention of misadventure at the time of the procedure; Z59.0 Homelessness; Z91.5 Personal history of self-harm